=== PATIENT | male | born 1945 | race Caucasian/White ===

== ENCOUNTER 2019-11-01 10:23 | Outpatient (CLI) | payer MEDICARE, SELFPAY ==
[2019-11-01 10:38] LABS: Basophils Percent Auto 0.7 % (0.2-1.2); Eosinophils Absolute Auto 0.1 K/mm3 (0-0.3); Eosinophils Percent Auto 2.1 % (0-4.4); Hematocrit 41.5 % (42.0-52.0); Hemoglobin 13.8 g/dL (14.0-18.0); Immature Granulocyte Absolute 0.02 K/mm3 (0.00-0.031); Immature Granulocyte Percent A 0.5 % (0-0.5); Lymphocytes Absolute Auto 0.62 K/mm3 (0.9-3.2); Lymphocytes Percent Auto 14.8 % (18.3-44.2); Mean Corpuscular HGB Conc 33.3 g/dl (32-36); Mean Corpuscular Hemoglobin 33.6 pg (26-34); Mean Platelet Volume 10.3 fl (7.4-10.4); Monocytes Absolute Auto 0.6 K/mm3 (0.1-0.6); Monocytes Percent Auto 13.1 % (2.6-8.5); Neutrophils Absolute Auto 2.9 K/mm3 (1.3-6.7); Neutrophils Percent Auto 68.8 % (45.5-73.1); Platelet Count Result 192 k/mm3 (150-375); Red Blood Count 4.11 M/mm3 (4.6-6.20); Red Cell Distribution Width 13.2 % (11.5-14.5); White Blood Count 4.2 K/mm3 (4.5-10.0)
[2019-11-01 10:49] LABS: Blood Urea Nitrogen 17 mg/dL (8-26); Carbon Dioxide 24 mmol/L (22-30); Chloride 102 mmol/L (98-109); Estimated Glomerular Filt Rate > 60; Glucose 84 mg/dL (70-105); Sodium 139 mmol/L (138-146)
[2019-11-01 12:18] LABS: Alanine Aminotransferase 28 U/L (4-50); Alkaline Phosphatase 91 U/L (38-126); Aspartate Amino Transferase 43 U/L (17-59); Bilirubin,Total 0.4 mg/dL (0.2-1.3); Blood Urea Nitrogen 18 mg/dL (9-20); Carbon Dioxide 23 mmol/L (22-30); Chloride 104 mmol/L (98-107); Estimated Glomerular Filt Rate > 60; Glucose 87 mg/dL (75-110); Potassium 4.3 mmol/L (3.4-5.0); Sodium 136 mmol/L (137-145)
== END 2019-11-01 10:24 | disposition home or self-care (01) ==
PROVIDERS: PCP Family Medicine; Visit Provider Internal Medicine Hematology & Oncology
DX: D75.89 Other specified diseases of blood and blood-forming organs (principal)
CPT/HCPCS: 36415; 80048; 80053; 85025

== ENCOUNTER 2020-01-19 08:04 | Outpatient (CLI) | payer MEDICARE, SELFPAY ==
[2020-01-19 08:42] LABS: Basophils Percent Auto 0.6 % (0.2-1.2); Eosinophils Absolute Auto 0.1 K/mm3 (0-0.3); Eosinophils Percent Auto 2.8 % (0-4.4); Hemoglobin 14.2 g/dL (14.0-18.0); Immature Granulocyte Absolute 0.01 K/mm3 (0.00-0.031); Immature Granulocyte Percent A 0.2 % (0-0.5); Lymphocytes Absolute Auto 0.94 K/mm3 (0.9-3.2); Lymphocytes Percent Auto 18.7 % (18.3-44.2); Mean Corpuscular HGB Conc 33.8 g/dl (32-36); Mean Corpuscular Hemoglobin 33.6 pg (26-34); Mean Corpuscular Volume 99.5 fl (80-100); Mean Platelet Volume 10.4 fl (7.4-10.4); Monocytes Absolute Auto 0.4 K/mm3 (0.1-0.6); Monocytes Percent Auto 8.8 % (2.6-8.5); Neutrophils Absolute Auto 3.5 K/mm3 (1.3-6.7); Neutrophils Percent Auto 68.9 % (45.5-73.1); Platelet Count Result 193 k/mm3 (150-375); Red Blood Count 4.22 M/mm3 (4.6-6.20)
[2020-01-19 13:12] LABS: Anion Gap 8 mmol/L (8-16); Blood Urea Nitrogen 18 mg/dL (9-20); Calcium 9.4 mg/dL (8.4-10.2); Carbon Dioxide 25 mmol/L (22-30); Chloride 105 mmol/L (98-107); Estimated Glomerular Filt Rate > 60; Glucose 98 mg/dL (75-110); Potassium 4.7 mmol/L (3.4-5.0); Sodium 138 mmol/L (137-145); Uric Acid 5.3 mg/dL (3.5-8.5)
[2020-01-19 13:39] LABS: Prostate Specific Antigen 0.2 ng/mL (< OR = 4.0)
== END 2020-01-19 08:05 | disposition home or self-care (01) ==
PROVIDERS: PCP Family Medicine; Visit Provider Nurse Practitioner Family
DX: Z13.1 Encounter for screening for diabetes mellitus (principal); M10.9 Gout, unspecified; D64.9 Anemia, unspecified; Z13.29 Encounter for screening for other suspected endocrine disorder; Z12.5 Encounter for screening for malignant neoplasm of prostate
CPT/HCPCS: 36415; 80048; 84153; 84443; 84550; 85025; G0103

== ENCOUNTER 2020-01-30 09:00 | Outpatient (CLI) | payer MEDICARE, SELFPAY ==
[2020-01-30 10:44] LABS: Cholesterol 153 mg/dL (0-200); HDL Direct 33 mg/dL; Triglycerides 129 mg/dL (<150)
[2020-01-30 10:55] LABS: LDL Cholesterol Direct 95 mg/dL
== END 2020-01-30 09:01 | disposition home or self-care (01) ==
LOC: ANHLAB 09:02
PROVIDERS: Nurse Practitioner Family; PCP Family Medicine; Visit Provider Internal Medicine Hematology & Oncology
DX: Z13.6 Encounter for screening for cardiovascular disorders (principal)
CPT/HCPCS: 36415; 80061

== ENCOUNTER 2020-03-07 11:21 | Outpatient (CLI) | payer MEDICARE, SELFPAY ==
[2020-03-07 16:47] LABS: Anion Gap 12 mmol/L (8-16); Blood Urea Nitrogen 22 mg/dL (9-20); Calcium 9.7 mg/dL (8.4-10.2); Carbon Dioxide 24 mmol/L (22-30); Chloride 104 mmol/L (98-107); Estimated Glomerular Filt Rate > 60; Glucose 98 mg/dL (75-110); Sodium 140 mmol/L (137-145)
== END 2020-03-07 11:22 | disposition home or self-care (01) ==
PROVIDERS: PCP Family Medicine; Referring Provider Internal Medicine Cardiovascular Disease; Visit Provider Internal Medicine Hematology & Oncology
DX: I42.8 Other cardiomyopathies (principal); E87.5 Hyperkalemia
CPT/HCPCS: 36415; 80048

== ENCOUNTER 2020-04-12 01:27 | Outpatient (CLI) | payer MEDICARE, SELFPAY ==
[2020-04-12 21:24] LABS: SARS-CoV-2 RNA PCR Negative
== END 2020-04-12 01:28 | disposition home or self-care (01) ==
LOC: ANHCOVIDDT 01:27
PROVIDERS: PCP Family Medicine; Visit Provider Internal Medicine Gastroenterology
DX: Z01.812 Encounter for preprocedural laboratory examination (principal); Z20.828 Contact with and (suspected) exposure to other viral communicable diseases
CPT/HCPCS: 87635; C9803; U0003

== ENCOUNTER 2020-04-15 00:41 | Day surgery (SDC) | payer MEDICARE, SELFPAY ==
[2020-04-04 11:03] VITALS: BMI 27.1
[2020-04-15 06:49] VITALS: BP 161/91; PULSE 60; RESP 16; TEMP 36.4; O2SAT 99
[2020-04-15] MEDS: LACTATED RINGERS 1,000 ML 150 ML IV CONT (06:57)
--- NOTE | 2020-04-15 07:49 | WPDANESEPPF ---
Anes - Initial Pre Proc Eval Procedure: Operation Date: 04/15/20 08:00 Proposed Procedures p Screening Colonoscopy - Joce Puga MD Date/Time: 04/15/20 07:49 Surgeon: Joce Puga MD Pre Op Diagnosis: Neoplasm Screening Patient Data Age: 74 Gender: M Height: 6 ft Weight: 89.9 kg Last Vital Signs Temp 97.6 F 04/15/20 06:49 Pulse 60 04/15/20 06:49 Resp 16 04/15/20 06:49 BP 161/91 H 04/15/20 06:49 Pulse Ox 99 04/15/20 06:49 Allergies Allergy/AdvReac Type Severity Reaction Status Date / Time No Known Allergies Allergy Verified 04/15/20 06:47 Home Medications Medication Instructions Recorded Confirmed Type metoprolol tartrate 25 mg tablet 25 mg PO BID tablet 06/23/19 04/04/20 History sotalol 120 mg tablet 120 mg PO Q12H 06/23/19 04/04/20 History allopurinol 300 mg PO DAILY 04/04/20 04/04/20 History meloxicam 15 mg PO DAILY 04/04/20 04/04/20 History rosuvastatin 20 mg PO DAILY 04/04/20 04/04/20 History Patient hx anesthesia problems: none Family hx anesthesia problems: none PMFSH Past Medical History Medical History (Updated 03/07/20 @ 10:54 by Hermilo Jacobsen MD) Anemia, unspecified BMI 27.0-27.9,adult Cardiomyopathy Dyspnea on exertion Need for pneumococcal vaccination Tinea cruris Family History Family History Sibling Family history of elevated blood lipids Father Hypertension Family history of heart disease in male family member before age 55 Mother Hypertension Family history of heart disease in male family member before age 55 Social History Social History Smoking status: Never smoker Alcohol intake: never Substance use: never Substance use type: does not use Spiritual care concerns: No Anes - Eval Final PreProcedure Day of Procedure 04/15/20 07:49 Patient weight: normal Heart: irregular rhythm Lungs: clear to auscultation Airway: Mallampati scale class II Neurological: alert and oriented Last oral intake: >/= 8 hours ASA classification: III Anesthetic plan: proceed Anesthesia type and monitoring: general GIVS and standard monitoring Informed Consent: The patient's anesthetic plan and its attendant risks and benefits were discussed with the patient/family/POA. Questions were solicited and answers provided to the satisfaction of the patient/family/POA.
--- NOTE | 2020-04-15 08:00 | PM.HPGS ---
History of Present Illness History of Present Illness Consent: Risks, benefits, and alternatives have been discussed and questions answered. Patient agrees to proceed with procedure. Chief complaint: Neoplasm Screening Narrative: Yehuda Palm is a 74 year old male here for screening colonoscopy, last one about 10 years ago. Also h/o celiac disease. Review of Systems Constitutional: Constitutional: Denies headache(s) and Denies weakness Eyes: Eyes: Denies blurry vision ENT: Reports Normal hearing present, Denies headache(s) and Denies neck pain Cardiovascular: Cardiovascular: Denies chest pain and Denies dyspnea Respiratory: Respiratory: Denies dyspnea Gastrointestinal: Gastrointestinal: Reports no additional gastrointestinal complaints Genitourinary: Genitourinary: Denies dysuria Musculoskeletal: Musculoskeletal: Denies neck pain Integumentary/Breasts: Skin/Breast: Denies dry skin Neurologic: Reports Normal hearing present, Denies headache(s) and Denies weakness Psychiatric: Psychiatric: Denies anxiety Endocrine: Endocrine: Denies change in body appearance Hematologic/Lymphatic: Hematologic/Lymphatic: Denies easy bleeding Allergic/Immunologic: Allergic/Immunologic: Denies urticaria PMF Past Medical History Medical History (Updated 04/15/20 @ 08:01 by Joce Puga MD) Anemia, unspecified BMI 27.0-27.9,adult Cardiomyopathy Celiac disease Colon cancer screening Dyspnea on exertion Need for pneumococcal vaccination Tinea cruris Family History Family History Sibling Family history of elevated blood lipids Father Hypertension Family history of heart disease in male family member before age 55 Mother Hypertension Family history of heart disease in male family member before age 55 Social History Social History Smoking status: Never smoker Alcohol intake: never Substance use: never Substance use type: does not use Spiritual care concerns: No Meds Home Medications and Allergies Home Medications Medication Instructions Recorded Confirmed Type metoprolol tartrate 25 mg tablet 25 mg PO BID tablet 06/23/19 04/04/20 History sotalol 120 mg tablet 120 mg PO Q12H 06/23/19 04/04/20 History allopurinol 300 mg PO DAILY 04/04/20 04/04/20 History meloxicam 15 mg PO DAILY 04/04/20 04/04/20 History rosuvastatin 20 mg PO DAILY 04/04/20 04/04/20 History Allergies Allergy/AdvReac Type Severity Reaction Status Date / Time No Known Allergies Allergy Verified 04/15/20 06:47 Vital Signs Vital Signs - 24 hr 04/15/20 06:49 Temperature 97.6 F Pulse Rate 60 Respiratory Rate 16 Blood Pressure 161/91 H Pulse Oximetry 99 Exam Const: General: comfortable and no acute distress HENMT: General nose exam: Normal nares present Eyes: General: appearance normal, both eyes and all related structures Neck: Neck: no JVD Resp: Auscultation: clear to auscultation bilaterally Cardio: Rate: regular rate Rhythm: regular rhythm GI: Inspection: non-distended GI Palp: Yes Soft to palpation Skin: General skin exam: normal color Neuro: General: gait normal Speech: normal speech Extrem: General: normal to inspection Psych: Mental Status: mental status grossly normal Assessment and Plan Assessment and plan (1) Colon cancer screening: Code(s): Z12.11 - Encounter for screening for malignant neoplasm of colon Status: Acute Assessment and Plan: will proceed with colonoscopy (2) Celiac disease: Code(s): K90.0 - Celiac disease Status: Acute Assessment and Plan: controlled with gluten free diet (3) Cardiomyopathy: Qualifiers: Cardiomyopathy type: other Qualified Code(s): I42.8 - Other cardiomyopathies Code(s): I42.9 - Cardiomyopathy, unspecified Status: Acute
[2020-04-15 08:17] VITALS: BP 88/56; PULSE 58; RESP 15; O2SAT 95
[2020-04-15 08:27] VITALS: BP 101/64; PULSE 54; RESP 15; O2SAT 96
[2020-04-15 08:37] VITALS: BP 120/75; PULSE 57; RESP 19; O2SAT 98
[2020-04-15 08:47] VITALS: BP 130/79; PULSE 53; RESP 17; O2SAT 96
== END 2020-04-15 09:03 | disposition home or self-care (01) ==
PROVIDERS: PCP Family Medicine; Visit Provider Internal Medicine Gastroenterology
PROC: 0DJD8ZZ Inspection of Lower Intestinal Tract, Via Natural or Artificial Opening Endoscopic (ICD-10-PCS; CPT 45378; principal; 2020-04-15 08:00)
DX: Z12.11 Encounter for screening for malignant neoplasm of colon (principal); K64.8 Other hemorrhoids; D12.2 Benign neoplasm of ascending colon; D12.4 Benign neoplasm of descending colon; K90.0 Celiac disease; D64.9 Anemia, unspecified; I42.9 Cardiomyopathy, unspecified
CPT/HCPCS: 45380; 88305; J2704; J7120

== ENCOUNTER 2020-04-22 10:55 | Outpatient (CLI) | payer MEDICARE, SELFPAY ==
[2020-04-22 11:11] LABS: Basophils Percent Auto 0.3 % (0.2-1.2); Eosinophils Absolute Auto 0.2 K/mm3 (0-0.3); Eosinophils Percent Auto 2.9 % (0-4.4); Hematocrit 41.1 % (42.0-52.0); Hemoglobin 13.4 g/dL (14.0-18.0); Immature Granulocyte Absolute 0.01 K/mm3 (0.00-0.031); Immature Granulocyte Percent A 0.2 % (0-0.5); Lymphocytes Absolute Auto 1.33 K/mm3 (0.9-3.2); Lymphocytes Percent Auto 22.8 % (18.3-44.2); Mean Corpuscular HGB Conc 32.6 g/dl (32-36); Mean Corpuscular Hemoglobin 32.8 pg (26-34); Mean Corpuscular Volume 100.5 fl (80-100); Mean Platelet Volume 10.6 fl (7.4-10.4); Monocytes Absolute Auto 0.6 K/mm3 (0.1-0.6); Monocytes Percent Auto 9.4 % (2.6-8.5); Neutrophils Absolute Auto 3.8 K/mm3 (1.3-6.7); Neutrophils Percent Auto 64.4 % (45.5-73.1); Platelet Count Result 171 k/mm3 (150-375); Red Blood Count 4.09 M/mm3 (4.6-6.20); White Blood Count 5.8 K/mm3 (4.5-10.0)
[2020-04-22 14:02] LABS: Alanine Aminotransferase 48 U/L (4-50); Albumin Level 3.8 g/dL (3.5-5.1); Alkaline Phosphatase 79 U/L (38-126); Anion Gap 5 mmol/L (8-16); Aspartate Amino Transferase 50 U/L (17-59); Bilirubin,Total 0.7 mg/dL (0.2-1.3); Blood Urea Nitrogen 19 mg/dL (9-20); Calcium 9.3 mg/dL (8.4-10.2); Carbon Dioxide 28 mmol/L (22-30); Chloride 104 mmol/L (98-107); Estimated Glomerular Filt Rate > 60; Glucose 98 mg/dL (75-110); Lactate Dehydrogenase 358 U/L (313-618); Potassium 4.4 mmol/L (3.4-5.0); Sodium 137 mmol/L (137-145)
[2020-04-22 16:21] LABS: Folic Acid 13.7 ng/mL (2.76->20)
== END 2020-04-22 10:56 | disposition home or self-care (01) ==
LOC: ANHLAB 10:57
PROVIDERS: PCP Family Medicine; Visit Provider Internal Medicine Hematology & Oncology
DX: D75.89 Other specified diseases of blood and blood-forming organs (principal)
CPT/HCPCS: 36415; 80053; 82607; 82746; 83615; 85025

== ENCOUNTER 2021-01-23 10:00 | Outpatient (CLI) | payer MEDICARE, SELFPAY ==
[2021-01-23 10:26] LABS: Basophils Percent Auto 0.4 % (0.2-1.2); Eosinophils Absolute Auto 0.1 K/mm3 (0-0.3); Eosinophils Percent Auto 2.3 % (0-4.4); Hematocrit 42.4 % (42.0-52.0); Hemoglobin 14.2 g/dL (14.0-18.0); Immature Granulocyte Absolute 0.01 K/mm3 (0.00-0.031); Immature Granulocyte Percent A 0.2 % (0-0.5); Lymphocytes Absolute Auto 1.11 K/mm3 (0.9-3.2); Lymphocytes Percent Auto 21.3 % (18.3-44.2); Mean Corpuscular HGB Conc 33.5 g/dl (32-36); Mean Corpuscular Hemoglobin 33.5 pg (26-34); Mean Platelet Volume 10.3 fl (7.4-10.4); Monocytes Absolute Auto 0.5 K/mm3 (0.1-0.6); Neutrophils Absolute Auto 3.4 K/mm3 (1.3-6.7); Neutrophils Percent Auto 65.8 % (45.5-73.1); Platelet Count Result 171 k/mm3 (150-375); Red Blood Count 4.24 M/mm3 (4.6-6.20); Red Cell Distribution Width 13.2 % (11.5-14.5); White Blood Count 5.2 K/mm3 (4.5-10.0)
[2021-01-23 11:38] LABS: Alanine Aminotransferase 62 U/L (4-50); Albumin Level 4.2 g/dL (3.5-5.1); Alkaline Phosphatase 88 U/L (38-126); Anion Gap 5 mmol/L (8-16); Aspartate Amino Transferase 66 U/L (17-59); Blood Urea Nitrogen 24 mg/dL (9-20); Calcium 9.6 mg/dL (8.4-10.2); Carbon Dioxide 28 mmol/L (22-30); Chloride 103 mmol/L (98-107); Estimated Glomerular Filt Rate > 60; Glucose 93 mg/dL (65-110); Potassium 4.9 mmol/L (3.4-5.0); Sodium 136 mmol/L (137-145)
[2021-01-23 12:51] LABS: Folic Acid > 20.0 ng/mL (2.76->20)
== END 2021-01-23 10:01 | disposition home or self-care (01) ==
LOC: ANHLAB 10:06
PROVIDERS: PCP Family Medicine; Visit Provider Internal Medicine Hematology & Oncology
DX: D53.9 Nutritional anemia, unspecified (principal)
CPT/HCPCS: 36415; 80053; 82607; 82746; 85025

== ENCOUNTER 2021-03-04 09:04 | Outpatient (CLI) | payer MEDICARE, SELFPAY ==
[2021-03-04 14:20] LABS: Alanine Aminotransferase 65 U/L (4-50); Albumin Level 4.3 g/dL (3.5-5.1); Alkaline Phosphatase 81 U/L (38-126); Aspartate Amino Transferase 62 U/L (17-59); Bilirubin,Total 0.8 mg/dL (0.2-1.3); Cholesterol 87 mg/dL (0-200); Creatine Kinase 93 U/L (55-170); HDL Direct 27 mg/dL; Triglycerides 113 mg/dL (<150)
[2021-03-04 14:37] LABS: LDL Cholesterol Direct 37 mg/dL
[2021-03-04 14:51] LABS: Prostate Specific Antigen 0.3 ng/mL (< OR = 4.0)
== END 2021-03-04 09:05 | disposition home or self-care (01) ==
LOC: ANHLAB 09:07
PROVIDERS: Physician Assistant Medical; PCP Family Medicine; Visit Provider Internal Medicine Hematology & Oncology
DX: E78.5 Hyperlipidemia, unspecified (principal); Z12.5 Encounter for screening for malignant neoplasm of prostate
CPT/HCPCS: 36415; 80061; 80076; 82550; 84153; G0103

== ENCOUNTER 2021-03-24 09:26 | Outpatient (CLI) | payer MEDICARE, SELFPAY ==
[2021-03-24 19:25] LABS: Hepatitis B Surface Antigen Negative (Negative)
[2021-03-24 19:33] LABS: HAV RESULT Negative (Negative); Hepatitis B Core IgM Result Negative (Negative)
[2021-03-24 19:42] LABS: Hepatitis C Virus Antibody Negative (Negative)
== END 2021-03-24 09:27 | disposition home or self-care (01) ==
LOC: ANHLAB 09:28
PROVIDERS: Visit Provider Physician Assistant Medical
DX: R79.89 Other specified abnormal findings of blood chemistry (principal); R94.5 Abnormal results of liver function studies
CPT/HCPCS: 36415; 80074

== ENCOUNTER → 2021-03-24 10:11 | Outpatient (CLI) | payer MEDICARE, SELFPAY ==
--- NOTE | ~2021-03-24 | US_ITS ---
US abdomen complete EXAMINATION: US Abdomen Complete INDICATION: Elevated liver enzymes PROCEDURE: Realtime High Resolution abdomen ultrasound. COMPARISON: No prior studies for comparison FINDINGS: Gallbladder within normal limits. No gallstones, pericholecystic fluid, gallbladder wall t hickening or biliary dilatation. Common bile duct measures 3 mm. Liver echotexture within normal limits without focal mass. Pancreas within normal limits. Pancreati c tail is obscured by bowel gas. Spleen is unremarkeable. Renal echotexture is within normal limits bilaterally without hydronephrosis, contour deforming mass or renal stone. Right kidney measures 10.5 cm. Left kidney measures 10.2 cm. Visualized aspects of the aorta and IVC are within normal limits. Portal vein is patent. No sonograph ic Cristina's sign indicated by the technologist. IMPRESSION: 1: Normal abdominal ultrasound. Reviewed, dictated and finalized at location A. ANICAL INSULATOR
== END ==
PROVIDERS: PCP Physician Assistant Medical; Visit Provider Physician Assistant Medical
DX: R79.89 Other specified abnormal findings of blood chemistry (principal)
CPT/HCPCS: 76700

== ENCOUNTER 2021-04-29 10:13 | Outpatient (CLI) | payer MEDICARE, SELFPAY ==
[2021-04-29 12:22] LABS: Alanine Aminotransferase 36 U/L (4-50); Albumin Level 4.2 g/dL (3.5-5.1); Alkaline Phosphatase 86 U/L (38-126); Aspartate Amino Transferase 68 U/L (17-59); Bilirubin,Total 0.9 mg/dL (0.2-1.3)
[2021-05-02 05:28] LABS: GGT 24 U/L (3-70)
== END 2021-04-29 10:14 | disposition home or self-care (01) ==
LOC: ANHLAB 10:16
PROVIDERS: PCP Physician Assistant Medical; Visit Provider Internal Medicine Hematology & Oncology
DX: R79.89 Other specified abnormal findings of blood chemistry (principal)
CPT/HCPCS: 36415; 80076; 82977

== ENCOUNTER 2021-06-04 13:02 | Outpatient (CLI) | payer MEDICARE, SELFPAY ==
[2021-06-04 13:44] LABS: Hematocrit 42.6 % (42.0-52.0); Hemoglobin 14.3 g/dL (14.0-18.0); Mean Corpuscular HGB Conc 33.6 g/dl (32-36); Mean Corpuscular Hemoglobin 34.4 pg (26-34); Mean Corpuscular Volume 102.4 fl (80-100); Mean Platelet Volume 10.5 fl (7.4-10.4); Platelet Count Result 170 k/mm3 (150-375); Red Blood Count 4.16 M/mm3 (4.6-6.20); Red Cell Distribution Width 13.1 % (11.5-14.5)
[2021-06-04 15:13] LABS: Alanine Aminotransferase 43 U/L (4-50); Albumin Level 4.2 g/dL (3.5-5.1); Alkaline Phosphatase 84 U/L (38-126); Anion Gap 12 mmol/L (8-16); Aspartate Amino Transferase 54 U/L (17-59); Bilirubin,Total 0.9 mg/dL (0.2-1.3); Blood Urea Nitrogen 28 mg/dL (9-20); Calcium 9.3 mg/dL (8.4-10.2); Carbon Dioxide 22 mmol/L (22-30); Chloride 103 mmol/L (98-107); Estimated Glomerular Filt Rate 59; Glucose 101 mg/dL (65-110); Potassium 4.5 mmol/L (3.4-5.0); Sodium 137 mmol/L (137-145)
[2021-06-04 17:35] LABS: Hepatitis B Surface Antigen Negative (Negative)
[2021-06-04 17:53] LABS: Hepatitis B Surface Anti Res Negative; Hepatitis C Virus Antibody Negative (Negative)
[2021-06-07 21:48] LABS: Actin Antibody (IgG) 69 U (<20)
[2021-06-08 10:01] LABS: Mitochondrial (M2) Ab (IgG) <=20.0 U (<=20.0)
[2021-06-09 20:06] LABS: Alpha Fetoprotein Tumor Marker 7.8 ng/mL (<6.1)
== END 2021-06-04 13:03 | disposition home or self-care (01) ==
LOC: ANHLAB 13:04
PROVIDERS: PCP Physician Assistant Medical; Visit Provider Internal Medicine Gastroenterology
DX: R74.8 Abnormal levels of other serum enzymes (principal)
CPT/HCPCS: 36415; 80053; 82105; 82728; 83516; 83520; 84443; 85027; 86038; 86706; 86803; 87340

== ENCOUNTER → 2021-07-16 08:56 | Outpatient (CLI) | payer MEDICARE, SELFPAY ==
--- NOTE | ~2021-07-16 | CT_ITS ---
EXAMINATION: CT abdomen pelvis w con DATE: 07/16/2021 09:39 INDICATION: Elevated liver enzymes TECHNIQUE: Computed tomography (CT) of the abdomen and pelvis was performed with 100 cc Omnipaque 350 intravenous contrast. The dose-length product was 924.20 mGy-cm. Automated exposure control and iter ative reconstruction technique were employed. COMPARISON: None. FINDINGS: Lung bases are unremarkable. No significant pleural or pericardial effusions. Fatty infiltr ation of the liver. The spleen, pancreas, adrenal glands and kidneys are unremarkable. Gallbladder is present. Colonic diverticulosis without evidence for diverticulitis. Nonobstructive bowel pattern. G allbladder is present. No significant vascular abnormality. No lymphadenopathy. No free air or free f luid. Moderate lumbar spondylosis. No acute osseous abnormality. IMPRESSION: 1. No acute abdominal abnormality. Reviewed, dictated and finalized at location A. [employer] [facility] DIRECTOR
[2021-07-16 09:31] LABS: Estimated Glomerular Filt Rate 59
== END ==
PROVIDERS: Visit Provider Internal Medicine Gastroenterology
DX: R74.8 Abnormal levels of other serum enzymes (principal)
CPT/HCPCS: 74177; Q9967

== ENCOUNTER 2021-08-11 09:35 | Outpatient (CLI) | payer MEDICARE, SELFPAY ==
[2021-08-11 10:57] LABS: Alanine Aminotransferase 59 U/L (4-50); Albumin Level 4.3 g/dL (3.5-5.1); Alkaline Phosphatase 83 U/L (38-126); Anion Gap 8 mmol/L (8-16); Aspartate Amino Transferase 59 U/L (17-59); Bilirubin,Total 0.7 mg/dL (0.2-1.3); Blood Urea Nitrogen 27 mg/dL (9-20); Calcium 8.9 mg/dL (8.4-10.2); Carbon Dioxide 22 mmol/L (22-30); Chloride 105 mmol/L (98-107); Estimated Glomerular Filt Rate > 60; Glucose 96 mg/dL (65-110); Potassium 4.9 mmol/L (3.4-5.0); Sodium 135 mmol/L (137-145)
[2021-08-11 12:08] LABS: Iron 88 ug/dL (49-181)
[2021-08-11 12:23] LABS: Percent Iron Saturation 27 % (20-50)
[2021-08-13 13:42] LABS: Actin Antibody (IgG) 68 U (<20)
== END 2021-08-11 09:36 | disposition home or self-care (01) ==
LOC: ANHLAB 09:36
PROVIDERS: Internal Medicine Gastroenterology; Visit Provider Internal Medicine Hematology & Oncology
DX: R74.8 Abnormal levels of other serum enzymes (principal); R77.8 Other specified abnormalities of plasma proteins; R89.4 Abnormal immunological findings in specimens from other organs, systems and tissues
CPT/HCPCS: 36415; 80053; 82728; 83516; 83540; 83550

== ENCOUNTER 2021-11-18 01:56 | Day surgery (SDC) | payer MEDICARE, SELFPAY ==
[2021-11-03 13:59] VITALS: BMI 27.8
[2021-11-18 08:36] VITALS: BP 133/76; PULSE 52; RESP 16; TEMP 36.4; O2SAT 100
[2021-11-18] MEDS: LACTATED RINGERS 1,000 ML 150 ML IV CONT (08:44)
--- NOTE | 2021-11-18 09:11 | WPDANESEPPF ---
Anes - Initial Pre Proc Eval Procedure: Operation Date: 11/18/21 10:00 Proposed Procedures p Esophagogastroduodenoscopy - Joce Puga MD Date/Time: 11/18/21 09:11 Surgeon: Joce Puga MD Pre Op Diagnosis: Celiac Disease Patient Data Age: 76 Gender: M Height: 1.83 m Weight: 92.8 kg Last Vital Signs Temp 97.5 F L 11/18/21 08:36 Pulse 52 L 11/18/21 08:36 Resp 16 11/18/21 08:36 BP 133/76 11/18/21 08:36 Pulse Ox 100 11/18/21 08:36 O2 Del Method Room Air 11/18/21 08:36 Allergies Allergy/AdvReac Type Severity Reaction Status Date / Time No Known Allergies Allergy Verified 11/18/21 08:35 Home Medications Medication Instructions Recorded Confirmed Type metoprolol tartrate 25 mg tablet 25 mg PO BID 06/23/19 11/18/21 History sotalol 120 mg tablet 120 mg PO Q12H 06/23/19 11/18/21 History meloxicam 15 mg tablet See Rx Instructions .Route 08/07/21 11/18/21 Rx .COMPLEX #30 tabs allopurinol 300 mg tablet See Rx Instructions .Route 11/03/21 11/18/21 Rx .COMPLEX #90 tabs rosuvastatin 20 mg tablet See Rx Instructions .Route 11/03/21 11/18/21 Rx .COMPLEX #90 tabs Patient hx anesthesia problems: none Family hx anesthesia problems: none Results Review: All pre-operative results and documents have been reviewed as part of the pre-operative evaluation. [facility] Past Medical History Medical History (Updated 09/16/21 @ 16:49 by JENNIFER Castillo) Abnormal results of liver function studies Anemia, unspecified BMI 27.0-27.9,adult BMI 28.0-28.9,adult Cardiomyopathy Celiac disease Colon cancer screening Dyspnea on exertion Fatty liver History of adenomatous polyp of colon Need for pneumococcal vaccination Overweight (BMI 25.0-29.9) Tinea cruris Surgical History Surgical History Hx of cataract surgery Family History Family History Sibling Family history of elevated blood lipids Father Hypertension Family history of heart disease in male family member before age 55 Mother Hypertension Family history of heart disease in male family member before age 55 Social History Social History Smoking status: Former smoker Tobacco type: cigarettes Alcohol intake: never Substance use: never Substance use type: does not use Living arrangements: with family Additional living arrangements comments: Gender identity (if verbalized by the patient): Male Sexual Orientation (if Verbalized by the Patient): Straight or Heterosexual Spiritual care concerns: No Agree to blood products: Yes Anes - Eval Final PreProcedure Day of Procedure 11/18/21 09:11 Patient weight: overweight Heart: regular rate and rhythm Lungs: clear to auscultation Neurological: alert and oriented Last oral intake: >/= 8 hours ASA classification: III Emergent: no Anesthetic plan: proceed Anesthesia type and monitoring: general GIVS and standard monitoring Results Review: All pre-operative results and documents have been reviewed as part of the pre-operative evaluation. Informed Consent: The patient's anesthetic plan and its attendant risks and benefits were discussed with the patient/family/POA. Questions were solicited and answers provided to the satisfaction of the patient/family/POA.
--- NOTE | 2021-11-18 09:25 | PM.HPGS ---
History of Present Illness History of Present Illness Consent: Risks, benefits, and alternatives have been discussed and questions answered. Patient agrees to proceed with procedure. Chief complaint: Celiac Disease Narrative: Yehuda Palm is a 76 year old male with known history of celiac disease diagnosed in 2017, now he is on gluten free diet and doing quite well, here to reassess duodenum again. Review of Systems Constitutional: Constitutional: Denies headache(s) and Denies weakness Eyes: Eyes: Denies blurry vision ENT: Reports Normal hearing present, Denies headache(s) and Denies neck pain Cardiovascular: Cardiovascular: Denies chest pain and Denies dyspnea Respiratory: Respiratory: Denies dyspnea Gastrointestinal: Gastrointestinal: Reports no additional gastrointestinal complaints Genitourinary: Genitourinary: Denies dysuria Musculoskeletal: Musculoskeletal: Denies neck pain Integumentary/Breasts: Skin/Breast: Denies dry skin Neurologic: Reports Normal hearing present, Denies headache(s) and Denies weakness Psychiatric: Psychiatric: Denies anxiety Endocrine: Endocrine: Denies change in body appearance Hematologic/Lymphatic: Hematologic/Lymphatic: Denies easy bleeding Allergic/Immunologic: Allergic/Immunologic: Denies urticaria [facility] Past Medical History Medical History (Updated 09/16/21 @ 16:49 by JENNIFER Castillo) Abnormal results of liver function studies Anemia, unspecified BMI 27.0-27.9,adult BMI 28.0-28.9,adult Cardiomyopathy Celiac disease Colon cancer screening Dyspnea on exertion Fatty liver History of adenomatous polyp of colon Need for pneumococcal vaccination Overweight (BMI 25.0-29.9) Tinea cruris Surgical History Surgical History Hx of cataract surgery Family History Family History Sibling Family history of elevated blood lipids Father Hypertension Family history of heart disease in male family member before age 55 Mother Hypertension Family history of heart disease in male family member before age 55 Social History Social History Smoking status: Former smoker Tobacco type: cigarettes Alcohol intake: never Substance use: never Substance use type: does not use Living arrangements: with family Additional living arrangements comments: Gender identity (if verbalized by the patient): Male Sexual Orientation (if Verbalized by the Patient): Straight or Heterosexual Spiritual care concerns: No Agree to blood products: Yes Meds Home Medications and Allergies Home Medications Medication Instructions Recorded Confirmed Type metoprolol tartrate 25 mg tablet 25 mg PO BID 06/23/19 11/18/21 History sotalol 120 mg tablet 120 mg PO Q12H 06/23/19 11/18/21 History meloxicam 15 mg tablet See Rx Instructions .Route 08/07/21 11/18/21 Rx .COMPLEX #30 tabs allopurinol 300 mg tablet See Rx Instructions .Route 11/03/21 11/18/21 Rx .COMPLEX #90 tabs rosuvastatin 20 mg tablet See Rx Instructions .Route 11/03/21 11/18/21 Rx .COMPLEX #90 tabs Allergies Allergy/AdvReac Type Severity Reaction Status Date / Time No Known Allergies Allergy Verified 11/18/21 08:35 Vital Signs Vital Signs - 24 hr 11/18/21 08:36 Temperature 97.5 F L Pulse Rate 52 L Respiratory Rate 16 Blood Pressure 133/76 Pulse Oximetry 100 Oxygen Delivery Room Air Exam Const: General: comfortable and no acute distress HENMT: General nose exam: Normal nares present Eyes: General: appearance normal, both eyes and all related structures Neck: Neck: no JVD Resp: Auscultation: clear to auscultation bilaterally Cardio: Rate: regular rate Rhythm: regular rhythm GI: Inspection: non-distended GI Palp: Yes Soft to palpation Skin: General skin exam: normal color Neuro: General
[2021-11-18 09:45] VITALS: BP 111/66; PULSE 55; RESP 12; O2SAT 100
[2021-11-18 09:55] VITALS: BP 121/64; PULSE 52; RESP 12; O2SAT 100
[2021-11-18 10:05] VITALS: BP 124/68; PULSE 53; RESP 13; O2SAT 100
== END 2021-11-18 10:13 | disposition home or self-care (01) ==
PROVIDERS: PCP Family Medicine; Visit Provider Internal Medicine Gastroenterology
PROC: 0DJ08ZZ Inspection of Upper Intestinal Tract, Via Natural or Artificial Opening Endoscopic (ICD-10-PCS; CPT 43235; principal; 2021-11-18 10:00)
DX: K90.0 Celiac disease (principal); K29.50 Unspecified chronic gastritis without bleeding; D64.9 Anemia, unspecified; I42.9 Cardiomyopathy, unspecified; K76.0 Fatty (change of) liver, not elsewhere classified; Z86.010 Personal history of colon polyps; Z87.891 Personal history of nicotine dependence
CPT/HCPCS: 43239; 88305; J2704; J7120

== ENCOUNTER 2022-01-20 11:57 | Outpatient (CLI) | payer MEDICARE, SELFPAY ==
[2022-01-20 12:13] LABS: Basophils Percent Auto 0.3 % (0.2-1.2); Eosinophils Absolute Auto 0.1 K/mm3 (0-0.3); Eosinophils Percent Auto 2.1 % (0-4.4); Hemoglobin 13.8 g/dL (14.0-18.0); Immature Granulocyte Absolute 0.02 K/mm3 (0.00-0.031); Immature Granulocyte Percent A 0.3 % (0-0.5); Lymphocytes Absolute Auto 1.26 K/mm3 (0.9-3.2); Lymphocytes Percent Auto 20.4 % (18.3-44.2); Mean Corpuscular HGB Conc 33.7 g/dl (32-36); Mean Corpuscular Hemoglobin 34.4 pg (26-34); Mean Corpuscular Volume 102.2 fl (80-100); Mean Platelet Volume 10.2 fl (7.4-10.4); Monocytes Absolute Auto 0.5 K/mm3 (0.1-0.6); Monocytes Percent Auto 8.4 % (2.6-8.5); Neutrophils Absolute Auto 4.2 K/mm3 (1.3-6.7); Neutrophils Percent Auto 68.5 % (45.5-73.1); Platelet Count Result 156 k/mm3 (150-375); Red Blood Count 4.01 M/mm3 (4.6-6.20); Red Cell Distribution Width 13.2 % (11.5-14.5); White Blood Count 6.2 K/mm3 (4.5-10.0)
[2022-01-20 13:46] LABS: Alanine Aminotransferase 45 U/L (6-50); Albumin Level 4.3 g/dL (3.5-5.1); Alkaline Phosphatase 86 U/L (38-126); Anion Gap 9 mmol/L (8-16); Aspartate Amino Transferase 47 U/L (17-59); Bilirubin,Total 0.7 mg/dL (0.2-1.3); Blood Urea Nitrogen 19 mg/dL (9-20); Calcium 9.5 mg/dL (8.4-10.2); Carbon Dioxide 22 mmol/L (22-30); Chloride 106 mmol/L (98-107); Estimated Glomerular Filt Rate > 60; Glucose 109 mg/dL (65-110); Potassium 4.3 mmol/L (3.4-5.0); Sodium 137 mmol/L (137-145)
[2022-01-20 14:47] LABS: Folic Acid 18.6 ng/mL (2.76->20)
== END 2022-01-20 11:58 | disposition home or self-care (01) ==
LOC: ANHLAB 11:59
PROVIDERS: PCP Family Medicine; Visit Provider Internal Medicine Hematology & Oncology
DX: D53.9 Nutritional anemia, unspecified (principal)
CPT/HCPCS: 36415; 80053; 82607; 82746; 85025

== ENCOUNTER 2022-04-06 10:50 | Outpatient (CLI) | payer MEDICARE, SELFPAY ==
[2022-04-06 11:12] LABS: Hematocrit 41.2 % (42.0-52.0); Mean Corpuscular Hemoglobin 34.4 pg (26-34); Mean Corpuscular Volume 101.2 fl (80-100); Mean Platelet Volume 10.3 fl (7.4-10.4); Platelet Count Result 180 k/mm3 (150-375); Red Blood Count 4.07 M/mm3 (4.6-6.20); Red Cell Distribution Width 13.6 % (11.5-14.5); White Blood Count 5.8 K/mm3 (4.5-10.0)
[2022-04-06 16:13] LABS: Iron 125 ug/dL (49-181)
[2022-04-06 16:14] LABS: Alanine Aminotransferase 40 U/L (6-50); Albumin Level 4.4 g/dL (3.5-5.1); Alkaline Phosphatase 70 U/L (38-126); Anion Gap 11 mmol/L (8-16); Aspartate Amino Transferase 48 U/L (17-59); Blood Urea Nitrogen 19 mg/dL (9-20); Calcium 9.4 mg/dL (8.4-10.2); Carbon Dioxide 24 mmol/L (22-30); Chloride 103 mmol/L (98-107); Estimated Glomerular Filt Rate > 60; Glucose 99 mg/dL (65-110); Potassium 4.1 mmol/L (3.4-5.0); Sodium 138 mmol/L (137-145)
[2022-04-06 16:18] LABS: INR 1.1; Prothrombin Time 13.5 Seconds (11.1-14.7)
[2022-04-06 16:23] LABS: Percent Iron Saturation 37 % (20-50)
[2022-04-09 14:00] LABS: GGT 25 U/L (3-70)
[2022-04-09 22:50] LABS: Actin Antibody (IgG) 59 U (<20)
[2022-04-11 22:33] LABS: Ceruloplasmin 25 mg/dL (18-36)
[2022-04-12 09:57] LABS: LKM 1 Antibody <=20.0 U (<=20.0)
[2022-04-12 16:22] LABS: Alpha Fetoprotein Tumor Marker 6.8 ng/mL (<6.1)
[2022-04-13 23:32] LABS: ALT 30 U/L (9-46); Alpha-2-Macroglobulin 196 mg/dL (106-279); Apolipoprotein A1 126 mg/dL (94-176); Fibrosis Score 0.45; Fibrosis Stage F1-F2; GGT 25 U/L (3-70); Haptoglobin 157 mg/dL (43-212); Necroinflammat Act Grade A0-A1; Total Bilirubin 0.8 mg/dL (0.2-1.2)
== END 2022-04-06 10:51 | disposition home or self-care (01) ==
PROVIDERS: PCP Family Medicine; Visit Provider Nurse Practitioner Family
DX: K76.0 Fatty (change of) liver, not elsewhere classified (principal); R94.5 Abnormal results of liver function studies; K90.0 Celiac disease
CPT/HCPCS: 36415; 80053; 81596; 82104; 82105; 82390; 82728; 82977; 83516; 83540; 83550; 85027; 85610; 86038; 86376

== ENCOUNTER 2022-05-04 03:19 | Outpatient (CLI) | payer MEDICARE, SELFPAY ==
[2022-04-22 13:05] VITALS: BMI 28.5
--- NOTE | 2022-04-22 13:05 | PC.NURSE ---
Pre Radiology instructions Report to the RADIOLOGY DEPT at time _0900_ on date _05/04/22_. Procedure Time: _929_. YOU MAY BE MONITORED AT HOSPITAL FOR UP TO 4 HOURS AFTER YOUR PROCEDURE. One visitor will be allowed to accompany the patient into the hospital. The visitor will be instructed to remain with patient at all times or leave the building due to restrictions. We will allow the visitor to come back to the postoperative area when patient is ready. NO children visitors allowed at this time. You and your visitor will be asked to self-screen and do not enter if you have any COVID symptoms. A mask is required within the hospital. Patients are to have no food or drink 6 hours prior to procedure time (0330 AM) Driving will be restricted after the procedure, you must have a person to drive you home. Labs will NOT be drawn. When the procedure is completed, you will be taken to outpatient where you will be monitored for several hours. You may have one visitor in this area. Other than holding anti-coagulants, patient may take other medication(s) as scheduled. Prior to your appointment date patients are instructed to hold anti-coagulants after discussing with ordering provider to stop. If unable to discontinue anti-coagulants please notify radiologist. No aspirin or warfarin (Coumadin) for 7 days prior to the procedure. No clopidogrel (Plavix), ticagrelor (Brilinta), prasugrel (Effient) or dabigatran (Pradaxa) for 5 days prior to the procedure. No rivaroxaban (Xarelto), apixaban (Eliquis), dipyridamole (Aggrenox or Persantine) or cilostazol (Pletal) for 2 days prior to the procedure. Medications to discontinue per physician: N/A Date to take last dose: Please leave all valuables, including medications, at home the day of procedure. The hospital will not accept responsibility for valuables. Wear comfortable, loose fitting clothing. Follow any additional instructions given to you from ordering provider. Telephone instructions given to _PATIENT_and asked if any additional questions and then verbalized understanding. Patient advised to call scheduling provider office or registration scheduling [phone] if any additional questions.
[2022-05-04] VITALS (10 sets, daily range): BP systolic 122–147; BP diastolic 65–92; PULSE 53–66; RESP 16–17; O2SAT 97–100
--- NOTE | ~2022-05-04 | US_ITS ---
EXAMINATION: US biopsy liver DATE: 05/04/2022 10:40 INDICATION: Abnormal liver function tests. TECHNIQUE: The procedure including the risks, benefits, and alternatives was discussed with the patie nt. Risks discussed included bleeding and infection. The patient understood the risks and agreed to p roceed. The skin overlying the liver was prepped and draped in usual sterile fashion. Anesthetic was administered with 1% lidocaine subcutaneously. An 18 gauge core biopsy needle was then used to obta in 3 core biopsy specimens under continuous sonographic guidance. The entry site was cleaned and dres sed. There were no immediate complications. FINDINGS: Ultrasound images demonstrate the needle in right hepatic lobe. IMPRESSION: 1. Ultrasound-guided random core needle biopsy of the liver. Reviewed, dictated and finalized at location A. 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
--- NOTE | 2022-05-04 12:34 | SUR.PHASEII ---
PATIENT DRINKING CLEAR LIQUIDS PER RADIOLOGIST.
== END 2022-05-04 14:19 | disposition home or self-care (01) ==
PROVIDERS: PCP Family Medicine; Referring Provider Radiology Diagnostic Radiology; Visit Provider Nurse Practitioner Family
PROC: BF45ZZZ Ultrasonography of Liver (ICD-10-PCS; CPT 47000; principal; 2022-05-04 09:30)
DX: R89.9 Unspecified abnormal finding in specimens from other organs, systems and tissues (principal)
CPT/HCPCS: 47000; 76942; 88307; 88312; 88313; 88342

== ENCOUNTER 2022-05-15 09:47 | Outpatient (CLI) | payer MEDICARE, SELFPAY | END 2022-05-15 09:48 | disposition home or self-care (01) | LOC: ANHLAB 09:49 | PROVIDERS: PCP Family Medicine; Visit Provider Nurse Practitioner | DX: E83.119 Hemochromatosis, unspecified (principal); R79.89 Other specified abnormal findings of blood chemistry | CPT/HCPCS: 36415; 81256 ==

== ENCOUNTER 2022-08-17 11:02 | Outpatient (CLI) | payer MEDICARE, SELFPAY ==
[2022-08-17 11:16] LABS: Basophils Percent Auto 0.6 % (0.2-1.2); Eosinophils Absolute Auto 0.1 K/mm3 (0-0.3); Eosinophils Percent Auto 2.1 % (0-4.4); Hematocrit 40.7 % (42.0-52.0); Hemoglobin 13.7 g/dL (14.0-18.0); Immature Granulocyte Absolute 0.01 K/mm3 (0.00-0.031); Immature Granulocyte Percent A 0.2 % (0-0.5); Lymphocytes Absolute Auto 1.11 K/mm3 (0.9-3.2); Lymphocytes Percent Auto 21.3 % (18.3-44.2); Mean Corpuscular HGB Conc 33.7 g/dl (32-36); Mean Corpuscular Hemoglobin 34.3 pg (26-34); Mean Corpuscular Volume 101.8 fl (80-100); Monocytes Absolute Auto 0.5 K/mm3 (0.1-0.6); Neutrophils Absolute Auto 3.4 K/mm3 (1.3-6.7); Neutrophils Percent Auto 65.8 % (45.5-73.1); Platelet Count Result 157 k/mm3 (150-375); Red Cell Distribution Width 12.9 % (11.5-14.5); White Blood Count 5.2 K/mm3 (4.5-10.0)
[2022-08-17 11:20] LABS: Blood Urea Nitrogen 21 mg/dL (8-26); Carbon Dioxide 27 mmol/L (22-30); Chloride 106 mmol/L (98-109); Estimated Glomerular Filt Rate > 60; Glucose 88 mg/dL (70-105); Potassium 4.9 mmol/L (3.5-4.9); Sodium 139 mmol/L (138-146)
[2022-08-17 12:30] LABS: Alanine Aminotransferase 46 U/L (6-50); Albumin Level 4.2 g/dL (3.5-5.1); Alkaline Phosphatase 80 U/L (38-126); Anion Gap 7 mmol/L (8-16); Aspartate Amino Transferase 47 U/L (17-59); Bilirubin,Total 0.9 mg/dL (0.2-1.3); Blood Urea Nitrogen 21 mg/dL (9-20); Calcium 8.9 mg/dL (8.4-10.2); Carbon Dioxide 25 mmol/L (22-30); Chloride 104 mmol/L (98-107); Estimated Glomerular Filt Rate > 60; Glucose 90 mg/dL (65-110); Potassium 4.9 mmol/L (3.4-5.0); Sodium 136 mmol/L (137-145)
[2022-08-17 13:42] LABS: Iron 100 ug/dL (49-181)
[2022-08-17 13:51] LABS: Percent Iron Saturation 30 % (20-50)
== END 2022-08-17 11:03 | disposition home or self-care (01) ==
LOC: ANHLAB 11:05
PROVIDERS: PCP Family Medicine; Visit Provider Internal Medicine Hematology & Oncology
DX: D53.9 Nutritional anemia, unspecified (principal)
CPT/HCPCS: 36415; 80047; 80053; 82607; 82728; 83540; 83550; 85025

== ENCOUNTER → 2022-10-22 08:59 | Outpatient (CLI) | payer MEDICARE, SELFPAY | PROVIDERS: PCP Family Medicine; Visit Provider Nurse Practitioner Family | DX: M25.562 Pain in left knee (principal) | CPT/HCPCS: 73562 ==

== ENCOUNTER 2023-01-08 08:50 | Outpatient (CLI) | payer MEDICARE, SELFPAY ==
--- NOTE | ~2023-01-08 | CT_ITS ---
EXAMINATION: CT knee LT wo con DATE: 01/08/2023 09:41 INDICATION: Left knee pain. TECHNIQUE: Computed tomography (CT) of the left knee was performed without intravenous contrast. Auto mated exposure control and iterative reconstruction technique were employed. The dose-length product was 528.69 mGy-cm. COMPARISON: Left knee radiograph 10/22/2022 FINDINGS: There is varus attenuation at the knee. No fracture. There are benign bone islands in later al femoral condyle. There is moderate osteoarthritis of medial compartment and mild osteoarthritis of lateral and patellofemoral compartments. No knee joint effusion. There is mild prepatellar and super ficial infrapatellar bursitis. IMPRESSION: 1. Moderate left knee osteoarthritis. Reviewed, dictated and finalized at location A.
== END 2023-01-08 08:51 | disposition home or self-care (01) ==
PROVIDERS: PCP Family Medicine; Visit Provider Nurse Practitioner Family
DX: M25.562 Pain in left knee (principal); Z87.828 Personal history of other (healed) physical injury and trauma; M17.12 Unilateral primary osteoarthritis, left knee
CPT/HCPCS: 73700

== ENCOUNTER 2023-01-22 10:38 | Outpatient (CLI) | payer MEDICARE, SELFPAY ==
[2023-01-22 11:27] LABS: Basophils Percent Auto 0.4 % (0.2-1.2); Eosinophils Absolute Auto 0.1 K/mm3 (0-0.3); Eosinophils Percent Auto 2.9 % (0-4.4); Hematocrit 38.6 % (42.0-52.0); Immature Granulocyte Absolute 0.01 K/mm3 (0.00-0.031); Immature Granulocyte Percent A 0.2 % (0-0.5); Lymphocytes Percent Auto 14.6 % (18.3-44.2); Mean Corpuscular HGB Conc 33.7 g/dl (32-36); Mean Corpuscular Hemoglobin 35.5 pg (26-34); Mean Corpuscular Volume 105.5 fl (80-100); Mean Platelet Volume 10.2 fl (7.4-10.4); Monocytes Absolute Auto 0.5 K/mm3 (0.1-0.6); Neutrophils Absolute Auto 3.4 K/mm3 (1.3-6.7); Neutrophils Percent Auto 70.9 % (45.5-73.1); Platelet Count Result 155 k/mm3 (150-375); Red Blood Count 3.66 M/mm3 (4.6-6.20); Red Cell Distribution Width 13.5 % (11.5-14.5); White Blood Count 4.8 K/mm3 (4.5-10.0)
[2023-01-22 11:36] LABS: Iron 85 ug/dL (49-181)
[2023-01-22 11:41] LABS: Alanine Aminotransferase 37 U/L (6-50); Albumin Level 4.2 g/dL (3.5-5.1); Alkaline Phosphatase 73 U/L (38-126); Anion Gap 7 mmol/L (8-16); Aspartate Amino Transferase 43 U/L (17-59); Bilirubin,Total 1.2 mg/dL (0.2-1.3); Blood Urea Nitrogen 21 mg/dL (9-20); Calcium 9.2 mg/dL (8.4-10.2); Carbon Dioxide 26 mmol/L (22-30); Chloride 106 mmol/L (98-107); Estimated Glomerular Filt Rate > 60; Glucose 99 mg/dL (65-110); Potassium 4.3 mmol/L (3.4-5.0); Sodium 139 mmol/L (137-145)
[2023-01-22 11:47] LABS: Percent Iron Saturation 25 % (20-50)
[2023-01-22 11:53] LABS: Anisocytosis 1+ (NORMAL); Platelet Estimate Adequate (Adequate); Schistocytes None Seen (NORMAL)
[2023-01-22 12:47] LABS: Folic Acid > 20.0 ng/mL (2.76->20)
== END 2023-01-22 10:39 | disposition home or self-care (01) ==
LOC: ANHLAB 10:41
PROVIDERS: PCP Family Medicine; Visit Provider Internal Medicine Hematology & Oncology
DX: E83.110 Hereditary hemochromatosis (principal)
CPT/HCPCS: 36415; 80053; 82607; 82728; 82746; 83540; 83550; 85025

== ENCOUNTER 2023-01-28 10:27 | Outpatient (CLI) | payer MEDICARE, SELFPAY ==
[2023-01-28 11:43] LABS: Cholesterol 82 mg/dL (0-200); HDL Direct 23 mg/dL; Triglycerides 93 mg/dL (<150)
[2023-01-28 11:53] LABS: LDL Cholesterol Direct 41 mg/dL
[2023-01-28 16:37] LABS: Prostate Specific Antigen 0.4 ng/mL (< OR = 4.0)
== END 2023-01-28 10:28 | disposition home or self-care (01) ==
PROVIDERS: Nurse Practitioner Family; PCP Family Medicine; Visit Provider Internal Medicine Hematology & Oncology
DX: E66.3 Overweight (principal); E78.5 Hyperlipidemia, unspecified; G47.33 Obstructive sleep apnea (adult) (pediatric); Z12.5 Encounter for screening for malignant neoplasm of prostate
CPT/HCPCS: 36415; 80061; 84153; G0103

== ENCOUNTER 2023-11-04 06:42 | Outpatient (CLI) | payer MEDICARE, SELFPAY ==
--- NOTE | ~2023-11-04 | CT_ITS ---
EXAMINATION: CT brain wo/w con DATE: 11/04/2023 07:15 INDICATION: Amnesia. TECHNIQUE: Computed tomography (CT) of the abdomen and pelvis was performed without and with 100 cc O mnipaque 350 intravenous contrast. The dose-length product was 1210.67 mGy-cm. Automated exposure con trol and iterative reconstruction technique were employed. COMPARISON: None. FINDINGS: Generalized atrophy, within normal limits for age. Chronic right lacunar infarction. There are scattered mild periventricular and subcortical white matter changes, most likely related to small vessel ischemic disease (microangiopathy). No ventriculomegaly or midline shift. There is intracrani al atherosclerosis. Basilar cisterns are patent. No acute infarction, hemorrhage, mass or mass effect . Paranasal sinuses and mastoids are pneumatized. No abnormal contrast enhancement. IMPRESSION: 1. No acute intracranial abnormality. 2: Chronic right lacunar infarction. Reviewed, dictated and finalized at location B.
[2023-11-04 07:09] LABS: Estimated Glomerular Filt Rate 54
== END 2023-11-04 06:43 | disposition home or self-care (01) ==
PROVIDERS: PCP Family Medicine; Visit Provider Nurse Practitioner Family
DX: R41.3 Other amnesia (principal); R68.89 Other general symptoms and signs
CPT/HCPCS: 70470; Q9967

== ENCOUNTER 2023-12-13 09:40 | Outpatient (CLI) | payer MEDICARE, SELFPAY ==
[2023-12-13 11:19] LABS: Hemoglobin A1C 6.1 % (<5.7)
[2023-12-13 12:38] LABS: LDL Cholesterol Direct 34 mg/dL
== END 2023-12-13 09:41 | disposition home or self-care (01) ==
LOC: ANHLAB 09:43
PROVIDERS: PCP Family Medicine; Visit Provider Student in an Organized Health Care Education/Training Program
DX: I63.9 Cerebral infarction, unspecified (principal); Z86.73 Personal history of transient ischemic attack (TIA), and cerebral infarction without residual deficits; R79.89 Other specified abnormal findings of blood chemistry; E78.5 Hyperlipidemia, unspecified
CPT/HCPCS: 36415; 83036; 83721; 84443

== ENCOUNTER 2023-12-24 08:26 | Outpatient (CLI) | payer MEDICARE, SELFPAY ==
--- NOTE | ~2023-12-24 | CT_ITS ---
CT ANGIOGRAM NECK AND HEAD History: Cerebral infarction. Technique: Axial noncontrast imaging of brain was performed. Serial spiral axial images through the h ead and neck were then obtained during arterial phase IV injection of 100 cc of Omnipaque 350. 3-D po stprocessing and MIP images were then reconstructed on the remote workstation. Dose reduction techniq ue was used on this scan by utilizing automated exposure control and iterative reconstruction techniq ue. The dose-length product (DLP) was 1855.37 mGy-cm. CTA neck findings: Bilateral vertebral arteries are patent, though the left vertebral artery is diff usely hypoplastic. Bilateral common carotid, internal carotid, and external carotid arteries are pool nt. No large vessel occlusion. There is calcified plaque at the proximal left internal carotid artery with 60% stenosis. No right internal carotid artery stenosis. No aneurysm seen. The proximal right i nternal carotid artery demonstrates 0% stenosis relative to the normal distal artery lumen diameter. The proximal left internal carotid artery demonstrates 60% stenosis relative to the normal distal art sarah lumen diameter. CTA head findings: Distal vertebral arteries, basilar artery, and posterior cerebral arteries are pat ent. Distal internal carotid arteries, middle cerebral arteries, and anterior cerebral arteries are p atent. No large vessel occlusion or stenosis. No aneurysm. Axial noncontrast imaging of the brain demonstrates no acute infarct, intracranial hemorrhage, or mas s lesion. Stable chronic lacunar infarct noted in the right basal ganglia region. There are mild asphalt tar and gravel roofer jenny hyperdensities in the periventricular white matter, suggestive of chronic microischemia change. N o mass effect or midline shift. Ventricles and subarachnoid spaces are minimally prominent. Paranasal sinuses and mastoid air cells are clear. Calvarium intact. Impression: 60% stenosis at the proximal left internal carotid artery. Reviewed, dictated and finalized at location M. Impression: 60% stenosis at the proximal left internal carotid artery.
[2023-12-24 08:42] LABS: Estimated Glomerular Filt Rate 49
== END 2023-12-24 08:27 | disposition home or self-care (01) ==
PROVIDERS: PCP Family Medicine; Visit Provider Student in an Organized Health Care Education/Training Program
DX: I65.22 Occlusion and stenosis of left carotid artery (principal); I63.9 Cerebral infarction, unspecified; Z86.73 Personal history of transient ischemic attack (TIA), and cerebral infarction without residual deficits
CPT/HCPCS: 70496; 70498; Q9967

== ENCOUNTER 2024-01-04 08:35 | Outpatient (CLI) | payer MEDICARE, SELFPAY ==
--- NOTE | 2024-01-04 08:40 | ECHO_ITS ---
Patient Info Name: Yehuda Palm Age: 78 years : 1945 Gender: Male Ht: 72 in Wt: 206 lbs BSA: 2.20 m2 HR: 59 bpm BP: 142 / 81 mmHg Heart Rhythm: Sinus Rhythm Technical Quality: Good Exam Date: 01/04/2024 9:17 AM Exam Location: Echo Lab Patient Status: Outpatient Admit Date: 01/04/2024 Staff Ordering Physician: Alisson Wooten MD Cremator: Areli Vasquez RDCS Attending Provider: Alisson Wooten MD Exam Type: CA echo doppler w bubble study Study Info Indications - TIA Complete two-dimensional, color flow and Doppler transthoracic echocardiogram is performed with agitated saline. Contrast/Agitated Saline Contrast/Ag. Saline: Agitated Saline Amount: 20.00 ml New IV Access: Left Site Condition: IV removed Summary 1. Left ventricular chamber dimension is normal. 2. Left ventricular systolic function is normal, estimated at 55-60%. 3. The left ventricular diastolic function is grade I diastolic dysfunction. 4. Right ventricular systolic function is normal. 5. Left atrial chamber dimension is mildly enlarged. 6. Intact interatrial septum visualized by color flow imaging. Negative bubble study. 7. There is moderate aortic valve calcification. 8. There is mild aortic valve stenosis. 9. There is mild mitral valve regurgitation. 10. There is mild tricuspid valve regurgitation. Left Ventricle Left ventricular chamber dimension is normal. Left ventricular systolic function is normal, estimated at 55-60%. There is no increased left ventricular wall thickness. The left ventricular diastolic function is grade I diastolic dysfunction. Right Ventricle Linear artifact in right ventricle suggestive of catheter(s), pacemaker lead(s), or ICD lead(s). Right ventricular chamber dimension is normal. Right ventricular systolic function is normal. Left Atria Left atrial chamber dimension is mildly enlarged. Right Atria Linear artifact in the right atrium suggestive of catheter(s), pacemaker lead(s), or ICD lead(s). Right atrial chamber dimension is normal. Atrial Septum Intact interatrial septum visualized by color flow imaging. Negative bubble study. Aortic Valve The aortic valve is not well visualized. There is mild aortic valve stenosis. There is no aortic valve regurgitation. There is moderate aortic valve calcification. Pulmonic Valve The pulmonic valve is not well visualized. Mitral Valve There is mild mitral valve regurgitation. The mitral valve annulus is mildly calcified. Tricuspid Valve There is mild tricuspid valve regurgitation. Pericardium/Pleural The pericardium appears epicardial fat pad. There is no pericardial effusion. Inferior Vena Cava Normal inferior vena cava with <50% collapse upon inspiration consistent with elevated right atrial pressure, 8 mmHg. Aorta The aortic root size at the sinus of Valsalva is normal. Left Ventricular Outflow Tract Name Value Normal LVOT 2D LVOT Diameter 2.2 cm LVOT Doppler LVOT Peak Gradient 2 mmHg LVOT Mean Gradient 1 mmHg LVOT VTI 18 cm LVOT VTI/AV VTI Ratio
== END 2024-01-04 08:36 | disposition home or self-care (01) ==
LOC: ANHCARD 08:35
PROVIDERS: PCP Family Medicine; Visit Provider Student in an Organized Health Care Education/Training Program
DX: Z86.73 Personal history of transient ischemic attack (TIA), and cerebral infarction without residual deficits (principal); I34.0 Nonrheumatic mitral (valve) insufficiency; I35.1 Nonrheumatic aortic (valve) insufficiency; I36.1 Nonrheumatic tricuspid (valve) insufficiency
CPT/HCPCS: 93306; 96375

== ENCOUNTER 2024-01-31 14:35 | Outpatient (CLI) | payer MEDICARE, SELFPAY ==
[2024-01-31 14:56] LABS: Basophils Percent Auto 0.6 % (0.2-1.2); Eosinophils Absolute Auto 0.1 K/mm3 (0-0.3); Eosinophils Percent Auto 2.6 % (0-4.4); Hematocrit 40.5 % (42.0-52.0); Hemoglobin 13.4 g/dL (14.0-18.0); Immature Granulocyte Absolute 0.01 K/mm3 (0.00-0.031); Immature Granulocyte Percent A 0.2 % (0-0.5); Lymphocytes Absolute Auto 0.86 K/mm3 (0.9-3.2); Lymphocytes Percent Auto 16.1 % (18.3-44.2); Mean Corpuscular HGB Conc 33.1 g/dl (32-36); Mean Corpuscular Hemoglobin 34.2 pg (26-34); Mean Corpuscular Volume 103.3 fl (80-100); Mean Platelet Volume 10.7 fl (7.4-10.4); Monocytes Absolute Auto 0.4 K/mm3 (0.1-0.6); Monocytes Percent Auto 8.3 % (2.6-8.5); Neutrophils Absolute Auto 3.9 K/mm3 (1.3-6.7); Neutrophils Percent Auto 72.2 % (45.5-73.1); Platelet Count Result 153 k/mm3 (150-375); Red Blood Count 3.92 M/mm3 (4.6-6.20); Red Cell Distribution Width 13.5 % (11.5-14.5); White Blood Count 5.3 K/mm3 (4.5-10.0)
[2024-01-31 16:33] LABS: Iron 92 ug/dL (49-181)
[2024-01-31 16:45] LABS: Percent Iron Saturation 28 % (20-50)
[2024-01-31 17:29] LABS: Alanine Aminotransferase 64 U/L (6-50); Albumin Level 4.2 g/dL (3.5-5.1); Alkaline Phosphatase 82 U/L (38-126); Anion Gap 12 mmol/L (4-12); Aspartate Amino Transferase 57 U/L (17-59); Bilirubin,Total 0.9 mg/dL (0.2-1.3); Blood Urea Nitrogen 25 mg/dL (9-20); Calcium 9.1 mg/dL (8.4-10.2); Carbon Dioxide 22 mmol/L (22-30); Chloride 103 mmol/L (98-107); Estimated Glomerular Filt Rate > 60; Glucose 112 mg/dL (65-110); Potassium 4.2 mmol/L (3.4-5.0); Sodium 137 mmol/L (137-145)
[2024-01-31 18:36] LABS: Folic Acid 15.1 ng/mL (2.76->20); Vitamin B12 > 1000.0 pg/mL (239-931)
== END 2024-01-31 14:36 | disposition home or self-care (01) ==
PROVIDERS: PCP Family Medicine; Visit Provider Internal Medicine Hematology & Oncology
DX: D53.9 Nutritional anemia, unspecified (principal)
CPT/HCPCS: 36415; 80053; 82607; 82728; 82746; 83540; 83550; 85025

== ENCOUNTER 2024-07-10 08:51 | Outpatient (CLI) | payer MEDICARE, SELFPAY ==
--- OUTSIDE RECORDS SUMMARY | 2024-07-10 09:26 | XMS_ITS | Clinical Summary ---
Author Organization [facility] C Address [address] [facility] [place] [address] Care Team Providers Care Tile Molder Name Role Phone Hermilo Jacobsen MD Primary Care Provider Allergies Active Allergy Reactions Criticality Noted Date Comments Nitroglycerin Headache Low 05/30/2023 Rec'd TNG LS for CTA coronary arteries 04/2023. Developed MAIN, lightheadedness, pain up and down his back, some shortness of breath and possible some hypoxemia. Seen in the ER, Improved rapidly, discharged. Medications multivitamin-mi nerals-lutein (CENTRUM SILVER) tablet take 1 tablet by oral route every day 0 12/30/2010 Active allopurinol (ZYLOPRIM) 300 mg tablet take 1 tablet by oral route every day 0 0 10/31/2014 Active meloxicam (MOBIC) 15 mg tablet take 1 tablet by oral route every day 0 0 02/05/2015 Active Lactobac no.41-Bifidobac t no.7 70 mg (3 billion cell) capsule Take 1 capsule by mouth daily. Active aspirin 81 mg enteric coated tablet Take 1 tablet (81 mg total) by mouth daily 05/19/2023 Active metoprolol tartrate (LOPRESSOR) 25 mg immediate release tablet TAKE 1 TABLET BY MOUTH TWICE A DAY 180 tablet 2 08/09/2023 Active sotaloL (BETAPACE) 120 mg tablet TAKE 1 TABLET BY MOUTH TWICE A DAY 180 tablet 3 11/15/2023 Active escitalopram (LEXAPRO) 10 mg tablet Take 1 tablet (10 mg total) by mouth daily 04/11/2024 Active rosuvastatin (CRESTOR) 40 mg tablet TAKE 1 TABLET BY MOUTH EVERY DAY 90 tablet 3 05/11/2024 Active losartan (COZAAR) 50 mg tablet TAKE 1 TABLET BY MOUTH EVERY DAY 90 tablet 3 05/11/2024 Active Active Problems Problem Noted Date Diagnosed Date Nonobstructive atherosclerosis of coronary arter y 10/15/2023 HANDY (dyspnea on exertion) 04/13/2023 Pacemaker lead failure, subsequent encounter Hypercholesteremia 09/10/2020 Hyperkalemia 03/05/2020 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 LV lead non-functional and programmed off. Pt has uncorrected LBBB, however LVEF has remained stable and no HF symptoms. Recommend observation for now with serial echocardiography. If LVEF declines or pt develops HF symptoms, LV lead revision recommended. Otherwise would perform at time of next generator replacement. --Continue remote device f/u --Repeat TTE in 1 year Assessment & Plan (06/23/2023 11:42 AM STRAIN TECHNICIAN): S/p BATTERY CHECKER-D system with LV lead fracture. LV function remains generally preserved. He has mild HF symptoms but is quite functional, with no significant recent decline. We discussed indications for device revision with new LV lead. Given clinical stability, favor waiting and reassessing LV function. If there is decline, we would plan to revise his device. --Continue remote device f/u via Stupil --TTE as scheduled in September --F/u with me in October as scheduled Assessment & Plan (11/04/2022 11:23 AM CDT): S/p BATTERY CHECKER-D system implantation. LV lead fracture, now programmed off. Otherwise good device function. LVEF 60% by recent echo. NYHA class 2 HF. Given clinical stability and normal LV function, will avoid lead revision for now. Would consider if pt deteriorates or LV function declines. Would also consider at time of next generator replacement. --Continue remote device f/u quarterly --Call if worsening symptoms Macrocytosis without anemia 09/15/2017 Obstructive sleep apnea syndrome 03/09/2017 Presence of biventricular au tomatic cardioverter/defibrillator (AICD) 11/25/2016 Overview (06/26/2019): [employer] Unify Assura BI-V ICD implanted on 02/14/19 for NICM/CHF/LBBB. [facility]. Chronic RA/RV/LV leads are from 02/12/11. VT (ventricular tachycardia) 11/25/2016 Assessment & Plan (10/20/2023 12:51 PM CDT): Stable, no recurrence. Tolerating sotalol. --Continue sotalol 120 mg BID Assessment & Plan (06/23/2023 11:42 AM STRAIN TECHNICIAN): Stable/no events. --Continue sotalol 120 mg BID Assessment & Plan (11/04/2022 11:21 AM CDT): Stable. Well controlled on sotalol. Qtc acceptable on ECG today. --Continue sotalol 120 mg BID Medication monitoring encounter 11/25/2016 Assessment & Plan (11/25/2016 11:53 AM CDT): Satisfactory EKG intervals on sotalol Left bundle branch block (LBBB) 07/17/2014 Overview (08/21/2016): Left bundle branch block Assessment & Plan (11/25/2016 11:49 AM CDT): Status post BATTERY CHECKER. Resolved Problems Problem Noted Date Diagnosed Date Resolved Date Aortic valve disorder 09/25/20212022 Pacemaker 09/15/2017 07/05/2018 Drug therapy finding 06/09/2016 017 Overview (08/21/2016): Encounter for therapeutic drug monitoring Congestive cardiomyopathy 08/19/2015 Overview (08/21/2016): Dilated cardiomyopathy Assessment & Plan (11/25/2016 11:48 AM CDT): Resolved. Normal LV function Presence of implantable cardioverter-defibrillator (ICD) 02/05/2015 017 Overview (08/21/2016): Biventricular ICD (implantable cardioverter-defibrillator) in place Assessment & Plan (11/25/2016 11:52 AM CDT): Satisfactory function. The device is subject to advisory, and the patient was educated on vibratory alerts which had been programmed on. An atrial lead abnormality, previously suspected to be a conductor coil fracture had been observed in the past. Abnormality is longer seen and lead status is stable. There is no need to revise. The patient has noted some mild movement of the device but on exam today it is not migrated excessively. At the time of elective generator replacement revision of the pocket can be performed. I do not recommend revision at this time Primary cardiomyopathy 07/17/201403/05 Overview (08/21/2016): Primary cardiomyopathy Ventricular tachycardia 05/24/201202/15 Overview (08/20/2016): VT (ventricular tachycardia) Assessment & Plan (11/25/2016 12:01 PM CDT): Doing well on sotalol. No further shocks. ATP has been successful. 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 Encounters Date Type Department Care Team Description 07/07/2024 10:05 AM STRAIN TECHNICIAN - 07/07/2024 11:59 PM STRAIN TECHNICIAN Hospital Encounter [facility] [address] [place] [address] Encounter for screening for osteoporosis Discharge Disposition: Discharge to home or self care 05/08/2024 Orders Only [facility] [address] [place] [address] [place] [phone] Cyndi Dougherty MD Left bundle branch block (LBBB) (Primary Dx); NICM (nonischemic cardiomyopathy) (CMS/HCC) ([facility]); 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); Congestive heart failure, unspecified HF chronicity, unspecified heart failure type (HCC) 04/26/2024 Telephone [facility] [address] [place] [address] [place] [phone] Lidia Gonzales NP 04/25/2024 9:45 AM STRAIN TECHNICIAN Ancillary Procedure [facility] [address] [place] [address] [place] [phone] 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) (Primary Dx); NICM (nonischemic cardiomyopathy) (CMS/HCC) (HCC); Left bundle branch block (LBBB); VT (ventricular tachycardia) ([facility]) 04/17/2024 9:30 AM STRAIN TECHNICIAN Office Visit [facility] [address] [place] [address] [place] [phone] Lidia Gonzales NP NICM (nonischemic cardiomyopathy) (CMS/HCC) ([facility]); Left bundle branch block (LBBB); ICD (implantable cardioverter-defibrill ator) in place; Nonobstructive atherosclerosis of coronary artery; Lipid screening; Low blood pressure reading; Ventricular tachycardia ([facility]); Medication monitoring encounter from Last 3 Months Immunizations Immunization Administration Dates Next Due Influenza, Quadrivalent, Hig h Dose, Preservative Free, Intrr 02/05/2020 Influenza, Trivalent, High D ose, Split, Preservative Free, Intramuscular 03/30/2019,02/05/2018,02/04/2018 Influenza, Unspecified 02/23/2022 Pneumococcal Conjugate PCV 13 10/18/2018 Tdap 10/18/2018 ZOSTER Recombinant 02/21/2020,04/14/2019 Surgical History Surgery Date Site/Laterality Comments KNEE SURGERY 05/17/1996 - 05/16/1997 Left Knee Surgery KNEE SURGERY 05/17/2010 - 05/16/2011 Right Knee Surgery - torn meniscus TONSILLECTOMY 05/17/1949 - 05/16/1950 Tonsillectomy CARDIAC DEFIBRILLATOR PLACEMENT CATARACT EXTRACTION 09/09/2020 Left Medical History Medical History Date Comments Gout Gout Peptic ulcer Peptic Ulcer Dis ease Rheumatoid arthritis (HCC) 1977 Rheum atoid arthritis Ventricular tachycardia (HCC) Sleep apnea Sleep Apnea, CPA P Cardiomyopathy (HCC) 2010 Cardiomyopa thy Family History Medical History Relation Name Comments Arrhythmia Mother 2 Arrhythmias; Other Mother 2 Pacemaker; Caus e of : Pacemaker Relation Name Status Comments Mother 1 (Age 83) Mother 2 Social History Tobacco Use Types Packs/Day Years Used Date Smoking Tobacco: Former Smokeless Tobacco: Never Tobacco Cessation:Counseling Given: Not Answered Alcohol Use Standard Drinks/Week Comments Not Currently 0 (1 standard drink = 0.6 oz pur e alcohol) quit 2010 Personal Safety Answer Date Recorded Have you ever been in or are you currently in a harmful physical or emotional relationship or is someone making you feel afraid or unsafe? Denies 05/14/2023 Sex and Gender Information Value Date Recorded Sex Assigned at Not on file Legal Sex Male 2:25 PM STRAIN TECHNICIAN Gender Identity Not on file Sexual Orientation Not on file Obstetrics History Last Filed Vital Signs Vital Sign Reading Time Taken Comments Blood Pressure 90/54 04/17/2024 9:30 AM STRAIN TECHNICIAN Pulse 53 04/17/2024 9:30 AM STRAIN TECHNICIAN Temperature 37 C (98.6 F) 05/14/2023 1:48 PM STRAIN TECHNICIAN Respiratory Rate 18 05/14/2023 5:30 PM STRAIN TECHNICIAN Oxygen Saturation 96% 04/17/2024 9:30 AM STRAIN TECHNICIAN Inhaled Oxygen Concentration - - Weight 87.1 kg (192 lb) 04/17/2024 9:30 AM STRAIN TECHNICIAN Height 182.9 cm (6') 04/17/2024 9:30 AM STRAIN TECHNICIAN Body Mass Index 26.04 04/17/2024 9:30 AM STRAIN TECHNICIAN Plan of Treatment Health Maintenance Due Date Last Done Comments Depression Screening 1945 Fall Risk Assessment 1945 Hepatitis C Screening 1945 Hepatitis B Screening 08/30/1965 Abdominal Aortic Aneurysm (A AA) Screen 08/30/2012 Well Visit 65+ 08/30/2012 Pneumococcal vaccine 65+ (2 of 2 - PPSV23) 10/19/2019 10/18/2018 Covid-19 Vaccine (3 - 2023-2 5 season) 2024 07/26/2020, 06/28/2020 DTaP/Tdap/Td Vaccine (2 - Td or Tdap) 10/18/2028 10/18/2018 Zoster Vaccine Completed 02/21/2020, 04/14/2019 Influenza Vaccine Completed 02/09/2024, , 02/05/2020, Additional history exists Medical Devices Implanted Type Area Nurse Tech Device Identifier Shelf Expiration Date Model / Serial / Lot Icd ICD Chest [employer] [id number] Unify Assura Rf Telemetry Df4-[facility] Is-1 Connector [id number] - [id number] - [id number] Implanted:Qty: 1 on 02/14/2019 by Lexa Tapia MD at [facility] ICD [employer] [id number] 04/15/2020 [id number] / [id number] / Procedures Procedure Name Priority Date/Time Associated Diagnosis Comments DEXA AXIAL SKELETON BONE DENSITY 1 OR MORE SITES Schedule Routine, Read Routine (OP Routine) 07/07/2024 10:23 AM STRAIN TECHNICIAN Encounter for screening for osteoporosis DEVICE CHECK - REMOTE Routine 05/08/2024 4:22 PM STRAIN TECHNICIAN NICM (nonischemic cardiomyopathy) (CMS/HCC) (HCC) Left bundle branch block (LBBB) VT (ventricular tachycardia) (HCC) POCT LIPID PANEL Routine 04/17/2024 9:34 AM STRAIN TECHNICIAN Lipid screening ECG 12-LEAD Routine 04/17/2024 Medication monitoring encounter from Last 3 Months Results * Dexa Axial Skeleton Bone Density 1 or 2 Site (07/07/2024 10:23 AM STRAIN TECHNICIAN) Anatomical Region Laterality Modality Body N/A Mammography 07/08/2024 11:0 1 AM STRAIN TECHNICIAN Narrative 07/08/2024 11:02 AM STRAIN TECHNICIAN EXAM DESCRIPTION: DEXA AXIAL SKELETON BONE DENSITY 1 OR MORE SITES REASON FOR STUDY: 78 y/o year old M with given history of: History of rheumatoid arthritis. Nurse Tech/Model: Hologic [employer] A (S/N [id number]) Facility LSC value of 0.022 for the AP spine, 0.027 for the femur, and 0.023 for the forearm. CLINICAL INFORMATION: Current height: 70 inches Maximum height: 72 inches Weight: 192 pounds Risk factors: Rheumatoid arthritis COMPARISON: None available FINDINGS: AP LUMBAR SPINE L1-L4: Total BMD is 0.912 g/cm2 T-score is -1.6 LEFT HIP: Total BMD is 0.835 g/cm2 T-score is -1.3 Femoral neck BMD is 0.664 g/cm2 T-score is -2.0 FRAX: 10 year risk for a major osteoporotic fracture is 11 %, 10 year risk for a hip fracture is 4.3 % IMPRESSION: Low bone mass REFERENCE: Bone mineral density: T-Score: Normal (T-score above or = -1.0) Low bone mass (T-score between -1.0 and -2.5) replaces the previously used term osteopenia Osteoporosis (T-score = or below -2.5) Z-Score: Within the expected range for age (Z-score above -2.0) Below the expected range for age (Z-score is -2.0 or below) Please see below follow up recommendations. Medical evaluation for secondary causes of low bone mineral density may be appropriate. FRAX is a World Health Organization validated fracture risk assessment tool that calculates a person's 10 year probability of a major osteoporosis related fracture and hip fracture. According to the National Osteoporosis Foundation guidelines, postmenopausal women and men age 50 or older with low bone mass and a 10 year probability of a major osteoporosis related fracture = or greater than 20% or a 10 year probability of a hip fracture = or greater than 3% should be considered for pharmacological treatment for the prevention of osteoporosis. For further information, including treatment recommendations, please refer to the 2019 ISCD Official Positions (http://www.iscd.org) and the NOF's Clinician's Guide to Prevention and Treatment of Osteoporosis (http://www.nof.org/professionals/clinical-guidelines) THIS IS AN ELECTRONICALLY VERIFIED FINAL REPORT 07/08/2024 11:02 AM - Electronically signed by Natividad Samuel M.D. TW: TW Report ID: [id number] Reading Location: [id number] Procedure Note Natividad Samuel MD - 07/08/2024 EXAM DESCRIPTION: DEXA AXIAL SKELETON BONE DENSITY 1 OR MORE SITES REASON FOR STUDY: 78 y/o year old M with given history of: History of rheumatoid arthritis. Nurse Tech/Model: Pro[employer]imal Data A (S/N [id number]) Facility LSC value of 0.022 for the AP spine, 0.027 for the femur, and0.023 for the forearm. CLINICAL INFORMATION: Current height: 70 inches Maximum height: 72 inches Weight: 192 pounds Risk factors: Rheumatoid arthritis COMPARISON: None available FINDINGS: AP LUMBAR SPINE L1-L4: Total BMD is 0.912 g/cm2 T-score is -1.6 LEFT HIP: Total BMD is 0.835 g/cm2 T-score is -1.3 Femoral neck BMD is 0.664 g/cm2 T-score is -2.0 FRAX: 10 year risk for a major osteoporotic fracture is 11 %, 10 year risk for ahip fracture is 4.3 % IMPRESSION: Low bone mass REFERENCE: Bone mineral density: T-Score: Normal (T-score above or = -1.0) Low bone mass (T-score between -1.0 and -2.5) replaces thepreviously used term osteopenia Osteoporosis (T-score = or below -2.5) Z-Score: Within the expected range for age (Z-score above -2.0) Below the expected range for age (Z-score is -2.0 or below) Please see below follow up recommendations. Medical evaluation forsecondary causes of low bone mineral density may be appropriate. FRAX is a World Health Organization validated fracture risk assessmenttool that calculates a person's 10 year probability of a major osteoporosisrelated fracture and hip fracture. According to the National OsteoporosisFoundation guidelines, postmenopausal women and men age 50 or older with low bonemass and a 10 year probability of a major osteoporosis related fracture = or greater than 20% or a 10 year probability of a hip fracture = or greaterthan 3% should be considered for pharmacological treatment for the preventionof osteoporosis. For further information, including treatment recommendations, please referto the 2019 ISCD Official Positions (http://www.iscd.org) and the NOF's Clinician's Guide to Prevention and Treatment of Osteoporosis (http://www.nof.org/professionals/clinical-guidelines) THIS IS AN ELECTRONICALLY VERIFIED FINAL REPORT 07/08/2024 11:02 AM - Electronically signed by Natividad Samuel M.D. TW: TW Report ID: [id number] Reading Location: [place] [address] Tavo Del Angel NP IMG DXA PROCEDURES Final Re sult * DEVICE CHECK - REMOTE (05/08/2024 4:22 PM STRAIN TECHNICIAN) Anatomical Region Laterality Modality Other Narrative 06/08/2024 12:54 PM STRAIN TECHNICIAN [employer] Unify Assura BI-V ICD implanted on 02/14/19 for NICM/CHF/LBBB. [facility]. Chronic RA/RV/LV leads are from 02/12/11. Routine DDDR ICD Remote. Transmission attached. Battery status 37%, 2.7-3.5 years remaining battery life to LEROY. Stable Charge time and Shock impedance. Stable lead impedances, pacing, and sensing threshold. Presenting rhythm: -AP/V sensed AP-4.4 %, PACKING LINE WORKER-< 1 % (0) AT/AF episodes noted. (0) Ventricular tachy arrhythmias detected. Medication: ASA 81 mg, metoprolol 25 mg, sotalol 120 mg, losartan 50 mg Follow up: office device pacemaker/ICD 10/25/24 at [facility] remote 08/01/24 Olvin Smith RN Jennifer Engle MD [facility] PROCEDU RES Final Result * POCT lipid panel (04/17/2024 9:34 AM STRAIN TECHNICIAN) Cholesterol, POC 100 mg/dL HDL, POC 31 mg/dL Triglycerides, POC 48 mg/dL LDL Cholesterol POC 55 mg/dL Chol/HDL Ratio, POC - Non-HDL Cholesterol, POC - mg/dL Cholesterol Total, POC 100 mg/dL Capillary blood 04/17/2024 9 :34 AM STRAIN TECHNICIAN Lidia Gonzales NP POINT OF CARE TEST ORDERA BLES Final Result * ECG 12 lead (04/17/2024) 04/17/2024 Lidia Gonzales NP ECG ORDERABLES Edited Re sult - Final from Last 3 Months Insurance MEDICARE [facility] MEDICARE BLUE CROSS MEDICARE SUPPLEMENT MEDICARE [facility] Care Teams Tile Molder Relationship Specialty Start Date End Date Hermilo Jacobsen MD PCP - General 08/14/16
--- OUTSIDE RECORDS SUMMARY | 2024-07-10 09:26 | XMS_ITS | Clinical Summary ---
Author Organization [facility] Address [address] [place] [id number] Care Team Providers Care Slp Teacher Name Role Phone Unavailable Primary Care Provider Unavailabl e Immunizations Name Administration Dates Next Due MODERNA COVID-19 (12+) MRNA, LNP-S, PF, 100 MCG/ 0.5 ML DOSE 07/26/2020,06/28/2020 Social History Tobacco Use Types Packs/Day Years Used Date Smoking Tobacco: Never Assessed Sex and Gender Information Value Date Recorded Sex Assigned at Not on file Legal Sex Male 7:53 PM CDT Gender Identity Not on file Sexual Orientation Not on file Plan of Treatment Health Maintenance Due Date Last Done Comments Hepatitis C 08/30/1963 DTaP, Tdap and Td Vaccines ( 1 - Tdap) 08/30/1966 Pneumococcal Vaccine: 65+ Years (2 of 2 - PPSV23 or PCV20) 10/19/2019 10/18/2018 RSV Immunization or 60+ Years (1 - 1-dose 75+ series) 08/30/2022 COVID-19 Vaccine (3 - 2023-2 5 season) 2024 07/26/2020, 06/28/2020 Influenza Adult (#1) 2024 02/05/2020 Zoster Vaccines Completed 02/21/2020, 04/14/2019 Meningococcal B Vaccine Aged Out No l onger eligible based on patient's age to complete this topic Meningococcal Vaccine Aged Out No maria t claudette eligible based on patient's age to complete this topic RSV Immunizations Under 20 Months Aged Out No longer eligible b ased on patient's age to complete this topic Medical Devices Implanted Type Area Rig Operator Device Identifier Shelf Expiration Date Model / Serial / Lot Ra Lead Implant-2010 Implanted: (Quantity not on file) Lead Implant [employer] [id number] / [id number] / Rv Lead Implant-2010 Implanted: (Quantity not on file) Lead Implant [facility] [employer] [id number] / [id number] / Lv Lead- 1 Implanted: (Quantity not on file) Lead [facility]plant [facility] [employer] [id number]/86 / [id number] / Pacemaker-02/14/2019 Implanted:05/2018 by Lexa Tapia MD (Quantity not on file) Pacemaker [facility] C[facility] - DIV [employer] [id number] / [id number] /
--- OUTSIDE RECORDS SUMMARY | 2024-07-10 09:26 | XMS_ITS | Encounter Summary ---
Author Organization [facility] Address [address] [facility] [address] [place] [address] Care Team Providers Care Cable Tender Name Role Phone Hermilo Jacobsen MD Primary Care Provider + [phone] Hermilo Jacobsen MD Primary Care Provider + [phone] Encounter Details Date Type Department Care Team (Late st Contact Info) Description 06/09/2016 Orders Only [facility] ProviderKarli MD [address] [place] [address] Social History Tobacco Use Types Packs/Day Years Used Date Smoking Tobacco: Former Cigarettes Q uit: 05/17/1983 Alcohol Use Standard Drinks/Week Comments Yes 0 (1 standard drink = 0.6 oz pur e alcohol) Sex and Gender Information Value Date Recorded Sex Assigned at Not on file Legal Sex Male 2:25 PM STUNNER ANIMAL Gender Identity Not on file Sexual Orientation Not on file documented as of this encounter Plan of Treatment Not on file documented as of this encounter Procedures Procedure Name Priority Date/Time Associated Diagnosis Comments CARDIOLOGY REPORT 06/09/2016 documented in this encounter Results * CARDIOLOGY REPORT (06/09/2016) Anatomical Region Laterality Modality Other Narrative 06/09/2016 Ordered by an unspecified provider. Historical Provider [facility] ALEXIA CASSIDY Final Result documented in this encounter Visit Diagnoses Not on filedocumented in this encounter Care Teams Cable Tender Relationship Specialty Start Date End Date Hermilo Jacobsen MD PCP - General 08/14/16 Hermilo Jacobsen MD PCP - General 11/06/15 08/13/16 documented as of this encounter
--- OUTSIDE RECORDS SUMMARY | 2024-07-10 09:26 | XMS_ITS | Referral Summary ---
Author Organization [facility] Address [address] [place] [address] Care Team Providers Care Lube Technician Name Role Phone Hermilo Jacobsen MD Primary Care Provider Encounters Date Type Department Care Team Description 07/07/2024 10:05 AM HARDWOOD SAWYER - 07/07/2024 11:59 PM HARDWOOD SAWYER Hospital Encounter [facility] Office Bldg 1 [facility] [address] [facility] [address] [place] [address] Encounter for screening for osteoporosis Discharge Disposition: Discharge to home or self care 05/08/2024 Orders Only [facility] Cardiology [address] [place] [address] [place] [phone] Cyndi Dougherty MD Left bundle branch block (LBBB) (Primary Dx); NICM (nonischemic cardiomyopathy) (CMS/HCC) (HCC); 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); Congestive heart failure, unspecified HF chronicity, unspecified heart failure type (HCC) 04/26/2024 Telephone [facility]iology [address] [facility] [address] [place] [phone] Lidia Gonzales NP 04/25/2024 9:45 AM HARDWOOD SAWYER Ancillary Procedure [facility]iology [address] [place] [address] [place] [phone] 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) (Primary Dx); NICM (nonischemic cardiomyopathy) (CMS/HCC) (HCC); Left bundle branch block (LBBB); VT (ventricular tachycardia) (HCC) 04/17/2024 9:30 AM HARDWOOD SAWYER Office Visit [facility] Cardiology [address] [place] [phone] Lidia Gonzales NP NICM (nonischemic cardiomyopathy) (CMS/HCC) ([facility]); Left bundle branch block (LBBB); ICD (implantable cardioverter-defibrill ator) in place; Nonobstructive atherosclerosis of coronary artery; Lipid screening; Low blood pressure reading; Ventricular tachycardia (HCC); Medication monitoring encounter from Last 3 Months Allergies Active Allergy Reactions Criticality Noted Date [...] valve stenosis, nonrheumatic 02/20/2019 NICM (nonischemic cardiomyopathy) ([facility]) 01/15 Overview (01/31/2019): Added automatically from request for surgery [id number] Assessment & Plan (10/20/2023 12:51 PM CDT): S/p MANAGER CASE MANAGEMENT-D system implantation. LV lead non-functional and programmed [...] year Assessment & Plan (06/23/2023 11:42 AM HARDWOOD SAWYER): S/p MANAGER CASE MANAGEMENT-D system with LV lead fracture. LV function remains generally preserved. He has mild HF symptoms but is quite functional, with no significant recent decline. We discussed indications for device revision with new LV lead. Given clinical stability, favor waiting and reassessing LV function. If there is decline, we would plan to revise his device. --Continue remote device f/u via [employer] --TTE as scheduled in September --F/u with me in October as scheduled Assessment & Plan (11/04/2022 11:23 AM CDT): S/p MANAGER CASE MANAGEMENT-D system implantation. LV lead fracture, now programmed [...] BI-V ICD implanted on 02/14/19 for NICM/CHF/LBBB. [facility]. Chronic RA/RV/LV leads are from 02/12/11. VT (ventricular tachycardia) 11/25/2016 Assessment & Plan (10/20/2023 12:51 PM CDT): Stable, no recurrence. Tolerating sotalol. --Continue sotalol 120 mg BID Assessment & Plan (06/23/2023 11:42 AM HARDWOOD SAWYER): Stable/no events. --Continue sotalol 120 mg BID [...] Plan (11/25/2016 11:49 AM CDT): Status post MANAGER CASE MANAGEMENT. Resolved Problems Problem Noted Date Diagnosed Date [...] has been successful. 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 Immunizations Immunization Administration Dates Next Due Influenza, Quadrivalent, Hig h Dose, Preservative Free, Intrr 02/05/2020 Influenza, Trivalent, High D ose, Split, Preservative Free, Intramuscular 03/30/2019,02/05/2018,02/04/2018 Influenza, Unspecified 02/23/2022 Pneumococcal Conjugate PCV 13 10/18/2018 Tdap 10/18/2018 ZOSTER Recombinant 02/21/2020,04/14/2019 Social History Tobacco Use Types Packs/Day Years [...] on file Legal Sex Male 2:25 PM HARDWOOD SAWYER Gender Identity Not on file Sexual Orientation Not on file Last Filed Vital Signs Vital Sign Reading Time Taken Comments Blood Pressure 90/54 04/17/2024 9:30 AM HARDWOOD SAWYER Pulse 53 04/17/2024 9:30 AM HARDWOOD SAWYER Temperature 37 C (98.6 F) 05/14/2023 1:48 PM HARDWOOD SAWYER Respiratory Rate 18 05/14/2023 5:30 PM HARDWOOD SAWYER Oxygen Saturation 96% 04/17/2024 9:30 AM HARDWOOD SAWYER Inhaled Oxygen Concentration - - Weight 87.1 kg (192 lb) 04/17/2024 9:30 AM HARDWOOD SAWYER Height 182.9 cm (6') 04/17/2024 9:30 AM HARDWOOD SAWYER Body Mass Index 26.04 04/17/2024 9:30 AM HARDWOOD SAWYER Plan of Treatment Not on file Medical Devices Implanted Type Area Christian Science Nurse Device Identifier Shelf Expiration Date Model / Serial / Lot Icd ICD Chest [employer] [id number] Unify Assura Rf Telemetry [id number]-[id number] Is-1 Connector 40j - [id number] - [id number] Implanted:Qty: 1 on 02/14/2019 by Lexa Tapia MD at [facility] ICD [employer] [id number] 04/15/2020 [id number] / [id number] / Procedures Procedure Name Priority Date/Time Associated Diagnosis Comments DEXA AXIAL SKELETON BONE DENSITY 1 OR MORE SITES Schedule Routine, Read Routine (OP Routine) 07/07/2024 10:23 AM HARDWOOD SAWYER Encounter for screening for osteoporosis DEVICE CHECK - REMOTE Routine 05/08/2024 4:22 PM HARDWOOD SAWYER NICM (nonischemic cardiomyopathy) (CMS/HCC) (HCC) Left bundle branch block (LBBB) VT (ventricular tachycardia) (HCC) POCT LIPID PANEL Routine 04/17/2024 9:34 AM HARDWOOD SAWYER Lipid screening ECG 12-LEAD Routine 04/17/2024 Medication monitoring encounter from Last 3 Months Results * Dexa Axial Skeleton Bone Density 1 or 2 Site (07/07/2024 10:23 AM HARDWOOD SAWYER) Anatomical Region Laterality Modality Body N/A Mammography 07/08/2024 11:0 1 AM HARDWOOD SAWYER Narrative 07/08/2024 11:02 AM HARDWOOD SAWYER EXAM DESCRIPTION: DEXA AXIAL SKELETON BONE DENSITY 1 OR MORE SITES REASON FOR STUDY: 78 y/o year old M with given history of: History of rheumatoid arthritis. Christian Science Nurse/Model: Area 1 Security A (S/N [id number]) Facility LSC value of 0.022 for the [...] Natividad Samuel M.D. TW: TW Report ID: [id number] Reading Location: [id number] Procedure Note Natividad Samuel MD - 07/08/2024 EXAM DESCRIPTION: DEXA AXIAL SKELETON BONE DENSITY 1 OR MORE SITES REASON FOR STUDY: 78 y/o year old M with given history of: History of rheumatoid arthritis. Christian Science Nurse/Model: HoloUpNext A (S/N [id number]) Facility LSC value of 0.022 for the [...] see below follow up recommendations. [facility] of low bone mineral density may [...] Natividad Samuel M.D. TW: TW Report ID: [id number] Reading Location: [id number] Tavo Del Angel NP IMG DXA PROCEDURES Final Re sult * DEVICE CHECK - REMOTE (05/08/2024 4:22 PM HARDWOOD SAWYER) Anatomical Region Laterality Modality Other Narrative 06/08/2024 12:54 PM HARDWOOD SAWYER Weathers Unify Assura BI-V ICD implanted on 02/14/19 for NICM/CHF/LBBB. [facility]. Chronic RA/RV/LV leads are from 02/12/11. Routine DDDR ICD Remote. Transmission attached. Battery status 37%, 2.7-3.5 years remaining battery life to LEROY. Stable Charge time and Shock impedance. Stable lead impedances, pacing, and sensing threshold. Presenting rhythm: -AP/V sensed AP-4.4 %, GUSSET MAKER-< 1 % (0) AT/AF episodes noted. (0) Ventricular tachy arrhythmias detected. Medication: ASA 81 mg, metoprolol 25 mg, sotalol 120 mg, losartan 50 mg Follow up: office device pacemaker/ICD 10/25/24 [facility] 08/01/24 Olvin Smith, HELGA Jennifer Engle MD [facility] PROCEDU RES Final Result * POCT lipid panel (04/17/2024 9:34 AM HARDWOOD SAWYER) Cholesterol, POC 100 mg/dL HDL, POC 31 mg/dL Triglycerides, POC 48 mg/dL LDL Cholesterol POC 55 mg/dL Chol/HDL Ratio, POC - Non-HDL Cholesterol, POC - mg/dL Cholesterol Total, POC 100 mg/dL Capillary blood 04/17/2024 9 :34 AM HARDWOOD SAWYER Lidia Gonzales NP POINT OF CARE TEST ORDERA BLES Final Result * ECG 12 lead (04/17/2024) 04/17/2024 Lidia Gonzales NP ECG ORDERABLES Edited Re sult - Final from Last 3 Months Insurance MEDICARE [facility] MEDICARE BLUE CROSS MEDICARE SUPPLEMENT MEDICARE [facility] Care Teams Lube Technician Relationship Specialty Start Date End Date Hermilo Jacobsen MD PCP - General 08/14/16
--- OUTSIDE RECORDS SUMMARY | 2024-07-10 09:26 | XMS_ITS | Encounter Summary ---
Author Organization [facility] Address [address] [facility] [address] [place] [address] Care Team Providers Care Sports Nutritionist Name Role Phone Hermilo Jacobsen MD Primary Care Provider + [phone] Hermilo Jacobsen MD Primary Care Provider + [phone] Encounter Details Date Type Department Care Team (Late st Contact Info) Description 05/20/2016 Orders Only [facility] ProviderKarli MD [address] [place] [address] Social History Tobacco Use Types Packs/Day Years Used Date Smoking Tobacco: Former Cigarettes Q uit: 05/17/1983 Alcohol Use Standard Drinks/Week Comments Yes 0 (1 standard drink = 0.6 oz pur e alcohol) Sex and Gender Information Value Date Recorded Sex Assigned at Not on file Legal Sex Male 2:25 PM ADMITTING COORDINATOR Gender Identity Not on file Sexual Orientation Not on file documented as of this encounter Plan of Treatment Not on file documented as of this encounter Procedures Procedure Name Priority Date/Time Associated Diagnosis Comments CARDIOLOGY REPORT 05/20/2016 documented in this encounter Results * CARDIOLOGY REPORT (05/20/2016) Anatomical Region Laterality Modality Other Narrative 05/20/2016 Ordered by an unspecified provider. Historical Provider [facility] ALEXIA CASSIDY Final Result documented in this encounter Visit Diagnoses Not on filedocumented in this encounter Care Teams Sports Nutritionist Relationship Specialty Start Date End Date Hermilo Jacobsen MD PCP - General 08/14/16 Hermilo Jacobsen MD PCP - General 11/06/15 08/13/16 documented as of this encounter
--- OUTSIDE RECORDS SUMMARY | 2024-07-10 09:26 | XMS_ITS | Encounter Summary ---
Author Organization [facility] Address [address] [facility] [address] [place] [address] Care Team Providers Care Car Scrubber Name Role Phone Hermilo Jacobsen MD Primary Care Provider Encounter Details Date Type Department Care Team (Late st Contact Info) Description 08/18/2016 Orders Only [facility] ProviderKarli MD [address] [place] [address] Social History Tobacco Use Types Packs/Day Years Used Date Smoking Tobacco: Former Cigarettes Q uit: 05/17/1983 Alcohol Use Standard Drinks/Week Comments Yes 0 (1 standard drink = 0.6 oz pur e alcohol) Sex and Gender Information Value Date Recorded Sex Assigned at Not on file Legal Sex Male 2:25 PM PURSE FRAMER Gender Identity Not on file Sexual Orientation Not on file documented as of this encounter Plan of Treatment Not on file documented as of this encounter Procedures Procedure Name Priority Date/Time Associated Diagnosis Comments CARDIOLOGY REPORT 08/18/2016 documented in this encounter Results * CARDIOLOGY REPORT (08/18/2016) Anatomical Region Laterality Modality Other Narrative 08/18/2016 Ordered by an unspecified provider. Historical Provider [facility] ALEXIA CASSIDY Final Result documented in this encounter Visit Diagnoses Not on filedocumented in this encounter Care Teams Car Scrubber Relationship Specialty Start Date End Date Hermilo Jacobsen MD PCP - General 3/31/17 documented as of this encounter
--- OUTSIDE RECORDS SUMMARY | 2024-07-10 09:26 | XMS_ITS | Clinical Summary ---
Author Organization [facility] Address [address] [facility] [place] [address] Care Team Providers Care Electrical Designer Drafter Name Role Phone Hermilo Jacobsen MD Primary Care Provider [phone] Allergies No known active allergies Medications sotalol (BETAPACE) 120 mg Tablet Take 120 mg by mouth every 12 hours . 03/01/2017 Active allopurinol (ZYLOPRIM) 300 mg tablet Take 300 mg by mouth daily . 09/11/2017 Active meloxicam (MOBIC) 15 mg tablet TAKE 1 TABLET BY MOUTH EVERY DAY 3 09/08/2017 Active multivitamin (DAILY-JOAQUÍN) tablet take 1 tablet by oral route every day 12/30/2010 Active cyanocobalamin 1,000 mcg Tablet Take 1,000 mcg by mouth daily . 03/07/2013 Active metoprolol tartrate (LOPRESSOR) 25 mg tablet TAKE 1 TABLET BY MOUTH TWICE A DAY 9 01/23/2018 Active rosuvastatin (CRESTOR) 20 mg tablet 03/04/2020 Active Active Problems Problem Noted Date Diagnosed Date Macrocytic anemia 11/01/2019 Pacemaker 09/15/2017 Resolved Problems Problem Noted Date Diagnosed Date Resolved Date Macrocytosis without anemia 09/15/2017 11/01/2019 Encounters Date Type Department Care Team Description 06/08/2024 External Device Data STL ABSTRACTION Provider, Abstract 06/07/2024 External Device Data STL ABSTRACTION Provider, Abstract 06/06/2024 External Device Data STL ABSTRACTION Provider, Abstract 05/30/2024 External Device Data STL ABSTRACTION Provider, Abstract from Last 3 Months Family History Medical History Relation Name Comments Liver Disease Father Stroke Maternal Grandfather Heart Disease Mother Relation Name Status Comments Father Maternal Grandfather Mother Social History Tobacco Use Types Packs/Day Years Used Date Smoking Tobacco: Former Cigarettes 1 963 1982 Tobacco Cessation:Counseling Given: Not Answered Alcohol Use Standard Drinks/Week Comments No 0 (1 standard drink = 0.6 oz pur e alcohol) Sex and Gender Information Value Date Recorded Sex Assigned at Not on file Legal Sex Male 9:56 AM CDT Gender Identity Not on file Sexual Orientation Not on file Last Filed Vital Signs Vital Sign Reading Time Taken Comments Blood Pressure 127/63 02/02/2024 9:39 AM CDT Pulse 70 02/02/2024 9:39 AM CDT Temperature 36.5 C (97.7 F) 02/02/2024 9:39 AM CDT Respiratory Rate 16 02/02/2024 9:39 AM CDT Oxygen Saturation 94% 02/02/2024 9:39 AM CDT Inhaled Oxygen Concentration - - Weight 89.8 kg (198 lb) 02/02/2024 9:39 AM CDT Height 182.9 cm (6') 01/29/2022 9:49 AM CDT Body Mass Index 26.85 01/29/2022 9:49 AM CDT Plan of Treatment Upcoming Encounters Date Type Department Care Team (Late st Contact Info) Description 02/01/2025 10:15 AM CDT Office Visit [facility] Oncology and Hematology - Blu [address] [facility] [address] [place] [address] Maurice Lang MD [address] [facility] [address] [place] [address] Health Maintenance Due Date Last Done Comments PNEUMOCOCCAL VACCINE 65+ YEA RS (2 of 2 - PPSV23) 10/19/2019 10/18/2018 RSV VACCINE (60+ or ) (1 - 1-dose 75+ series) 08/30/2022 INFLUENZA VACCINE (#1) 2023 0, 03/30/2019, 02/05/2018, Additional history exists COVID-19 Vaccine (3 - 2023-2 5 season) 2024 07/26/2020, 06/28/2020 DTAP/TDAP/TD VACCINES (2 - T d or Tdap) 10/18/2028 10/18/2018 ZOSTER VACCINE Completed 02/21/2020, 04/14/2019 COLORECTAL SCREENING Discontinued 04/15/2020 Colorectal Cancer Screening Discontinued FIT-DNA Q 3 years Discontinued FIT/FOBT Q 1 year Discontinued Flex Sig/CT Colonography Q 5 years Discontinued Insurance [facility] Care Teams Electrical Designer Drafter Relationship Specialty Start Date End Date Hermilo Jacobsen MD [address] [place] [address] PCP - General Family Practice 09/06/17
[2024-07-10 09:52] LABS: Cholesterol 89 mg/dL (0-200); HDL Direct 37 mg/dL; Triglycerides 63 mg/dL (<150)
[2024-07-10 10:02] LABS: LDL Cholesterol Direct 34 mg/dL
[2024-07-10 10:24] LABS: Prostate Specific Antigen 0.2 ng/mL (< OR = 4.0)
[2024-07-10 10:27] LABS: Creatinine Urine 86.9 mg/dL
[2024-07-10 10:31] LABS: MALB Creatinine Ratio 25.1 mg/g (0-30); Microalbumin Urine Random 21.8 mg/L (0-16.7)
== END 2024-07-10 08:52 | disposition home or self-care (01) ==
LOC: ANHLAB 08:53
PROVIDERS: PCP Nurse Practitioner Family; Visit Provider Nurse Practitioner Family
DX: E78.5 Hyperlipidemia, unspecified (principal); R73.03 Prediabetes; R35.1 Nocturia
CPT/HCPCS: 36415; 80061; 82043; 84153

== ENCOUNTER 2024-08-24 09:37 | Outpatient (CLI) | payer MEDICARE, SELFPAY ==
[2024-08-24 10:04] LABS: Hematocrit 38.4 % (42.0-52.0); Hemoglobin 12.8 g/dL (14.0-18.0); Mean Corpuscular HGB Conc 33.3 g/dl (32-36); Mean Corpuscular Hemoglobin 34.2 pg (26-34); Mean Corpuscular Volume 102.7 fl (80-100); Mean Platelet Volume 10.1 fl (7.4-10.4); Platelet Count Result 135 k/mm3 (150-375); Red Blood Count 3.74 M/mm3 (4.6-6.20); Red Cell Distribution Width 13.1 % (11.5-14.5); White Blood Count 4.7 K/mm3 (4.5-10.0)
--- OUTSIDE RECORDS SUMMARY | 2024-08-24 10:06 | XMS_ITS | Referral Summary ---
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) (Primary Dx); NICM (nonischemic cardiomyopathy) (HCC); Left bundle branch block (LBBB); VT (ventricular tachycardia) (HCC) 07/07/2024 10:05 AM EPIDEMIOLOGY INTERN - 07/07/2024 11:59 PM EPIDEMIOLOGY INTERN Hospital Encounter [facility] Medical Office Bldg 1 Breast [facility] [address] [place] [address] Encounter for screening for osteoporosis Discharge Disposition: Discharge to home or self care from Last 3 Months Allergies Active Allergy [...] valve stenosis, nonrheumatic 02/20/2019 NICM (nonischemic cardiomyopathy) 01/31/2019 Overview (01/31/2019): Added automatically from request for surgery [id number] Assessment & Plan (10/20/2023 12:51 PM CDT): S/p BURLAP MAN-D system implantation. LV lead non-functional and programmed [...] year Assessment & Plan (06/23/2023 11:42 AM EPIDEMIOLOGY INTERN): S/p BURLAP MAN-D system with LV lead fracture. LV function remains generally preserved. He has mild HF symptoms but is quite functional, with no significant recent decline. We discussed indications for device revision with new LV lead. Given clinical stability, favor waiting and reassessing LV function. If there is decline, we would plan to revise his device. --Continue remote device f/u via [employer] --TTE as scheduled in September --F/u with me in October as scheduled Assessment & Plan (11/04/2022 11:23 AM CDT): S/p BURLAP MAN-D system implantation. LV lead fracture, now programmed [...] BI-V ICD implanted on 02/14/19 for NICM/CHF/LBBB. [facility]. Chronic RA/RV/LV leads are from 02/12/11. VT (ventricular tachycardia) 11/25/2016 Assessment & Plan (10/20/2023 12:51 PM CDT): Stable, no recurrence. Tolerating sotalol. --Continue sotalol 120 mg BID Assessment & Plan (06/23/2023 11:42 AM EPIDEMIOLOGY INTERN): Stable/no events. --Continue sotalol 120 mg BID [...] Plan (11/25/2016 11:49 AM CDT): Status post BURLAP MAN. Resolved Problems Problem Noted Date Diagnosed Date [...] on file Legal Sex Male 2:25 PM EPIDEMIOLOGY INTERN Gender Identity Not on file Sexual Orientation Not on file Last Filed Vital Signs Vital Sign Reading Time Taken Comments Blood Pressure 90/54 04/17/2024 9:30 AM EPIDEMIOLOGY INTERN Pulse 53 04/17/2024 9:30 AM EPIDEMIOLOGY INTERN Temperature 37 C (98.6 F) 05/14/2023 1:48 PM EPIDEMIOLOGY INTERN Respiratory Rate 18 05/14/2023 5:30 PM EPIDEMIOLOGY INTERN Oxygen Saturation 96% 04/17/2024 9:30 AM EPIDEMIOLOGY INTERN Inhaled Oxygen Concentration - - Weight 87.1 kg (192 lb) 04/17/2024 9:30 AM EPIDEMIOLOGY INTERN Height 182.9 cm (6') 04/17/2024 9:30 AM EPIDEMIOLOGY INTERN Body Mass Index 26.04 04/17/2024 9:30 AM EPIDEMIOLOGY INTERN Plan of Treatment Not on file Medical Devices Implanted Type Area Document Control Assistant Device Identifier Shelf Expiration Date Model / Serial / Lot Icd ICD Chest [employer] [id number] Unify Assura Rf Telemetry Df4-Ll Is-1 Connector 40j - [id number] - [id number] Implanted:Qty: 1 on 02/14/2019 by Lexa Tapia MD at [facility] ICD [employer] [id number] 04/15/2020 [id number] / [id number] / Procedures Procedure Name Priority Date/Time Associated Diagnosis Comments DEVICE CHECK - REMOTE Routine 08/03/2024 10:51 AM CDT NICM (nonischemic cardiomyopathy) (HCC) Left bundle branch block (LBBB) VT (ventricular tachycardia) (HCC) DEXA AXIAL SKELETON BONE DENSITY 1 OR MORE SITES Schedule Routine, Read Routine (OP Routine) 07/07/2024 10:23 AM EPIDEMIOLOGY INTERN Encounter for screening for osteoporosis from Last 3 Months Results * DEVICE CHECK - REMOTE (08/03/2024 10:51 AM CDT) Anatomical Region Laterality Modality Other Narrative 08/07/2024 8:06 AM CDT Weathers Unify Assura BI-V ICD implanted on 02/14/19 for NICM/CHF/LBBB. [facility]. Chronic RA/RV/LV leads are from 02/12/11. Routine DDDR ICD Remote. Transmission attached. Battery status 35%, 2.5-3.2 years remaining battery life to [employer]ERO[employer]. Stable Charge time and Shock impedance. Stable lead impedances, pacing, and sensing threshold. Presenting rhythm: AP/VS AP-15 %, FUSE MAKER-< 1 % (0) AT/AF episodes noted. (0) Ventricular tachy arrhythmias detected. Medication: ASA 81 mg, losartan 50 mg, metoprolol 25 mg, Crestor 40 mg, sotalol 120 mg Follow up: Office Pacemaker/ICD scheduled 10/25/24 [facility] remote 6 months [place] Brendan Luis, RN Jennifer Engle MD [facility] PROCEDU RES Final Result * Dexa Axial Skeleton Bone Density 1 or 2 Site (07/07/2024 10:23 AM EPIDEMIOLOGY INTERN) Anatomical Region Laterality Modality Body N/A Mammography 07/08/2024 11:0 1 AM EPIDEMIOLOGY INTERN Narrative 07/08/2024 11:02 AM EPIDEMIOLOGY INTERN EXAM DESCRIPTION: DEXA AXIAL SKELETON BONE DENSITY 1 OR MORE SITES REASON FOR STUDY: 78 y/o year old M with given history of: History of rheumatoid arthritis. Document Control Assistant/Model: [employer]lines A (S/N [id number]) Facility LSC value of 0.022 for the [...] Natividad Samuel M.D. TW: TW Report ID: [id number] Reading Location: [id number] Procedure Note Natividad Samuel MD - 07/08/2024 EXAM DESCRIPTION: DEXA AXIAL SKELETON BONE DENSITY 1 OR MORE SITES REASON FOR STUDY: 78 y/o year old M with given history of: History of rheumatoid arthritis. Document Control Assistant/Model: 20lines A (S/N [id number]) Facility LSC value of 0.022 for the [...] Electronically signed by Natividad Samuel M.D. TW: MARIA DOLORES Report ID: [id number] Reading Location: [place] [address] Tavo Del Angel NP IMG DXA PROCEDURES Final Re sult from Last 3 Months Insurance MEDICARE [facility] MEDICARE BLUE CROSS MEDICARE SUPPLEMENT MEDICARE [facility] Care Teams Cyber Ops Planner Relationship Specialty Start Date End Date Hermilo Jacobsen MD PCP - General 08/14/16
--- OUTSIDE RECORDS SUMMARY | 2024-08-24 10:06 | XMS_ITS | Encounter Summary ---
Author Organization [facility] Address [address] [facility] [address] [place] [address] Care Team Providers Care Telephone Sales Representative Name Role Phone Hermilo Jacobsen MD Primary Care Provider + [phone] Hermilo Jacobsen MD Primary Care Provider + [phone] Encounter Details Date Type Department Care Team (Late st Contact Info) Description 06/09/2016 [facility] Only [facility] ProviderKarli MD [address] [place] [address] Social History Tobacco Use Types Packs/Day Years Used Date Smoking Tobacco: Former Cigarettes Q uit: 05/17/1983 Alcohol Use Standard Drinks/Week Comments Yes 0 (1 standard drink = 0.6 oz pur e alcohol) Sex and Gender Information Value Date Recorded Sex Assigned at Not on file Legal Sex Male 2:25 PM OFFICE SUPPORT Gender Identity Not on file Sexual Orientation [...] on filedocumented in this encounter Care Teams Telephone Sales Representative Relationship Specialty Start Date End Date Hermilo Jacobsen MD PCP - General 08/14/16 Hermilo Jacobsen MD PCP - General 11/06/15 08/13/16 documented as of this encounter
--- OUTSIDE RECORDS SUMMARY | 2024-08-24 10:06 | XMS_ITS | Clinical Summary ---
Author Organization [facility] Address [address] [place] [address] Care Team Providers Care Vice Investigator Name Role Phone Unavailable Primary Care Provider [...] - 2023-2 5 season) 2024 07/26/2020, 06/28/2020 Zoster Vaccines Completed 02/21/2020, 04/14/2019 Meningococcal B Vaccine Aged Out No l onger eligible based on patient's age to complete this topic Meningococcal Vaccine Aged Out No maria t claudette eligible based on patient's age to complete this topic RSV Immunizations Under 20 Months Aged Out No longer eligible b ased on patient's age to complete this topic Medical Devices Implanted Type Area Spring Production Supervisor Device Identifier Shelf Expiration Date Model / Serial / Lot Ra Lead Implant-2010 Implanted: (Quantity not on file) Lead Implant [employer] [facility] [employer] 5076 / [id number] / Rv Lead Implant-2010 Implanted: (Quantity not on file) Lead Implant [facility] [employer] - [facility] [employer] 7121Q/65 / [id number] / Lv Lead- 1 Implanted: (Quantity not on file) Lead Implant [facility] [employer] - [facility] [employer] 1258T/86 / [id number] / Pacemaker-02/14/2019 Implanted:05/2018 by Lexa Tapia MD (Quantity not on file) Pacemaker [facility] [employer] - [facility] [employer] [id number] / [id number] /
--- OUTSIDE RECORDS SUMMARY | 2024-08-24 10:06 | XMS_ITS | Clinical Summary ---
Author Organization [facility] Address [address] [facility] [place] [address] Care Team Providers Care Director Of Hotel Operations Name Role Phone Hermilo Jacobsen MD Primary [...] (01/31/2019): Added automatically from request for surgery [id number] Assessment & Plan (10/20/2023 12:51 PM CDT): S/p DOSIER OPERATOR-D system implantation. LV lead non-functional and programmed [...] year Assessment & Plan (06/23/2023 11:42 AM FRAME BANDER): S/p DOSIER OPERATOR-D system with LV lead fracture. LV function remains generally preserved. He has mild HF symptoms but is quite functional, with no significant recent decline. We discussed indications for device revision with new LV lead. Given clinical stability, favor waiting and reassessing LV function. If there is decline, we would plan to revise his device. --Continue remote device f/u via Ganesh --TTE as scheduled in September --F/u with me in October as scheduled Assessment & Plan (11/04/2022 11:23 AM CDT): S/p DOSIER OPERATOR-D system implantation. LV lead fracture, now programmed [...] BI-V ICD implanted on 02/14/19 for NICM/CHF/LBBB. [facility]. Chronic RA/RV/LV leads are from 02/12/11. VT (ventricular tachycardia) 11/25/2016 Assessment & Plan (10/20/2023 12:51 PM CDT): Stable, no recurrence. Tolerating sotalol. --Continue sotalol 120 mg BID Assessment & Plan (06/23/2023 11:42 AM FRAME BANDER): Stable/no events. --Continue sotalol 120 mg BID [...] Plan (11/25/2016 11:49 AM CDT): Status post DOSIER OPERATOR. Resolved Problems Problem Noted Date Diagnosed Date [...] Description 08/02/2024 7:00 AM CDT Ancillary Procedure [facility] Cardiology [address] [place] [id number] 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) (Primary Dx); NICM (nonischemic cardiomyopathy) ([facility]); Left bundle branch block (LBBB); VT (ventricular tachycardia) ([facility]) 07/07/2024 10:05 AM FRAME BANDER - 07/07/2024 11:59 PM FRAME BANDER Hospital Encounter [facility] Medical Office Bldg [address] [facility] [address] [place] [address] Encounter for screening for osteoporosis Discharge Disposition: Discharge to home or self care from Last 3 Months Immunizations Immunization Administration [...] Sleep apnea Sleep Apnea, CPA P Cardiomyopathy ([facility]) 2010 Cardiomyopa thy Family History Medical History [...] on file Legal Sex Male 2:25 PM FRAME BANDER Gender Identity Not on file Sexual Orientation Not on file Obstetrics History Last Filed Vital Signs Vital Sign Reading Time Taken Comments Blood Pressure 90/54 04/17/2024 9:30 AM FRAME BANDER Pulse 53 04/17/2024 9:30 AM FRAME BANDER Temperature 37 C (98.6 F) 05/14/2023 1:48 PM FRAME BANDER Respiratory Rate 18 05/14/2023 5:30 PM FRAME BANDER Oxygen Saturation 96% 04/17/2024 9:30 AM FRAME BANDER Inhaled Oxygen Concentration - - Weight 87.1 kg (192 lb) 04/17/2024 9:30 AM FRAME BANDER Height 182.9 cm (6') 04/17/2024 9:30 AM FRAME BANDER Body Mass Index 26.04 04/17/2024 9:30 AM FRAME BANDER Plan of Treatment Health Maintenance Due Date [...] history exists Medical Devices Implanted Type Area Overedge Machine Operator Device Identifier Shelf Expiration Date Model / Serial / Lot Icd ICD Chest [employer] [id number] Unify Assura Rf Telemetry [id number] Is-1 Connector [id number] - [id number] - [id number] Implanted:Qty: 1 on 02/14/2019 by Lexa Tapia MD at [facility] ICD [employer] [id number] 04/15/2020 [id number] / [id number] / Procedures Procedure Name Priority Date/Time Associated Diagnosis Comments DEVICE CHECK - REMOTE Routine 08/03/2024 10:51 AM CDT NICM (nonischemic cardiomyopathy) (HCC) Left bundle branch block (LBBB) VT (ventricular tachycardia) (HCC) DEXA AXIAL SKELETON BONE DENSITY 1 OR MORE SITES Schedule Routine, Read Routine (OP Routine) 07/07/2024 10:23 AM FRAME BANDER Encounter for screening for osteoporosis from Last 3 Months Results * DEVICE CHECK - REMOTE (08/03/2024 10:51 AM CDT) Anatomical Region Laterality Modality Other Narrative 08/07/2024 8:06 AM CDT [place] Unify Assura BI-V ICD implanted on 02/14/19 for NICM/CHF/LBBB. [facility]. Chronic RA/RV/LV leads are from 02/12/11. Routine DDDR ICD Remote. Transmission attached. Battery status 35%, 2.5-3.2 years remaining battery life to LEROY. Stable Charge time and Shock impedance. Stable lead impedances, pacing, and sensing threshold. Presenting rhythm: AP/VS AP-15 %, DEPUTY CORONER-< 1 % (0) AT/AF episodes noted. (0) Ventricular tachy arrhythmias detected. Medication: ASA 81 mg, losartan 50 mg, metoprolol 25 mg, Crestor 40 mg, sotalol 120 mg Follow up: Office Pacemaker/ICD scheduled 10/25/24 at [facility] remote 6 months Olvin Smith RN Jennifer Engle MD [facility] PROCEDU RES Final Result * Dexa Axial Skeleton Bone Density 1 or 2 Site (07/07/2024 10:23 AM FRAME BANDER) Anatomical Region Laterality Modality Body N/A Mammography 07/08/2024 11:0 1 AM FRAME BANDER Narrative 07/08/2024 11:02 AM FRAME BANDER EXAM DESCRIPTION: DEXA AXIAL SKELETON BONE DENSITY 1 OR MORE SITES REASON FOR STUDY: 78 y/o year old M with given history of: History of rheumatoid arthritis. Overedge Machine Operator/Model: TouchPal A (S/N [id number]) Facility LSC value of 0.022 for the [...] Natividad Samuel M.D. TW: TW Report ID: [id number] Reading Location: [id number] Procedure Note SamuelNatividad MD - 07/08/2024 EXAM DESCRIPTION: DEXA AXIAL SKELETON BONE DENSITY 1 OR MORE SITES REASON FOR STUDY: 78 y/o year old M with given history of: History of rheumatoid arthritis. Overedge Machine Operator/Model: Hologic Horizon A (S/N [id number]) Facility LSC value of 0.022 for the [...] Natividad Samuel M.D. TW: TW Report ID: [id number] Reading Location: [id number] Tavo Del Angel NP IMG DXA PROCEDURES Final Re sult from Last 3 Months Insurance MEDICARE [facility] MEDICARE BLUE CROSS MEDICARE SUPPLEMENT MEDICARE [facility] Care Teams Director Of Hotel Operations Relationship Specialty Start Date End Date Hermilo Jacobsen MD PCP - General 08/14/16
--- OUTSIDE RECORDS SUMMARY | 2024-08-24 10:06 | XMS_ITS | Clinical Summary ---
Author Organization [facility] Address [address] [facility] [place] [address] Care Team Providers Care Actuarial Science Teacher Name Role Phone Hermilo Jacobsen MD Primary Care Provider [phone] Allergies No known active allergies Medications sotalol [...] Encounters Date Type Department Care Team Description 08/15/2024 External Device Data ST[facility] ABSTRACTION Provider, Abstract 08/15/2024 External Device Data [facility] ABSTRACTION Provider, Abstract 08/15/2024 External Device Data [facility] ABSTRACTION Provider, Abstract 08/02/2024 External Device Data [facility] ABSTRACTION Provider, Abstract 07/24/2024 External Device Data [facility] ABSTRACTION Provider, Abstract 07/11/2024 External Device Data [facility] ABSTRACTION Provider, Abstract 06/08/2024 External Device Data [facility] ABSTRACTION Provider, [...] Used Date Smoking Tobacco: Former Cigarettes 1 1982 Tobacco Cessation:Counseling Given: Not Answered Alcohol [...] Description 02/01/2025 10:15 AM CDT Office Visit [facility] Oncology and Hematology - [address] [facility] [address] [place] [address] Maurice Lang MD [address] [facility] [address] [place] [address] Health Maintenance Due Date Last Done Comments PNEUMOCOCCAL VACCINE 50+ YEA RS (2 of 2 - PPSV23) [...] Discontinued Insurance MEDICARE PART A AND B [facility] MEDICARE PART A AND B BS SUPP Care Teams Actuarial Science Teacher Relationship Specialty Start Date End Date Hermilo Jacobsen MD [address] [place] [address] PCP - General Family Practice 09/06/17
--- OUTSIDE RECORDS SUMMARY | 2024-08-24 10:06 | XMS_ITS | Encounter Summary ---
Author Organization [facility] Address [address] [facility] [address] [place] [address] Care Team Providers Care Operational Test Mechanic Name Role Phone Hermilo Jacobsen MD Primary Care Provider Encounter Details Date Type Department Care Team (Late st Contact Info) Description 08/18/2016 Orders Only [facility] ProviderKarli MD [address] [place] [address] Social History Tobacco Use Types Packs/Day Years Used Date Smoking Tobacco: Former Cigarettes Q uit: 05/17/1983 Alcohol Use Standard Drinks/Week Comments Yes 0 (1 standard drink = 0.6 oz pur e alcohol) Sex and Gender Information Value Date Recorded Sex Assigned at Not on file Legal Sex Male 2:25 PM SPECIAL AGENT GROUP INSURANCE Gender Identity Not on file Sexual Orientation [...] on filedocumented in this encounter Care Teams Operational Test Mechanic Relationship Specialty Start Date End Date Hermilo Jacobsen MD PCP - General 3/31/17 documented as of this encounter
--- OUTSIDE RECORDS SUMMARY | 2024-08-24 10:06 | XMS_ITS | Encounter Summary ---
Author Organization [facility] Address [address] [facility] [address] [place] [address] Care Team Providers Care Pipe Fitter Apprentice Name Role Phone Hermilo Jacobsen MD Primary Care Provider + [phone] Hermilo Jacobsen MD Primary Care Provider + [phone] Encounter Details Date Type Department Care Team (Late st Contact Info) Description 05/20/2016 Orders Only [facility] ProviderKarli MD [address] [place] [address] Social History Tobacco Use Types Packs/Day Years Used Date Smoking Tobacco: Former Cigarettes Q uit: 05/17/1983 Alcohol Use Standard Drinks/Week Comments Yes 0 (1 standard drink = 0.6 oz pur e alcohol) Sex and Gender Information Value Date Recorded Sex Assigned at Not on file Legal Sex Male 2:25 PM RAMP SUPERVISOR Gender Identity Not on file Sexual Orientation [...] on filedocumented in this encounter Care Teams Pipe Fitter Apprentice Relationship Specialty Start Date End Date Hermilo Jacobsen MD PCP - General 08/14/16 Hermilo Jacobsen MD PCP - General 11/06/15 08/13/16 documented as of this encounter
[2024-08-24 12:24] LABS: Alanine Aminotransferase 52 U/L (6-50); Albumin Level 4.2 g/dL (3.5-5.1); Alkaline Phosphatase 69 U/L (38-126); Anion Gap 9 mmol/L (4-12); Aspartate Amino Transferase 50 U/L (17-59); Bilirubin,Total 0.8 mg/dL (0.2-1.3); Blood Urea Nitrogen 20 mg/dL (9-20); Calcium 9.2 mg/dL (8.4-10.2); Carbon Dioxide 24 mmol/L (22-30); Chloride 106 mmol/L (98-107); Estimated Glomerular Filt Rate 58; Glucose 73 mg/dL (65-110); Potassium 5.1 mmol/L (3.4-5.0); Sodium 139 mmol/L (137-145)
[2024-08-24 14:36] LABS: Immunoglobulin G 1243 mg/dL (700-1600)
[2024-08-24 14:44] LABS: Immunoglobulin M < 25 mg/dL (40-230)
[2024-08-29 12:39] LABS: Immunoglobulin A 263 mg/dL (70-320)
[2024-08-29 22:38] LABS: Actin Antibody (IgG) 74 U (<20)
== END 2024-08-24 09:38 | disposition home or self-care (01) ==
LOC: ANHLAB 09:39
PROVIDERS: PCP Nurse Practitioner Family; Visit Provider Nurse Practitioner Family
DX: R79.89 Other specified abnormal findings of blood chemistry (principal); K90.0 Celiac disease; K76.0 Fatty (change of) liver, not elsewhere classified; E83.110 Hereditary hemochromatosis
CPT/HCPCS: 36415; 80053; 82784; 83516; 85027; 86038; 86039

== ENCOUNTER 2024-09-11 09:38 | Outpatient (CLI) | payer MEDICARE, SELFPAY ==
--- NOTE | ~2024-09-11 | US_ITS ---
Limited ABDOMINAL ULTRASOUND (Doppler ultrasound interrogation techniques used as needed for this exa m.) Ordering provider: JENNIFER Castillo History: . R79.89 - Other specified abnormal findings of blood chemi... . Comparison: None. FINDINGS: PANCREAS: Normal echotexture and size. Visualized portion. PORTAL VEIN: Hepatopedal flow demonstrated. Thickened wall of the intrahepatic portal branches. LIVER: Normal size and echotexture. Measures 15.1 cm. No focal hepatic lesions or perihepatic fluid c ollections are identified. BILIARY DUCTS: No intra or extrahepatic biliary dilation. Common bile duct measures 3.2 mm in diamete r which is normal for patient's age. GALLBLADDER: Normal. No stones, sludge, gallbladder wall thickening or pericholecystic fluid. Wall th ickness is 2 mm. Negative sonographic Cristina's sign. IVC: Patent. Abdominal aorta: Patent. FREE FLUID: None visualized within the upper abdomen. IMPRESSION: Thickened hyperechoic wall of the intrahepatic portal vein branches suggestive of cirrhosis versus po rtal hypertension. Clinical correlation advised. Otherwise, normal limited abdominal ultrasound. Reviewed, dictated and finalized at location A. IMPRESSION: Thickened hyperechoic wall of the intrahepatic portal vein branches suggestive of cirrhosis versus portal hypertension. Clinical correlation advised. Otherwis e, normal limited abdominal ultrasound.
--- OUTSIDE RECORDS SUMMARY | 2024-09-11 10:38 | XMS_ITS | Clinical Summary ---
Author Organization [facility] Address [address] [facility] [place] [address] Care Team Providers Care Order Administrator Name Role Phone Hermilo Jacobsen MD Primary Care Provider [phone] Allergies No known active allergies Medications sotalol (BETAPACE) 120 mg Tablet Take 120 mg by mouth every 12 hours . 03/01/2017 Active allopurinol (ZYLOPRIM) 300 mg tablet Take 300 mg by mouth daily . 09/11/2017 Active meloxicam (MOBIC) 15 mg tablet TAKE 1 TABLET BY MOUTH EVERY DAY 3 09/08/2017 Active multivitamin (DAILY-OJAQUÍN) tablet take 1 tablet by oral route [...] Description 02/01/2025 10:15 AM CDT Office Visit [facility] Oncology and Hematology - Blu [address] [facility] [address] [place] [address] Maurice Lang MD [address] [facility] [address] [place] [address] Health Maintenance Due Date Last Done Comments PNEUMOCOCCAL VACCINE 50+ YEA RS (2 of 2 - PPSV23) 10/19/2019 10/18/2018 RSV VACCINE (60+ or ) (1 - 1-dose 75+ series) 08/30/2022 INFLUENZA VACCINE (#1) 2023 0, 03/30/2019, 02/05/2018, Additional history exists COVID-19 Vaccine ( - 2023-2 5 season) 2024 07/26/2020, 06/28/2020 DTAP/TDAP/TD VACCINES (2 - T d or Tdap) 10/18/2028 10/18/2018 ZOSTER VACCINE Completed 02/21/2020, 04/14/2019 COLORECTAL SCREENING Discontinued 04/15/2020 Colorectal Cancer Screening Discontinued FIT-DNA Q 3 years Discontinued FIT/FOBT Q 1 year Discontinued Flex Sig/CT Colonography Q 5 years Discontinued Insurance MEDICARE PART A AND B [employer] SUPP MEDICARE PART A AND B [employer] SUPP Care Teams Order Administrator Relationship Specialty Start Date End Date Hermilo Jacobsen MD [address] [place] [address] PCP - General Family Practice 09/06/17
--- OUTSIDE RECORDS SUMMARY | 2024-09-11 10:38 | XMS_ITS | Clinical Summary ---
Author Organization [facility] Address [address] [place] [address] Care Team Providers Care Percher Name Role Phone Unavailable Primary Care Provider Unavailabl e Immunizations Immunization Administration Dates Next Due MODERNA COVID-19 (12+) [...] ( 1 - Tdap) 08/30/1966 Pneumococcal Vaccine: 50+ Years (2 of 2 - PPSV23) 10/19/2019 10/18/2018 RSV Immunization or 60+ Years [...] this topic Medical Devices Implanted Type Area Ruby On Rails Engineer Device Identifier Shelf Expiration Date Model / Serial / Lot Ra Lead Implant-2010 Implanted: (Quantity not on file) Lead Implant [facility] [employer] - DIV [employer] 5076 / [id number] / Rv Lead Implant-2010 Implanted: (Quantity not on file) Lead Implant [facility] [employer] - DIV [employer] 7121Q/65 / [id number] / Lv Lead- 1 Implanted: (Quantity not on file) Lead Implant [facility] [employer] - DIV [employer] 1258T/86 / [id number] / Pacemaker-02/14/2019 Implanted:05/2018 by Lexa Tapia MD (Quantity not on file) Pacemaker [facility] [employer] - [facility] DEMI [id number] / [id number] /
--- OUTSIDE RECORDS SUMMARY | 2024-09-11 10:38 | XMS_ITS | Encounter Summary ---
Author Organization [facility] Address [address] [facility] [address] [place] [address] Care Team Providers Care Physician Extender Name Role Phone Hermilo Jacobsen MD Primary Care Provider [phone] Encounter Details Date Type Department Care Team (Late st Contact Info) Description 08/18/2016 Orders Only [facility] ProviderKarli MD [address] [place] [address] Social History Tobacco Use Types Packs/Day Years Used Date Smoking Tobacco: Former Cigarettes Q uit: 05/17/1983 Alcohol Use Standard Drinks/Week Comments Yes 0 (1 standard drink = 0.6 oz pur e alcohol) Sex and Gender Information Value Date Recorded Sex Assigned at Not on file Legal Sex Male 2:25 PM ADULT FAMILY HOME PROGRAM MANAGER Gender Identity Not on file Sexual Orientation [...] on filedocumented in this encounter Care Teams Physician Extender Relationship Specialty Start Date End Date Hermilo Jacobsen MD PCP - General 3/31/17 documented as of this encounter
--- OUTSIDE RECORDS SUMMARY | 2024-09-11 10:38 | XMS_ITS | Encounter Summary ---
Author Organization [facility] Address [address] [facility] [address] [place] [address] Care Team Providers Care Board Operator Name Role Phone Hermilo Jacobsen MD Primary Care Provider + [phone] Hermilo Jacobsen MD Primary Care Provider + [phone] Encounter Details Date Type Department Care Team (Late st Contact Info) Description 06/09/2016 Orders Only [facility] ProviderKarli MD [address] [place] [address] Social History Tobacco Use Types Packs/Day Years Used Date Smoking Tobacco: Former Cigarettes Q uit: 05/17/1983 Alcohol Use Standard Drinks/Week Comments Yes 0 (1 standard drink = 0.6 oz pur e alcohol) Sex and Gender Information Value Date Recorded Sex Assigned at Not on file Legal Sex Male 2: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
--- OUTSIDE RECORDS SUMMARY | 2024-09-11 10:38 | XMS_ITS | Referral Summary ---
Author Organization [facility] C Address [address] [place] [address] Care Team Providers Care Wrapper Opener Name Role Phone Hermilo Jacobsen MD Primary Care Provider [phone] Encounters Date Type Department Care Team Description 08/02/2024 7:00 AM CDT Ancillary Procedure [facility] Cardiology [address] [place] [id number] 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) (Primary Dx); NICM (nonischemic cardiomyopathy) (HCC); Left bundle branch block (LBBB); VT (ventricular tachycardia) (HCC) 07/07/2024 10:05 AM MILLING GENERAL SUPERINTENDENT - 07/07/2024 11:59 PM MILLING GENERAL SUPERINTENDENT Hospital Encounter [facility] Medical Office Bldg 1 Breast [facility] [address] [place] [address] Encounter for screening for osteoporosis Discharge Disposition: Discharge to home or self care from Last 3 Months Allergies Active Allergy Reactions Criticality Noted Date Comments Nitroglycerin Headache Low 05/30/2023 Rec'd TNG LS for CTA coronary arteries 04/2023. Developed MAIN, lightheadedness, pain up and down his back, some shortness of breath and possible some hypoxemia. Seen in the ER, Improved rapidly, discharged. Medications multivitamin-m inerals-lutein (CENTRUM SILVER) tablet take 1 tablet by oral route every day 0 1 Active allopurinol (ZYLOPRIM) 300 mg tablet take 1 tablet by oral route every day 0 0 5 Active meloxicam (MOBIC) 15 mg tablet take 1 tablet by oral route every day 0 0 5 Active Lactobac no.41-Bifidoba ct no.7 70 mg (3 billion cell) capsule Take 1 capsule by mouth daily. Active aspirin 81 mg enteric coated tablet Take 1 tablet (81 mg total) by mouth daily 4 Active sotaloL (BETAPACE) 120 mg tablet TAKE 1 TABLET BY MOUTH TWICE A DAY 180 tablet 3 4 Active escitalopram (LEXAPRO) 10 mg tablet Take 1 tablet (10 mg total) by mouth daily 4 Active rosuvastatin (CRESTOR) 40 mg tablet TAKE 1 TABLET BY MOUTH EVERY DAY 90 tablet 3 4 Active losartan (COZAAR) 50 mg tablet TAKE 1 TABLET BY MOUTH EVERY DAY 90 tablet 3 4 Active metoprolol tartrate (LOPRESSOR) 25 mg immediate release tablet TAKE 1 TABLET BY MOUTH TWICE A DAY 180 tablet 2 5 Active metoprolol tartrate (LOPRESSOR) 25 mg immediate release tablet TAKE 1 TABLET BY MOUTH TWICE A DAY 180 tablet 2 4 09/12/19 25 Discontinued Active Problems Problem Noted Date Diagnosed Date Nonobstructive atherosclerosis of coronary arter y 10/15/2023 HANDY (dyspnea on exertion) 04/13/2023 Pacemaker lead failure, subsequent encounter Hypercholesteremia 09/10/2020 Hyperkalemia 03/05/2020 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 LV lead non-functional and programmed [...] year Assessment & Plan (06/23/2023 11:42 AM MILLING GENERAL SUPERINTENDENT): S/p TILE ROOFER-D system with LV lead fracture. LV function remains generally preserved. He has mild HF symptoms but is quite functional, with no significant recent decline. We discussed indications for device revision with new LV lead. Given clinical stability, favor waiting and reassessing LV function. If there is decline, we would plan to revise his device. --Continue remote device f/u via [place] --TTE as scheduled in September --F/u with me in October as scheduled Assessment & Plan (11/04/2022 11:23 AM CDT): S/p TILE ROOFER-D system implantation. LV lead fracture, now programmed [...] BI-V ICD implanted on 02/14/19 for NICM/CHF/LBBB. [facility]. Chronic RA/RV/LV leads are from 02/12/11. VT (ventricular tachycardia) 11/25/2016 Assessment & Plan (10/20/2023 12:51 PM CDT): Stable, no recurrence. Tolerating sotalol. --Continue sotalol 120 mg BID Assessment & Plan (06/23/2023 11:42 AM MILLING GENERAL SUPERINTENDENT): Stable/no events. --Continue sotalol 120 mg BID [...] Plan (11/25/2016 11:49 AM CDT): Status post TILE ROOFER. Resolved Problems Problem Noted Date Diagnosed Date [...] on file Legal Sex Male 2:25 PM MILLING GENERAL SUPERINTENDENT Gender Identity Not on file Sexual Orientation Not on file Last Filed Vital Signs Vital Sign Reading Time Taken Comments Blood Pressure 90/54 04/17/2024 9:30 AM MILLING GENERAL SUPERINTENDENT Pulse 53 04/17/2024 9:30 AM MILLING GENERAL SUPERINTENDENT Temperature 37 C (98.6 F) 05/14/2023 1:48 PM MILLING GENERAL SUPERINTENDENT Respiratory Rate 18 05/14/2023 5:30 PM MILLING GENERAL SUPERINTENDENT Oxygen Saturation 96% 04/17/2024 9:30 AM MILLING GENERAL SUPERINTENDENT Inhaled Oxygen Concentration - - Weight 87.1 kg (192 lb) 04/17/2024 9:30 AM MILLING GENERAL SUPERINTENDENT Height 182.9 cm (6') 04/17/2024 9:30 AM MILLING GENERAL SUPERINTENDENT Body Mass Index 26.04 04/17/2024 9:30 AM MILLING GENERAL SUPERINTENDENT Plan of Treatment Not on file Medical Devices Implanted Type Area Skating Rink Manager Device Identifier Shelf Expiration Date Model / Serial / Lot Icd ICD Chest [employer] [id number] Unify Assura Rf Telemetry Df4-Ll Is-1 Connector 40j - [id number] - [id number] Implanted:Qty: 1 on 02/14/2019 by Lexa Tapia MD at [facility] ICD [employer] [id number] 04/15/2020 [id number] / [id number] / Procedures Procedure Name Priority Date/Time Associated Diagnosis Comments DEVICE CHECK - REMOTE Routine 08/03/2024 10:51 AM CDT NICM (nonischemic cardiomyopathy) (HCC) Left bundle branch block (LBBB) VT (ventricular tachycardia) (HCC) DEXA AXIAL SKELETON BONE DENSITY 1 OR MORE SITES Schedule Routine, Read Routine (OP Routine) 07/07/2024 10:23 AM MILLING GENERAL SUPERINTENDENT Encounter for screening for osteoporosis from Last 3 Months Results * DEVICE CHECK - REMOTE (08/03/2024 10:51 AM CDT) Anatomical Region Laterality Modality Other Narrative 08/07/2024 8:06 AM CDT Weather[place] Unify Assura BI-V ICD implanted on 02/14/19 for NICM/CHF/LBBB. [facility]. Chronic RA/RV/LV leads are from 02/12/11. Routine DDDR ICD Remote. Transmission attached. Battery status 35%, 2.5-3.2 years remaining battery life to [facility]EROY. Stable Charge time and Shock impedance. Stable lead impedances, pacing, and sensing threshold. Presenting rhythm: AP/VS AP-15 %, AIRCRAFT DESIGNER-< 1 % (0) AT/AF episodes noted. (0) Ventricular tachy arrhythmias detected. Medication: ASA 81 mg, losartan 50 mg, metoprolol 25 mg, Crestor 40 mg, sotalol 120 mg Follow up: Office Pacemaker/ICD scheduled 10/25/24 [facility] 6 months Olvin Smith RN us Jennifer Engle MD CV CARDIAC SERVICES PROCEDU RES Final Result * Dexa Axial Skeleton Bone Density 1 or 2 Site (07/07/2024 10:23 AM MILLING GENERAL SUPERINTENDENT) Anatomical Region Laterality Modality Body N/A Mammography 07/08/2024 11:0 1 AM MILLING GENERAL SUPERINTENDENT Narrative 07/08/2024 11:02 AM MILLING GENERAL SUPERINTENDENT EXAM DESCRIPTION: DEXA AXIAL SKELETON BONE DENSITY 1 OR MORE SITES REASON FOR STUDY: 78 y/o year old M with given history of: History of rheumatoid arthritis. Skating Rink Manager/Model: [employer] A (S/N [id number]) Facility LSC value of 0.022 for the [...] Electronically signed by Natividad Samuel M.D. TW: Report ID: [id number] Reading Location: [place] [address] Procedure Note Natividad Samuel MD - 07/08/2024 EXAM DESCRIPTION: DEXA AXIAL SKELETON BONE DENSITY 1 OR MORE SITES REASON FOR STUDY: 78 y/o year old M with given history of: History of rheumatoid arthritis. Skating Rink Manager/Model: [employer] A (S/N [id number]) Facility LSC value of 0.022 for the [...] Samuel M.D. TW: MARIA DOLORES Report ID: [id number] Reading Location: [place] [address] Tavo Del Angel NP IMG DXA PROCEDURES Final Re sult from Last 3 Months Insurance MEDICARE [facility] MEDICARE BLUE CROSS MEDICARE SUPPLEMENT MEDICARE [facility] Care Teams Wrapper Opener Relationship Specialty Start Date End Date Hermilo Jacobsen MD PCP - General 08/14/16
--- OUTSIDE RECORDS SUMMARY | 2024-09-11 10:38 | XMS_ITS | Encounter Summary ---
Author Organization [facility] Address [address] [facility] [address] [place] [address] Care Team Providers Care Pattern And Chain Maker Name Role Phone Hermilo Jacobsen MD Primary Care Provider + [phone] Hermilo Jacobsen MD Primary Care Provider [phone] Encounter Details Date Type Department Care Team (Late st Contact Info) Description 05/20/2016 Orders Only [facility] ProviderKarli MD [address] [place] [address] Social History Tobacco Use Types Packs/Day Years Used Date Smoking Tobacco: Former Cigarettes Q uit: 05/17/1983 Alcohol Use Standard Drinks/Week Comments Yes 0 (1 standard drink = 0.6 oz pur e alcohol) Sex and Gender Information Value Date Recorded Sex Assigned at Not on file Legal Sex Male 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
--- OUTSIDE RECORDS SUMMARY | 2024-09-11 10:38 | XMS_ITS | Clinical Summary ---
Author Organization [facility] C Address [address] [facility] [place] [address] Care Team Providers Care Gas Engine Repairer Name Role Phone Hermilo Jacobsen MD Primary Care Provider [phone] Allergies Active Allergy Reactions Criticality Noted Date [...] (01/31/2019): Added automatically from request for surgery [id number] Assessment & Plan (10/20/2023 12:51 PM CDT): S/p HEALTH IT SPECIALIST-D system implantation. LV lead non-functional and programmed [...] year Assessment & Plan (06/23/2023 11:42 AM ARCHIVIST ECONOMIC HISTORY): S/p HEALTH IT SPECIALIST-D system with LV lead fracture. LV function remains generally preserved. He has mild HF symptoms but is quite functional, with no significant recent decline. We discussed indications for device revision with new LV lead. Given clinical stability, favor waiting and reassessing LV function. If there is decline, we would plan to revise his device. --Continue remote device f/u via [place] --TTE as scheduled in September --F/u with me in October as scheduled Assessment & Plan (11/04/2022 11:23 AM CDT): S/p HEALTH IT SPECIALIST-D system implantation. LV lead fracture, now programmed [...] BI-V ICD implanted on 02/14/19 for NICM/CHF/LBBB. [facility]. Chronic RA/RV/LV leads are from 02/12/11. VT (ventricular tachycardia) 11/25/2016 Assessment & Plan (10/20/2023 12:51 PM CDT): Stable, no recurrence. Tolerating sotalol. --Continue sotalol 120 mg BID Assessment & Plan (06/23/2023 11:42 AM ARCHIVIST ECONOMIC HISTORY): Stable/no events. --Continue sotalol 120 mg BID [...] Plan (11/25/2016 11:49 AM CDT): Status post HEALTH IT SPECIALIST. Resolved Problems Problem Noted Date Diagnosed Date [...] Description 08/02/2024 7:00 AM CDT Ancillary Procedure [facility] Cardiology [facility] [facility] [address] [place] [phone] 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) (Primary Dx); NICM (nonischemic cardiomyopathy) (HCC); Left bundle branch block (LBBB); VT (ventricular tachycardia) (HCC) 07/07/2024 10:05 AM ARCHIVIST ECONOMIC HISTORY - 07/07/2024 11:59 PM ARCHIVIST ECONOMIC HISTORY Hospital Encounter [facility] Medical Office Bl [address] [place] [address] Encounter for screening for osteoporosis Discharge Disposition: [...] on file Legal Sex Male 2:25 PM ARCHIVIST ECONOMIC HISTORY Gender Identity Not on file Sexual Orientation Not on file Obstetrics History Last Filed Vital Signs Vital Sign Reading Time Taken Comments Blood Pressure 90/54 04/17/2024 9:30 AM ARCHIVIST ECONOMIC HISTORY Pulse 53 04/17/2024 9:30 AM ARCHIVIST ECONOMIC HISTORY Temperature 37 C (98.6 F) 05/14/2023 1:48 PM ARCHIVIST ECONOMIC HISTORY Respiratory Rate 18 05/14/2023 5:30 PM ARCHIVIST ECONOMIC HISTORY Oxygen Saturation 96% 04/17/2024 9:30 AM ARCHIVIST ECONOMIC HISTORY Inhaled Oxygen Concentration - - Weight 87.1 kg (192 lb) 04/17/2024 9:30 AM ARCHIVIST ECONOMIC HISTORY Height 182.9 cm (6') 04/17/2024 9:30 AM ARCHIVIST ECONOMIC HISTORY Body Mass Index 26.04 04/17/2024 9:30 AM ARCHIVIST ECONOMIC HISTORY Plan of Treatment Health Maintenance Due Date [...] history exists Medical Devices Implanted Type Area Physician Credentialing Specialist Device Identifier Shelf Expiration Date Model / Serial / Lot Icd ICD Chest [facility] [employer] [id number] Unify Assura Rf Telemetry 4-Ll Is-1 Connector 40j - [id number] - [id number] Implanted:Qty: 1 on 02/14/2019 by Lexa Tapia MD at [facility] ICD [employer] [id number] 04/15/2020 [id number] / [id number] / Procedures Procedure Name Priority Date/Time Associated Diagnosis Comments DEVICE CHECK - REMOTE Routine 08/03/2024 10:51 AM CDT NICM (nonischemic cardiomyopathy) (HCC) Left bundle branch block (LBBB) VT (ventricular tachycardia) (HCC) DEXA AXIAL SKELETON BONE DENSITY 1 OR MORE SITES Schedule Routine, Read Routine (OP Routine) 07/07/2024 10:23 AM ARCHIVIST ECONOMIC HISTORY Encounter for screening for osteoporosis from Last 3 Months Results * DEVICE CHECK - REMOTE (08/03/2024 10:51 AM CDT) Anatomical Region Laterality Modality Other Narrative 08/07/2024 8:06 AM CDT [place] Unify Assura BI-V ICD implanted on 02/14/19 for NICM/CHF/LBBB. [facility]. Chronic RA/RV/LV leads are from 02/12/11. Routine DDDR ICD Remote. Transmission attached. Battery status 35%, 2.5-3.2 years remaining battery life to [facility]. Stable Charge time and Shock impedance. Stable lead impedances, pacing, and sensing threshold. Presenting rhythm: AP/VS AP-15 %, TRIMMER PRESS CLIPPINGS-< 1 % (0) AT/AF episodes noted. (0) Ventricular tachy arrhythmias detected. Medication: ASA 81 mg, losartan 50 mg, metoprolol 25 mg, Crestor 40 mg, sotalol 120 mg Follow up: Office Pacemaker/ICD scheduled 10/25/24 at [facility] [place] remote 6 months Olvin Smith, HELGA us Jennifer Engle MD CV CARDIAC SERVICES PROCEDU RES Final Result * Dexa Axial Skeleton Bone Density 1 or 2 Site (07/07/2024 10:23 AM ARCHIVIST ECONOMIC HISTORY) Anatomical Region Laterality Modality Body N/A Mammography 07/08/2024 11:0 1 AM ARCHIVIST ECONOMIC HISTORY Narrative 07/08/2024 11:02 AM ARCHIVIST ECONOMIC HISTORY EXAM DESCRIPTION: DEXA AXIAL SKELETON BONE DENSITY 1 OR MORE SITES REASON FOR STUDY: 78 y/o year old M with given history of: History of rheumatoid arthritis. Physician Credentialing Specialist/Model: [employer] A (S/N [id number]) Facility LSC value of 0.022 for the [...] Natividad Samuel M.D. TW: TW Report ID: [id number] Reading Location: [id number] Procedure Note Natividad Samuel MD - 07/08/2024 EXAM DESCRIPTION: DEXA AXIAL SKELETON BONE DENSITY 1 OR MORE SITES REASON FOR STUDY: 78 y/o year old M with given history of: History of rheumatoid arthritis. Physician Credentialing Specialist/Model: [employer] A (S/N [id number]) Facility LSC value of 0.022 for the [...] Samuel M.D. TW: MARIA DOLORES Report ID: [id number] Reading Location: [id number] Tavo Del Angel NP IMG DXA PROCEDURES Final Re sult from Last 3 [place] [address] [facility] MEDICARE BLUE CROSS MEDICARE SUPPLEMENT MEDICARE [facility] Care Teams Gas Engine Repairer Relationship Specialty Start Date End Date Hermilo Jacobsen MD [facility] - General 08/14/16
== END 2024-09-11 09:39 | disposition home or self-care (01) ==
PROVIDERS: PCP Nurse Practitioner Family; Visit Provider Nurse Practitioner Family
DX: R79.89 Other specified abnormal findings of blood chemistry (principal); K76.0 Fatty (change of) liver, not elsewhere classified; E83.110 Hereditary hemochromatosis
CPT/HCPCS: 76705

== ENCOUNTER 2024-10-13 09:52 | Outpatient (CLI) | payer MEDICARE, SELFPAY ==
--- OUTSIDE RECORDS SUMMARY | 2024-10-13 10:06 | XMS_ITS | Clinical Summary ---
Author Organization [facility] Address [address] [place] [address] Care Team Providers Care Associate Professor Of Library Science Name Role Phone Hermilo Jacobsen MD Primary [...] mg total) by mouth daily 05/19/2023 Active sotaloL (BETAPACE) 120 mg tablet TAKE [...] EVERY DAY 90 tablet 3 05/11/2024 Active metoprolol tartrate (LOPRESSOR) 25 mg immediate release tablet TAKE 1 TABLET BY MOUTH TWICE A DAY 180 tablet 2 09/11/2024 Active Active Problems Problem Noted Date Diagnosed Date Nonobstructive atherosclerosis of coronary arter y 10/15/2023 HANDY (dyspnea on exertion) 04/13/2023 Pacemaker lead failure, subsequent encounter Hypercholesteremia 09/10/2020 Hyperkalemia 03/05/2020 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 LV lead non-functional and programmed [...] year Assessment & Plan (06/23/2023 11:42 AM LABORATORY MACHINIST): S/p BULK TANK DRIVER-D system with LV lead fracture. LV function [...] & Plan (11/04/2022 11:23 AM CDT): S/p BULK TANK DRIVER-D system implantation. LV lead fracture, now programmed [...] BI-V ICD implanted on 02/14/19 for NICM/CHF/LBBB. [facility]. Chronic RA/RV/LV leads are from 02/12/11. VT (ventricular tachycardia) 11/25/2016 Assessment & Plan (10/20/2023 12:51 PM CDT): Stable, no recurrence. Tolerating sotalol. --Continue sotalol 120 mg BID Assessment & Plan (06/23/2023 11:42 AM LABORATORY MACHINIST): Stable/no events. --Continue sotalol 120 mg BID [...] Plan (11/25/2016 11:49 AM CDT): Status post BULK TANK DRIVER. Resolved Problems Problem Noted Date Diagnosed Date [...] Encounters Date Type Department Care Team Description 10/11/2024 Orders Only [facility] [address] [address] Donte Stanford III, MD Cardiac arrhythmia, unspecified cardiac arrhythmia type (Primary Dx); Atrial fibrillation, unspecified type (HCC) 08/02/2024 7:00 AM CDT Ancillary Procedure [facility] Cardiology [address] [place] [address] Presence of biventricular automatic cardioverter/defibril lator (AICD) (Primary Dx); NICM (nonischemic cardiomyopathy) (HCC); Left bundle branch block (LBBB); VT (ventricular tachycardia) (HCC) from Last 3 Months Immunizations Immunization Administration [...] Sleep apnea Sleep Apnea, CPA P Cardiomyopathy ([facility]) 2010 Cardiomyopa thy Family History Medical History [...] on file Legal Sex Male 2:25 PM LABORATORY MACHINIST Gender Identity Not on file Sexual Orientation Not on file Obstetrics History Last Filed Vital Signs Vital Sign Reading Time Taken Comments Blood Pressure 90/54 04/17/2024 9:30 AM LABORATORY MACHINIST Pulse 53 04/17/2024 9:30 AM LABORATORY MACHINIST Temperature 37 C (98.6 F) 05/14/2023 1:48 PM LABORATORY MACHINIST Respiratory Rate 18 05/14/2023 5:30 PM LABORATORY MACHINIST Oxygen Saturation 96% 04/17/2024 9:30 AM LABORATORY MACHINIST Inhaled Oxygen Concentration - - Weight 87.1 kg (192 lb) 04/17/2024 9:30 AM LABORATORY MACHINIST Height 182.9 cm (6') 04/17/2024 9:30 AM LABORATORY MACHINIST Body Mass Index 26.04 04/17/2024 9:30 AM LABORATORY MACHINIST Plan of Treatment Health Maintenance Due Date [...] history exists Medical Devices Implanted Type Area Detonator Maker Device Identifier Shelf Expiration Date Model / Serial / Lot Icd ICD Chest [facility] [employer] [id number] Unify Assura Rf Telemetry Df4-Llhh Is-1 Connector 40j - [id number] - [id number] Implanted:Qty: 1 on 02/14/2019 by Lexa Tapia MD at [facility] ICD [employer] [id number] 04/15/2020 [id number] / [id number] / Procedures Procedure Name Priority Date/Time Associated Diagnosis Comments DEVICE CHECK - REMOTE Routine 08/03/2024 10:51 AM CDT NICM (nonischemic cardiomyopathy) (HCC) Left bundle branch block (LBBB) VT (ventricular tachycardia) (HCC) from Last 3 Months Results * DEVICE CHECK - REMOTE (08/03/2024 10:51 AM CDT) Anatomical Region Laterality Modality Other Narrative 08/07/2024 8:06 AM CDT [place] Unify Assura BI-V ICD implanted on 02/14/19 for NICM/CHF/LBBB. [facility]. Chronic RA/RV/LV leads are from 02/12/11. Routine DDDR ICD Remote. Transmission attached. Battery status 35%, 2.5-3.2 years remaining battery life to [place]. Stable Charge time and Shock impedance. Stable lead impedances, pacing, and sensing threshold. Presenting rhythm: AP/VS AP-15 %, INFORMATION TECHNOLOGY TEACHER-< 1 % (0) AT/AF episodes noted. (0) Ventricular tachy arrhythmias detected. Medication: ASA 81 mg, losartan 50 mg, metoprolol 25 mg, Crestor 40 mg, sotalol 120 mg Follow up: Office Pacemaker/ICD scheduled 10/25/24 at the [facility] [place] remote 6 months Olvin Smith, RN Jennifer Engle MD CV CARDIAC SERVICES PROCEDU RES Final Result from Last 3 Months Insurance MEDICARE [facility] MEDICARE [facility] MEDICARE SUPPLEMENT MEDICARE BLUE [facility] Care Teams Associate Professor Of Library Science Relationship Specialty Start Date End Date Hermilo Jacobsen MD PCP - General 08/14/16
--- OUTSIDE RECORDS SUMMARY | 2024-10-13 10:06 | XMS_ITS | Encounter Summary ---
Author Organization [facility] Address [address] [facility] [address] [place] [address] Care Team Providers Care Medical Art Therapist Name Role Phone Hermilo Jacobsen MD Primary Care Provider Encounter Details Date Type Department Care Team (Late st Contact Info) Description 08/18/2016 Orders Only [facility] ProviderKarli MD [address] [place] [address] Social History Tobacco Use Types Packs/Day Years Used Date Smoking Tobacco: Former Cigarettes Q uit: 05/17/1983 Alcohol Use Standard Drinks/Week Comments Yes 0 (1 standard drink = 0.6 oz pur e alcohol) Sex and Gender Information Value Date Recorded Sex Assigned at Not on file Legal Sex Male 2:25 PM INFRASTRUCTURE TECH Gender Identity Not on file Sexual Orientation [...] on filedocumented in this encounter Care Teams Medical Art Therapist Relationship Specialty Start Date End Date Hermilo Jacobsen MD PCP - General 3/31/17 documented as of this encounter
--- OUTSIDE RECORDS SUMMARY | 2024-10-13 10:06 | XMS_ITS | Referral Summary ---
Author Organization [facility] Address [address] [place] [address] Care Team Providers Care Police Crime Scene Technician Name Role Phone Hermilo Jacobsen MD Primary Care Provider Encounters Date Type Department Care Team Description 10/11/2024 Orders Only [facility] [address] [facility] [address] Donte Stanford III, MD Cardiac arrhythmia, unspecified cardiac arrhythmia type (Primary Dx); Atrial fibrillation, unspecified type (HCC) 08/02/2024 7:00 AM CDT Ancillary Procedure [facility] [address] [address] Presence of biventricular automatic cardioverter/defibril lator (AICD) (Primary Dx); NICM (nonischemic cardiomyopathy) (HCC); Left bundle branch block (LBBB); VT (ventricular tachycardia) (HCC) from Last 3 Months Allergies Active Allergy [...] (01/31/2019): Added automatically from request for surgery [id number] Assessment & Plan (10/20/2023 12:51 PM CDT): S/p ESCAPE WHEEL TOOTH CUTTER-D system implantation. LV lead non-functional and programmed [...] year Assessment & Plan (06/23/2023 11:42 AM [employer]): S/p ESCAPE WHEEL TOOTH CUTTER-D system with LV lead fracture. LV function remains generally preserved. He has mild HF symptoms but is quite functional, with no significant recent decline. We discussed indications for device revision with new LV lead. Given clinical stability, favor waiting and reassessing LV function. If there is decline, we would plan to revise his device. --Continue remote device f/u via [facility] --TTE as scheduled in September --F/u with me in October as scheduled Assessment & Plan (11/04/2022 11:23 AM CDT): S/p ESCAPE WHEEL TOOTH CUTTER-D system implantation. LV lead fracture, now programmed [...] BI-V ICD implanted on 02/14/19 for NICM/CHF/LBBB. [facility]. Chronic RA/RV/LV leads are from 02/12/11. VT (ventricular tachycardia) 11/25/2016 Assessment & Plan (10/20/2023 12:51 PM CDT): Stable, no recurrence. Tolerating sotalol. --Continue sotalol 120 mg BID Assessment & Plan (06/23/2023 11:42 AM [employer]): Stable/no events. --Continue sotalol 120 mg BID [...] Plan (11/25/2016 11:49 AM CDT): Status post ESCAPE WHEEL TOOTH CUTTER. Resolved Problems Problem Noted Date Diagnosed Date [...] on file Legal Sex Male 2:25 PM [employer] Gender Identity Not on file Sexual Orientation Not on file Last Filed Vital Signs Vital Sign Reading Time Taken Comments Blood Pressure 90/54 04/17/2024 9:30 AM [employer] Pulse 53 04/17/2024 9:30 AM [employer] Temperature 37 C (98.6 F) 05/14/2023 1:48 PM [employer] Respiratory Rate 18 05/14/2023 5:30 PM [employer] Oxygen Saturation 96% 04/17/2024 9:30 AM [employer] Inhaled Oxygen Concentration - - Weight 87.1 kg (192 lb) 04/17/2024 9:30 AM [employer] Height 182.9 cm (6') 04/17/2024 9:30 AM [employer] Body Mass Index 26.04 04/17/2024 9:30 AM [employer] Plan of Treatment Not on file Medical Devices Implanted Type Area Choir Teacher Device Identifier Shelf Expiration Date Model / Serial / Lot Icd ICD Chest [employer] [id number] Unify Assura Rf Telemetry Df4-Llh Is-1 Connector 40j - [id number] - [id number] Implanted:Qty: 1 on 02/14/2019 by Lexa Tapia MD at [facility] ICD [employer] [id number] 04/15/2020 [id number] / [id number] / Procedures Procedure Name Priority Date/Time Associated [...] ICD implanted on 02/14/19 for NICM/CHF/LBBB. [facility] Eng[facility]. Chronic RA/RV/LV leads are from 02/12/11. Routine DDDR ICD Remote. Transmission attached. Battery status 35%, 2.5-3.2 years remaining battery life to LEROY. Stable Charge time and Shock impedance. Stable lead impedances, pacing, and sensing threshold. Presenting rhythm: AP/VS AP-15 %, HOSPICE CARE CONSULTANT-< 1 % (0) AT/AF episodes noted. (0) Ventricular tachy arrhythmias detected. Medication: ASA 81 mg, losartan 50 mg, metoprolol 25 mg, Crestor 40 mg, sotalol 120 mg Follow up: Office Pacemaker/ICD scheduled 10/25/24 at the [facility] remote 6 months Olvin Smith, HELGA Jennifer Engle MD [facility] PROCEDU RES Final Result from Last 3 Months Insurance MEDICARE [facility] MEDICARE [employer] MEDICARE SUPPLEMENT MEDICARE [employer] Care Teams Police Crime Scene Technician Relationship Specialty Start Date End Date Hermilo Jacobsen MD PCP - General 08/14/16
--- OUTSIDE RECORDS SUMMARY | 2024-10-13 10:07 | XMS_ITS | Clinical Summary ---
Author Organization [facility] Address [address] [place] [address] Care Team Providers Care Oyster Culturist Name Role Phone Hermilo Jacobsen MD Primary Care Provider [phone] Allergies No known active allergies Medications sotalol [...] Encounters Date Type Department Care Team Description 10/05/2024 External Device Data ST[facility] ABSTRACTION Provider, Abstract 10/04/2024 External Device Data [facility] ABSTRACTION Provider, Abstract 10/03/2024 External Device Data [facility] ABSTRACTION Provider, Abstract [...] Description 02/01/2025 10:15 AM CDT Office Visit [facility] Oncology and H[facility]ology - [place] [address] [facility] [address] [place] [address] Maurice Lang MD [address] [place] [address] Health Maintenance Due Date Last [...] Discontinued Insurance MEDICARE PART A AND B [facility] MEDICARE PART A AND B BS SUPP Care Teams Oyster Culturist Relationship Specialty Start Date End Date Hermilo Jacobsen MD [address] [place] [address] PCP - General Family Practice 09/06/17
--- OUTSIDE RECORDS SUMMARY | 2024-10-13 10:07 | XMS_ITS | Encounter Summary ---
Author Organization [facility] Address [address] [facility] [address] [place] [address] Care Team Providers Care Apprentice Lineman Third Step Name Role Phone Hermilo Jacobsen MD Primary Care Provider + [phone] Hermilo Jacobsen MD Primary Care Provider + [phone] Encounter Details Date Type Department Care Team (Late st Contact Info) Description 06/09/2016 Orders Only [facility] ProviderKarli MD [address] [place] [address] Social History Tobacco Use Types Packs/Day Years Used Date Smoking Tobacco: Former Cigarettes Q uit: 05/17/1983 Alcohol Use Standard Drinks/Week Comments Yes 0 (1 standard drink = 0.6 oz pur e alcohol) Sex and Gender Information Value Date Recorded Sex Assigned at Not on file Legal Sex Male 2:25 PM TODDLER LEAD TEACHER Gender Identity Not on file Sexual Orientation [...] on filedocumented in this encounter Care Teams Apprentice Lineman Third Step Relationship Specialty Start Date End Date Hermilo Jacobsen MD PCP - General 08/14/16 Hermilo Jacobsen MD PCP - General 11/06/15 08/13/16 documented as of this encounter
--- OUTSIDE RECORDS SUMMARY | 2024-10-13 10:07 | XMS_ITS | Encounter Summary ---
Author Organization [facility] Address [address] [facility] [address] [place] [address] Care Team Providers Care Broadcast Operations Director Name Role Phone Hermilo Jacobsen MD Primary Care Provider + [phone] Hermilo Jacobsen MD Primary Care Provider + [phone] Encounter Details Date Type Department Care Team (Late st Contact Info) Description 05/20/2016 Orders Only [facility] ProviderKarli MD [address] [place] [address] Social History Tobacco Use Types Packs/Day Years Used Date Smoking Tobacco: Former Cigarettes Q uit: 05/17/1983 Alcohol Use Standard Drinks/Week Comments Yes 0 (1 standard drink = 0.6 oz pur e alcohol) Sex and Gender Information Value Date Recorded Sex Assigned at Not on file Legal Sex Male 2:25 PM MANAGER EMERGENCY DEPARTMENT Gender Identity Not on file Sexual Orientation [...] on filedocumented in this encounter Care Teams Broadcast Operations Director Relationship Specialty Start Date End Date Hermilo Jacobsen MD PCP - General 08/14/16 Hermilo Jacobsen MD PCP - General 11/06/15 08/13/16 documented as of this encounter
[2024-10-13 12:33] LABS: Toxigenic C. Diff NEGATIVE (NEGATIVE)
[2024-10-19 14:38] LABS: Immunoglobulin A 287 mg/dL (70-320); TTG IGA AB 241.5 U/mL
[2024-10-20 00:33] LABS: Pancreatic Elastase, Stool. 376 mcg/g (>200)
== END 2024-10-13 09:53 | disposition home or self-care (01) ==
LOC: ANHLAB 09:56
PROVIDERS: PCP Family Medicine; Referring Provider Nurse Practitioner Family; Visit Provider Internal Medicine Hematology & Oncology
DX: K90.0 Celiac disease (principal)
CPT/HCPCS: 36415; 82653; 82784; 87045; 87177; 87209; 87269; 87427; 87449; 87493

== ENCOUNTER 2024-11-24 01:05 | Day surgery (SDC) | payer MEDICARE, SELFPAY ==
[2024-11-08 09:49] VITALS: BMI 26.0
--- OUTSIDE RECORDS SUMMARY | 2024-11-24 01:08 | XMS_ITS | Clinical Summary ---
Author Organization [facility] C Address [address] [facility] [place] [address] Care Team Providers Care Creel Operator Name Role Phone Hermilo Jacobsen MD [...] (01/31/2019): Added automatically from request for surgery [id number] Assessment & Plan (10/25/2024 11:26 AM CDT): Chronic, stable. S/p DRY STARCH OPERATOR-D system implantation. LV lead nonfunctional and programmed off. LVE stable/normal. Recommend observation for now. Favor LV lead revision at time of generator replacement. Sooner if pt develops new symptoms or EF decline. --Continue remote device monitoring Assessment & Plan (10/20/2023 12:51 PM CDT): S/p DRY STARCH OPERATOR-D system implantation. LV lead non-functional and [...] year Assessment & Plan (06/23/2023 11:42 AM SUPERVISOR RICE MILLING): S/p DRY STARCH OPERATOR-D system with LV lead fracture. LV function remains generally preserved. He has mild HF symptoms but is quite functional, with no significant recent decline. We discussed indications for device revision with new LV lead. Given clinical stability, favor waiting and reassessing LV function. If there is decline, we would plan to revise his device. --Continue remote device f/u via [employer] --TTE as scheduled in September --F/u with me in October as scheduled Assessment & Plan (11/04/2022 11:23 AM CDT): S/p DRY STARCH OPERATOR-D system implantation. LV lead fracture, now [...] BI-V ICD implanted on 02/14/19 for NICM/CHF/LBBB. [facility]. Chronic RA/RV/LV leads are from 02/12/11. VT (ventricular tachycardia) 11/25/2016 Assessment & Plan (10/25/2024 11:24 AM CDT): Chronic, stable. No VT events. Well suppressed on sotalol. ECG personally interpreted- Qtc acceptable for ongoing sotalol use. --Continue sotalol 120 mg BID Assessment & Plan (10/20/2023 12:51 PM CDT): Stable, no recurrence. Tolerating sotalol. --Continue sotalol 120 mg BID Assessment & Plan (06/23/2023 11:42 AM SUPERVISOR RICE MILLING): Stable/no events. --Continue sotalol 120 mg BID [...] Plan (11/25/2016 11:49 AM CDT): Status post DRY STARCH OPERATOR. Resolved Problems Problem Noted Date Diagnosed [...] Encounters Date Type Department Care Team Description 10/25/2024 11:00 AM CDT [facility] [address] [place] [phone] Donte Stanford III, MD NICM (nonischemic cardiomyopathy) (HCC) (Primary Dx); VT (ventricular tachycardia) (HCC); ICD (implantable cardioverter-defibril lator) in place; Cardiac arrhythmia, unspecified cardiac arrhythmia type 10/25/2024 10:45 AM CDT Ancillary Procedure [facility] [address] [place] [phone] NICM (nonischemic cardiomyopathy) (HCC) (Primary Dx); ICD (implantable cardioverter-defibril lator) in place 10/20/2024 Results Follow-Up [facility] [address] [place] [phone] Donte Stanford III, MD Transthoracic Echo (TTE) Complete W Doppler/CF 10/18/2024 6:45 AM CDT - 10/18/2024 11:59 PM CDT Hospital Encounter [facility] OP Cardiac Testing [address] [facility] [address] [place] [address] Cardiac arrhythmia, unspecified cardiac arrhythmia type; Atrial fibrillation, unspecified type (HCC) Discharge Disposition: Discharge to home or self care 10/11/2024 Orders Only [facility] [address] [place] [phone] Donte Stanford III, MD Cardiac arrhythmia, unspecified cardiac arrhythmia type (Primary Dx); Atrial fibrillation, unspecified type (HCC) from Last 3 Months Immunizations Immunization [...] on file Legal Sex Male 2:25 PM SUPERVISOR RICE MILLING Gender Identity Not on file Sexual Orientation Not on file Obstetrics History Last Filed Vital Signs Vital Sign Reading Time Taken Comments Blood Pressure 110/70 10/25/2024 11:11 AM CDT Pulse 51 10/25/2024 11:11 AM CDT Temperature 37 C (98.6 F) 05/14/2023 1:48 PM SUPERVISOR RICE MILLING Respiratory Rate 18 05/14/2023 5:30 PM SUPERVISOR RICE MILLING Oxygen Saturation 96% 10/25/2024 11:11 AM CDT Inhaled Oxygen Concentration - - Weight 86.2 kg (190 lb) 10/25/2024 11:11 AM CDT Height 182.9 cm (6' 0.01) 10/25/2024 11:11 AM C DT Body Mass Index 25.76 10/25/2024 11:11 AM CDT Plan of Treatment Health Maintenance Due Date Last Done Comments Depression Screening 1945 Fall Risk Assessment 1945 Hepatitis C Screening 1945 Hepatitis B Screening 08/30/1965 Abdominal Aortic Aneurysm (A AA) Screen 08/30/2012 Well Visit 65+ 08/30/2012 Pneumococcal vaccine 65+ (2 of 2 - PPSV23) 10/19/2019 10/18/2018 Covid-19 Vaccine (3 - 2023-2 5 season) 2024 07/26/2020, 06/28/2020 Influenza Vaccine (#1) 2025 , 02/23/2022, 02/05/2020, Additional history exists DTaP/Tdap/Td Vaccine (2 - Td or Tdap) 10/18/2028 10/18/2018 Zoster Vaccine Completed 02/21/2020, 04/14/2019 Medical Devices Implanted Type Area Sample Maker Device Identifier Shelf Expiration Date Model / Serial / Lot Icd ICD Chest [employer] [id number] Unify Assura Rf Telemetry [facility] Is-1 Connector 40j - [id number] - [id number] Implanted:Qty: 1 on 02/14/2019 by Lexa Tapia MD at [facility] ICD [employer] [id number] 04/15/2020 [id number] / [id number] / Procedures Procedure Name Priority Date/Time Associated Diagnosis Comments ECG 12-LEAD Routine 10/25/2024 11:12 AM CDT Cardiac arrhythmia, unspecified cardiac arrhythmia type DEVICE CHECK - IN OFFICE Routine 10/25/2024 10:48 AM CDT ICD (implantable cardioverter-defibr illator) in place TRANSTHORACIC ECHO (TTE) COMPLETE W DOPPLER/CF WO CONTRAST Routine 10/18/2024 7:43 AM CDT Cardiac arrhythmia, unspecified cardiac arrhythmia type Atrial fibrillation, unspecified type (HCC) from Last 3 Months Results * ECG 12 lead (10/25/2024 11:12 AM CDT) Donte Stanford III, MD ECG ORDERABLES Fin al Result * DEVICE CHECK - IN OFFICE (10/25/2024 10:48 AM CDT) Anatomical Region Laterality Modality Other Narrative 10/26/2024 4:02 PM CDT Table formatting from the original result was not included. ICD CHECK (IN OFFICE) Patient ID: Yehuda Palm is a 79 y.o. male. This patient received a Weathers ICD. They had a routine in office device interrogation on 10/25/24 Device implant indications: Nonischemic cardiomyopathy, CHF, LBBB Interrogation of the patient's device demonstrates the following: Presenting EGM: A sense V sense @ 47 bpm Underlying Rhythm: A sense V sense in the 40s Original Device Settings Right Atrium Right Ventricle Sensitivity (mV) 1.0 mV Auto mV Pacing Outputs 1.625 V @ 0.5 ms 2.125 V @ 1.0 ms Testing Measurements Right Atrium Right Ventricle Sensitivity (mV) >5 mV 3.2 mV Impedence (Ohms) 290 ohms 260 ohms High Voltage Impedence 49 ohms Pace Threshold 0.62 V @ 0.5 ms 1.62 V @ 1.0 ms Pacing % 18 % <1 % Battery Status: 2.4-3 years to LEROY with Charge Time 9.6 seconds Episodes last 90 days/Comments: AF [place] 0% No new ventricular events NORMAL DEVICE FUNCTION PROGRAMMED MEDICATIONS: Anti-coagulant(s): Aspirin 81 mg Anti-arrhythmic(s): Sotalol 120 mg twice a day, Lopressor 25 mg twice a day PLAN: 1) Weathers ICD evaluation. 2) Weathers remote transmission scheduled in 3 months. 3) Programming appropriate for device measurements Lidia Elizabeth RN Donte Stanford III, MD CV CARDIAC SERVICES PROCEDURES Final Result * TRANSTHORACIC ECHO (TTE) COMPLETE W DOPPLER/CF WO CONTRAST (10/18/2024 7:43 AM CDT) Estimated EF 55-60 % CONS SCIMAGE EF Mod BP 61 % CONS SCIMAGE Anatomical Region Laterality Modality Ultrasound 10/18/2024 6:44 AM CDT Narrative 10/18/2024 10:15 AM CDT [facility] Testing [facility] [address] [place] [address] ECHOCARDIOGRAM Patient Name: YEHUDA PALM : 1945 (79y 1m) Gender: M Study Date: 10/18/2024 06:44:49 AM Ht(Inch): 72 Wt(Lb): 192.02 BSA: 2.1 Draw Machine Operator: ERASMO Location: OPT Order Provider: DONTE STANFORD BMI: 26.04 BP: 90/54 Ref Provider: DONTE STANFORD - PROCEDURES: Echocardiographic Report: Transthoracic Echocardiogram with complete 2D, M-Mode, Spectral and Color Flow Doppler examination. INDICATIONS: I49.9 Cardiac arrhythmia, unspecified and I48.91 Unspecified atrial fibrillation. MEASUREMENTS: 2D/MM Value Range Doppler Value Range IVSd 2D 1.35 cm [ 0.60 - 1.00 ] AV Peak Bernard 1.84 m/s [ 1.00 - 1.70 ] LVIDd 2D 4.69 cm [ 4.20 - 5.80 ] AV Peak PG 13.5 mmHg LVIDs 2D 3.02 cm [ 2.50 - 4.00 ] AV Mean PG 8.6 mmHg LVPWd 2D 1.13 cm [ 0.60 - 1.00 ] AV VTI 51.8 cm EF Mod BP 61 % [ 52 - 72 ] NASRIN V max 1.9 cm2 Estimated EF 55-60 % NASRIN VTI 1.7 cm2 LA Dimen 2D 4.90 cm [ 3.00 - 4.00 ] LVOT Peak Bernard 0.97 m/s [ 0.70 - 1.10 ] AoR Diam 2D 3.20 cm [ 3.10 - 3.70 ] LVOT Diam 2.1 cm AoR Diam 2D Index 1.52 LVOT Peak PG 3.8 mmHg RA Volume 17.00 ml LVOT VTI 25.0 cm TAPSE 2.00 cm [ 1.71 - 5.00 ] MV Peak PG 4.5 mmHg MV Mean PG 1.9 mmHg MV E Peak Bernard 0.7 m/s [ 0.6 - 1.3 ] MV A Peak Bernard 1.0 m/s [ 1.0 - 1.2 ] MV PHT 132.5 ms [ 20.0 - 100.0 ] MV Decel Time 291.9 ms [ 104.0 - 258.0 ] MVA PHT 1.7 ms MV E/A Ratio 0.7 TR Peak Bernard 2.6 m/s [ 1.0 - 2.8 ] TR Peak PG 27 mmHg RVSP 29.5 mmHg [ 10.0 - 36.0 ] RA Pressure 3.0 mmHg PV Peak PG 7.5 mmHg Lat E` Bernard 0.07 m/s [ 0.10 - 0.15 ] Sept E' Bernard 0.05 m/s [ 0.08 - 0.15 ] E/E` 10.00 RV S' 0.10 m/s 2D/MM Value Range Doppler Value Range - FINDINGS: Study Quality: The study was technically adequate. BP: Blood pressure: 90/54 mmHg. Left Ventricle: Normal global and regional left ventricular systolic function. Ejection Fraction (Simpsons) is measured at 61 %. Ejection Fraction is estimated at 55-60 %. Diastolic indices overall most consistent with Grade I diastolic dysfunction (impaired myocardial relaxation without elevated filling pressures). Normal left ventricular cavity size. Mild concentric left ventricular hypertrophy. Right Ventricle: Normal right ventricular systolic function. Normal right ventricular size. Left Atrium: There is mild enlargement of the left atrium. Right Atrium: The right atrium is normal in size. Atrial Septum: Normal appearing atrial septum. Mitral Valve: Normal appearance of the mitral valve leaflets. Mitral stenosis is absent. Mild mitral valve regurgitation. Aortic Valve: Aortic valve appears tricuspid in configuration. Aortic cusps appear mildly calcified. There is mildly reduced aortic valve cusp separation. Mild aortic stenosis. Trace aortic valve regurgitation. Tricuspid Valve: Normal appearance of the tricuspid leaflets. Trace tricuspid regurgitation. Normal right ventricular systolic pressure. Pulmonic Valve: Normal appearance and function of the pulmonic valve. Pericardium: No significant pericardial effusion. Pleural Effusion: There is no apparent pleural effusion. Aortic Root and Aorta: Normal caliber aortic root. Aortic Arch: The aortic arch is poorly visualized. IVC: Normal appearance of the inferior vena cava. CONCLUSIONS: 1. Normal global and regional left ventricular systolic function. Ejection Fraction (Simpsons) is measured at 61 %. Ejection Fraction is estimated at 55-60 %. Diastolic indices overall most consistent with Grade I diastolic dysfunction (impaired myocardial relaxation without elevated filling pressures). Normal left ventricular cavity size. Mild concentric left ventricular hypertrophy. 2. Normal right ventricular systolic function. Normal right ventricular size. 3. There is mild enlargement of the left atrium. 4. Aortic valve appears tricuspid in configuration. Aortic cusps appear mildly calcified. There is mildly reduced aortic valve cusp separation. Mild aortic stenosis. Trace aortic valve regurgitation. Electronically Signed By: Jorge Macario MD [facility] 10/18/2024 10:14:48 AM CDT Procedure Note Jorge Macario MD - 10/18/2024 [facility] Cardiac Testing [facility] [address] [place] [id number] ECHOCARDIOGRAM Patient Name: YEHUDA PALM : 1945 (79y 1m) Gender: M Study Date: 10/18/2024 06:44:49 AM Ht(Inch): 72 Wt(Lb): 192.02 BSA: 2.1 Draw Machine Operator: ERASMO Location: OPT Order Provider: DONTE STANFORD BMI: 26.04 BP: 90/54 Ref Provider: DONTE STANFORD - PROCEDURES: Echocardiographic Report: Transthoracic Echocardiogram with complete 2D,M-Mode, Spectral and Color Flow Doppler examination. INDICATIONS: I49.9 Cardiac arrhythmia, unspecified and I48.91 Unspecified atrialfibrillation. MEASUREMENTS: 2D/MM Value Range Doppler ValueRange IVSd 2D 1.35 cm [ 0.60 - 1.00 ] AV Peak Bernard 1.84m/s [ 1.00 - 1.70 ] LVIDd 2D 4.69 cm [ 4.20 - 5.80 ] AV Peak PG 13.5mmHg LVIDs 2D 3.02 cm [ 2.50 - 4.00 ] AV Mean PG 8.6mmHg LVPWd 2D 1.13 cm [ 0.60 - 1.00 ] AV VTI 51.8cm EF Mod BP 61 % [ 52 - 72 ] NASRIN V max 1.9cm2 Estimated EF 55-60 % NASRIN VTI 1.7cm2 LA Dimen 2D 4.90 cm [ 3.00 - 4.00 ] LVOT Peak Bernard 0.97m/s [ 0.70 - 1.10 ] AoR Diam 2D 3.20 cm [ 3.10 - 3.70 ] LVOT Diam 2.1cm AoR Diam 2D Index 1.52 LVOT Peak PG 3.8mmHg RA Volume 17.00 ml LVOT VTI 25.0cm TAPSE 2.00 cm [ 1.71 - 5.00 ] MV Peak PG 4.5mmHg MV Mean PG 1.9 mmHg MV E Peak Bernard 0.7 m/s [ 0.6 - 1.3 ] MV A Peak Bernard 1.0 m/s [ 1.0 - 1.2 ] MV PHT 132.5 ms [ 20.0 - 100.0 ] MV Decel Time 291.9 ms [ 104.0 - 258.0 ] MVA PHT 1.7 ms MV E/A Ratio 0.7 TR Peak Bernard 2.6 m/s [ 1.0 - 2.8 ] TR Peak PG 27 mmHg RVSP 29.5 mmHg [ 10.0 - 36.0 ] RA Pressure 3.0 mmHg PV Peak PG 7.5 mmHg Lat E` Bernard 0.07 m/s [ 0.10 - 0.15 ] Sept E' Bernard 0.05 m/s [ 0.08 - 0.15 ] E/E` 10.00 RV S' 0.10 m/s 2D/MM Value Range Doppler ValueRange - FINDINGS: Study Quality: The study was technically adequate. BP: Blood pressure: 90/54 mmHg. Left Ventricle: Normal global and regional left ventricular systolicfunction. Ejection Fraction (Simpsons) is measured at 61 %. Ejection Fraction is estimated at55-60 %. Diastolic indices overall most consistent with Grade I diastolicdysfunction (impaired myocardial relaxation without elevated filling pressures). Normal leftventricular cavity size. Mild concentric left ventricular hypertrophy. Right Ventricle: Normal right ventricular systolic function. Normal rightventricular size. Left Atrium: There is mild enlargement of the left atrium. Right Atrium: The right atrium is normal in size. Atrial Septum: Normal appearing atrial septum. Mitral Valve: Normal appearance of the mitral valve leaflets. Mitralstenosis is absent. Mild mitral valve regurgitation. Aortic Valve: Aortic valve appears tricuspid in configuration. Aorticcusps appear mildly calcified. There is mildly reduced aortic valve cusp separation. Mildaortic stenosis. Trace aortic valve regurgitation. Tricuspid Valve: Normal appearance of the tricuspid leaflets. Tracetricuspid regurgitation. Normal right ventricular systolic pressure. Pulmonic Valve: Normal appearance and function of the pulmonic valve. Pericardium: No significant pericardial effusion. Pleural Effusion: There is no apparent pleural effusion. Aortic Root and Aorta: Normal caliber aortic root. Aortic Arch: The aortic arch is poorly visualized. IVC: Normal appearance of the inferior vena cava. CONCLUSIONS: 1. Normal global and regional left ventricular systolic function. EjectionFraction (Simpsons) is measured at 61 %. Ejection Fraction is estimated at 55-60 %.Diastolic indices overall most consistent with Grade I diastolic dysfunction(impaired myocardial relaxation without elevated filling pressures). Normal left ventricularcavity size. Mild concentric left ventricular hypertrophy. 2. Normal right ventricular systolic function. Normal right ventricularsize. 3. There is mild enlargement of the left atrium. 4. Aortic valve appears tricuspid in configuration. Aortic cusps appearmildly calcified. There is mildly reduced aortic valve cusp separation. Mild aorticstenosis. Trace aortic valve regurgitation. Electronically Signed By: Jorge Macario MD [facility] 10/18/2024 10:14:48 AM CDT Donte Stanford III, MD CV ECHO PROCEDURES Final Result from Last 3 Months Insurance MEDICARE [facility] MEDICARE BLUE CROSS MEDICARE SUPPLEMENT MEDICARE [facility] Care Teams Creel Operator Relationship Specialty Start Date End Date Hermilo Jacobsen MD PCP - General 08/14/16
--- OUTSIDE RECORDS SUMMARY | 2024-11-24 01:08 | XMS_ITS | Referral Summary ---
Author Organization [facility] C Address [address] [facility] [place] [address] Care Team Providers Care Mash Tub Cooker Name Role Phone Hermilo Jacobsen MD Primary Care Provider Encounters Date Type Department Care Team Description 10/25/2024 11:00 AM CDT Office Visit [facility] [address] [place] [phone] Donte Stanford III, MD NICM (nonischemic cardiomyopathy) (HCC) (Primary Dx); VT (ventricular tachycardia) (HCC); ICD (implantable cardioverter-defibril lator) in place; Cardiac arrhythmia, unspecified cardiac arrhythmia type 10/25/2024 10:45 AM CDT Ancillary Procedure [facility] [address] [place] [phone] NICM (nonischemic cardiomyopathy) (HCC) (Primary Dx); ICD (implantable cardioverter-defibril lator) in place 10/20/2024 Results Follow-Up [facility] [address] [place] [address] [address], [place] [phone] Donte Stanford III, MD Transthoracic Echo (TTE) Complete W Doppler/CF 10/18/2024 6:45 AM CDT - 10/18/2024 11:59 PM CDT Hospital Encounter [facility] OP Cardiac Testing [address] [facility] [address] [place] [address] Cardiac arrhythmia, unspecified cardiac arrhythmia type; Atrial fibrillation, unspecified type (HCC) Discharge Disposition: Discharge to home or self care 10/11/2024 Orders Only Ar[facility] Center [address] [facility] [address] [place] [address] Donte Stanford III, MD Cardiac arrhythmia, unspecified cardiac arrhythmia type (Primary Dx); Atrial fibrillation, unspecified type (HCC) from Last 3 Months Allergies Active [...] (01/31/2019): Added automatically from request for surgery [id number] Assessment & Plan (10/25/2024 11:26 AM CDT): Chronic, stable. S/p CRM MARKETING ANALYST-D system implantation. LV lead nonfunctional and programmed off. LVE stable/normal. Recommend observation for now. Favor LV lead revision at time of generator replacement. Sooner if pt develops new symptoms or EF decline. --Continue remote device monitoring Assessment & Plan (10/20/2023 12:51 PM CDT): S/p CRM MARKETING ANALYST-D system implantation. LV lead non-functional and programmed [...] year Assessment & Plan (06/23/2023 11:42 AM ENCODING MACHINE OPERATOR): S/p CRM MARKETING ANALYST-D system with LV lead fracture. LV function remains generally preserved. He has mild HF symptoms but is quite functional, with no significant recent decline. We discussed indications for device revision with new LV lead. Given clinical stability, favor waiting and reassessing LV function. If there is decline, we would plan to revise his device. --Continue remote device f/u via [employer] --TTE as scheduled in September --F/u with me in October as scheduled Assessment & Plan (11/04/2022 11:23 AM CDT): S/p CRM MARKETING ANALYST-D system implantation. LV lead fracture, now programmed [...] BI-V ICD implanted on 02/14/19 for NICM/CHF/LBBB. [facility]. Chronic RA/RV/LV leads are from [...] BID Assessment & Plan (06/23/2023 11:42 AM ENCODING MACHINE OPERATOR): Stable/no events. --Continue sotalol 120 mg BID [...] Plan (11/25/2016 11:49 AM CDT): Status post CRM MARKETING ANALYST. Resolved Problems Problem Noted Date Diagnosed Date [...] on file Legal Sex Male 2:25 PM ENCODING MACHINE OPERATOR Gender Identity Not on file Sexual Orientation Not on file Last Filed Vital Signs Vital Sign Reading Time Taken Comments Blood Pressure 110/70 10/25/2024 11:11 AM CDT Pulse 51 10/25/2024 11:11 AM CDT Temperature 37 C (98.6 F) 05/14/2023 1:48 PM ENCODING MACHINE OPERATOR Respiratory Rate 18 05/14/2023 5:30 PM ENCODING MACHINE OPERATOR Oxygen Saturation 96% 10/25/2024 11:11 AM CDT Inhaled Oxygen Concentration - - Weight 86.2 kg (190 lb) 10/25/2024 11:11 AM CDT Height 182.9 cm (6' 0.01) 10/25/2024 11:11 AM C DT Body Mass Index 25.76 10/25/2024 11:11 AM CDT Plan of Treatment Not on file Medical Devices Implanted Type Area Kosher Butcher Device Identifier Shelf Expiration Date Model / Serial / Lot Icd ICD Chest [employer] [id number] Unify Assura Rf Telemetry D[employer]-Ll Is-1 Connector 40j - [id number] - [id number] Implanted:Qty: 1 on 02/14/2019 by Lexa Tapia MD at [facility] ICD [employer] [id number] 04/15/2020 [id number] / [id number] / Procedures Procedure Name Priority Date/Time Associated [...] 9.6 seconds Episodes last 90 days/Comments: AF [place] 0% No new ventricular events NORMAL DEVICE [...] AM CDT Narrative 10/18/2024 10:15 AM CDT [facility] Card[facility] Testing [facility] [address] [place] [id number] ECHOCARDIOGRAM Patient Name: YEHUDA PALM : 1945 (79y 1m) Gender: M Study Date: 10/18/2024 06:44:49 AM Ht(Inch): 72 Wt(Lb): 192.02 BSA: 2.1 Manager Regulatory: ERASMO Location: OPT Order Provider: DONTE STANFORD [...] regurgitation. Electronically Signed By: Jorge Macario MD [facility] 10/18/2024 10:14:48 AM CDT Procedure Note Jorge Macario MD - 10/18/2024 [facility] [address] [place] [address] ECHOCARDIOGRAM Patient Name: YEHUDA PALM : 1945 (79y 1m) Gender: M Study Date: 10/18/2024 06:44:49 AM Ht(Inch): 72 Wt(Lb): 192.02 BSA: 2.1 Manager Regulatory: ERASMO Location: OPT Order Provider: DONTE STANFORD [...] regurgitation. Electronically Signed By: Jorge Macario MD [facility] 10/18/2024 10:14:48 AM CDT Donte Stanford III, MD CV ECHO PROCEDURES Final Result from Last 3 Months Insurance MEDICARE [facility] MEDICARE BLUE CROSS MEDICARE SUPPLEMENT MEDICARE [facility] Care Teams Mash Tub Cooker Relationship Specialty Start Date End Date Hermilo Jacobsen MD [facility] - General 08/14/16
--- OUTSIDE RECORDS SUMMARY | 2024-11-24 01:08 | XMS_ITS | Encounter Summary ---
Author Organization [facility] Address [address] [place] [address] Care Team Providers Care Chief Design Engineer Name Role Phone Hermilo Jacobsen MD Primary Care Provider + [phone] Hermilo Jacobsen MD Primary Care Provider + [phone] Encounter Details Date Type Department Care Team (Late st Contact Info) Description 05/20/2016 Orders Only [facility] ProviderKarli MD [address] [place] [id number] Social History Tobacco Use Types Packs/Day Years Used Date Smoking Tobacco: Former Cigarettes Q uit: 05/17/1983 Alcohol Use Standard Drinks/Week Comments Yes 0 (1 standard drink = 0.6 oz pur e alcohol) Sex and Gender Information Value Date Recorded Sex Assigned at Not on file Legal Sex Male 2:25 PM RESIN MIXER Gender Identity Not on file Sexual Orientation [...] on filedocumented in this encounter Care Teams Chief Design Engineer Relationship Specialty Start Date End Date Hermilo Jacobsen MD PCP - General 08/14/16 Hermilo Jacobsen MD PCP - General 11/06/15 08/13/16 documented as of this encounter
--- OUTSIDE RECORDS SUMMARY | 2024-11-24 01:08 | XMS_ITS | Encounter Summary ---
Author Organization [facility] Address [address] [facility] [address] [place] [address] Care Team Providers Care Hospital Orderly Name Role Phone Hermilo Jacobsen MD Primary Care Provider Encounter Details Date Type Department Care Team (Late st Contact Info) Description 08/18/2016 Orders Only [facility] ProviderKarli MD [address] [place] [address] Social History Tobacco Use Types Packs/Day Years Used Date Smoking Tobacco: Former Cigarettes Q uit: 05/17/1983 Alcohol Use Standard Drinks/Week Comments Yes 0 (1 standard drink = 0.6 oz pur e alcohol) Sex and Gender Information Value Date Recorded Sex Assigned at Not on file Legal Sex Male 2:25 PM ICE PULLER Gender Identity Not on file Sexual Orientation [...] on filedocumented in this encounter Care Teams Hospital Orderly Relationship Specialty Start Date End Date Hermilo Jacobsen MD PCP - General 08/14/16 documented as of this encounter
--- OUTSIDE RECORDS SUMMARY | 2024-11-24 01:08 | XMS_ITS | Clinical Summary ---
Author Organization [facility] Address [address] [place] [address] Care Team Providers Care Surveillance System Monitor Name Role Phone Hermilo Jacobsen MD Primary Care Provider [phone] Allergies No known active allergies Medications sotalol [...] Encounters Date Type Department Care Team Description 10/31/2024 External Device Data STL ABSTRACTION Provider, Abstract 10/20/2024 Orders Only [facility] [address] [place] [address] Maurice Lang MD 10/18/2024 Orders Only [facility] [address] [place] [address] Scanning, Provider 10/05/2024 External Device Data ST[facility] ABSTRACTION Provider, [...] Years Used Date Smoking Tobacco: Former Cigarettes 1982 Tobacco Cessation:Counseling Given: Not Answered Alcohol [...] Description 02/01/2025 10:15 AM CDT Office Visit [facility] [address] [facility] [address] [place] [address] Maurice Lang MD [address] [facility] [address] [place] [address] Health Maintenance Due Date Last Done Comments PNEUMOCOCCAL VACCINE 50+ YEA RS (2 of 2 - PPSV23) 10/19/2019 10/18/2018 RSV VACCINE (60+ or ) (1 - 1-dose 75+ series) 08/30/2022 COVID-19 Vaccine (3 - 2023-2 5 season) 2024 07/26/2020, 06/28/2020 INFLUENZA VACCINE (#1) 2024 0, 03/30/2019, 02/05/2018, Additional history exists DTAP/TDAP/TD VACCINES (2 - T d or Tdap) 10/18/2028 10/18/2018 ZOSTER VACCINE Completed 02/21/2020, 04/14/2019 COLORECTAL SCREENING Discontinued 04/15/2020 Colorectal Cancer Screening Discontinued FIT-DNA Q 3 years Discontinued FIT/FOBT Q 1 year Discontinued Flex Sig/CT Colonography Q 5 years Discontinued Procedures Procedure Name Priority Date/Time Associated Diagnosis Comments C DIFFICILE ANTIGEN AND TOXIN Routine 10/13/2024 11:54 AM CDT OVA AND PARASITE SCREEN Routine 10/13/2024 11:03 AM CDT from Last 3 Months Results * C DIFFICILE ANTIGEN AND TOXIN (10/13/2024 11:54 AM CDT) Stool Maurice Lang MD MICRO - GEN ORDERABLES COM Isabell l Result * OVA AND PARASITE SCREEN (10/13/2024 11:03 AM CDT) Stool STOOL SPECIMEN / Unknown Provider Scanning MICROBIOLOGY - GENERAL ORDERAB LES Final Result from Last 3 Months Insurance [facility] SUPP MEDICARE PART A AND B [facility] SUPP Care Teams Surveillance System Monitor Relationship Specialty Start Date End Date Hermilo Jacobsen MD [address] [place] [address] PCP - General Family Practice 09/06/17
--- OUTSIDE RECORDS SUMMARY | 2024-11-24 01:08 | XMS_ITS | Encounter Summary ---
Author Organization [facility] Address [address] [facility] [address] [place] [address] Care Team Providers Care Piano Maker Name Role Phone Hermilo Jacobsen MD Primary Care Provider [phone] Hermilo Jacobsen MD Primary Care Provider + [phone] Encounter Details Date Type Department Care Team (Late st Contact Info) Description 06/09/2016 Orders Only [facility] ProviderKarli MD [address] [place] [address] Social History Tobacco Use Types Packs/Day Years Used Date Smoking Tobacco: Former Cigarettes Q uit: 05/17/1983 Alcohol Use Standard Drinks/Week Comments Yes 0 (1 standard drink = 0.6 oz pur e alcohol) Sex and Gender Information Value Date Recorded Sex Assigned at Not on file 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
--- OUTSIDE RECORDS SUMMARY | 2024-11-24 01:08 | XMS_ITS | Clinical Summary ---
Author Organization [facility] Address [address] [place] [address] Care Team Providers Care Lithograph Printer Name Role Phone Unavailable Primary Care Provider [...] this topic Medical Devices Implanted Type Area Loan Counselor Device Identifier Shelf Expiration Date Model / Serial / Lot Ra Lead Implant-2010 Implanted: (Quantity not on file) Lead Implant [employer] 5076 / [id number] / Rv Lead Implant-2010 Implanted: (Quantity not on file) Lead Implant [employer] 7121Q/65 / [id number] / Lv Lead- 1 Implanted: (Quantity not on file) Lead Implant [employer] 1258T/86 / [id number] / Pacemaker-02/14/2019 Implanted:05/2018 by Lexa Tapia MD (Quantity not on file) Pacemaker [employer] - [facility] [employer] [id number] / [id number] /
[2024-11-24 08:55] VITALS: BP 124/74; PULSE 66; RESP 20; TEMP 36.3; O2SAT 99; BMI 24.7
--- NOTE | 2024-11-24 09:06 | P.PNAN_ITS ---
Anes - Initial Pre Proc Eval Procedure: Operation Date: 11/24/24 10:00 Proposed Procedures p Colonoscopy - Joce Puga MD s Esophagogastroduodenoscopy - Joce Puga MD Date/Time: 11/24/24 09:06 Surgeon: Joce Puga MD Pre Op Diagnosis: Diarrhea, unspecified,Personal Hx of colon polyps Patient Data Age: 79 Gender: M Height: 1.83 m Weight: 82.8 kg Last Vital Signs Temp 36.3 C L 11/24/24 08:55 Pulse 66 11/24/24 08:55 Resp 20 11/24/24 08:55 BP 124/74 11/24/24 08:55 Pulse Ox 99 11/24/24 08:55 O2 Del Method Room Air 11/24/24 08:55 Allergies Allergy/AdvReac Type Severity Reaction Status Date / Time nitroglycerin AdvReac Severe Loss of Verified 11/24/24 08:53 Consciousness Home Medications ?Medication ?Instructions ?Recorded ?Confirmed ?Type metoprolol tartrate 25 mg tablet 25 mg PO BID 06/23/19 11/24/24 History sotalol 120 mg tablet 120 mg PO Q12H 06/23/19 11/24/24 History Lactobacillus rhamnosus GG 10 1 cap PO DAILY 05/21/23 11/24/24 History billion cell capsule (Culturelle) aspirin 81 mg capsule 81 mg PO DAILY 05/21/23 11/24/24 History losartan 50 mg tablet 50 mg PO BID #1 tablet 05/21/23 11/24/24 Rx rosuvastatin 20 mg tablet 40 mg (2 x 20 mg) .Route .COMPLEX 05/21/23 11/24/24 Rx #90 tabs vitamin E (dl, acetate) 180 mg 180 mg PO DAILY 05/21/23 11/24/24 History (400 unit) capsule cyanocobalamin (vitamin B-12) 500 250 mcg PO .COMPLEX 03/14/24 11/24/24 History mcg tablet (Vitamin B-12) allopurinol 300 mg tablet See Rx Instructions .Route 07/05/24 11/24/24 Rx .COMPLEX #90 tabs escitalopram oxalate 10 mg tablet 10 mg PO DAILY #90 tabs 10/12/24 11/24/24 Rx (Lexapro) memantine 10 mg tablet (Namenda) 10 mg PO BID #180 tabs 10/16/24 11/24/24 Rx memantine 5 mg-10 mg tablets in a See Rx Instructions PO PER PKG DIR 10/16/24 11/24/24 Rx dose pack (Namenda Titration Nino) #49 ea meloxicam 15 mg tablet See Rx Instructions .Route 10/30/24 11/24/24 Rx .COMPLEX #30 tabs scmvaqcodepi-ozhnvij-nuejx acid 1 tablet PO DAILY 11/08/24 11/24/24 History 400 mcg-lutein 250 mcg chewable tablet (Centrum Silver) omega 3 350 mg-dha 235 mg-epa 90 1 cap PO DAILY 11/08/24 11/24/24 History mg-fish oil 597 mg capsule,delay rel ([place]-3) Patient hx anesthesia problems: none Family hx anesthesia problems: none Results Review: All pre-operative results and documents have been reviewed as part of the pre- operative evaluation. [facility] Past Medical History Medical History Vascular dementia Diarrhea Hereditary hemochromatosis Presence of combination internal cardiac defibrillator (ICD) and pacemaker MCI (mild cognitive impairment) Memory change Medication reaction Medial knee pain History of meniscal tear Fatty liver Abnormal results of liver function studies History of adenomatous polyp of colon Overweight (BMI 25.0-29.9) BMI 28.0-28.9,adult Celiac disease Colon cancer screening Dyspnea on exertion Cardiomyopathy Need for pneumococcal vaccination BMI 27.0-27.9,adult Tinea cruris Anemia, unspecified Surgical History Surgical History Hx of cataract surgery Family History Family History Sibling Family history of elevated blood lipids Father Hypertension Family history of heart disease in male family member before age 55 Mother Hypertension Family history of heart disease in male family member before age 55 Social History Social History Smoking status: Former smoker Tobacco type: cigarettes Alcohol intake: never Substance use: never Substance use type: does not use Do You Feel Safe in your Home?: Yes Lack of Transportation: No Lack of Food: Never True Current Housing: I Have Housing Concerned About Future Housing: No Difficulty Paying Gas/Electric Bills: No Difficulty Paying for Meds: No Currently Unemployed: No Education: High School Diploma/GED Difficulty w/ Childcare or Family Care: No Living arrangements: with family Additional living arrangements comments: Occupation/Education: retired Gender identity (if verbalized by the patient): Male Sexual Orientation (if Verbalized by the Patient): Straight or Heterosexual Spiritual care concerns: No Agree to blood products: Yes Anes - Eval Final PreProcedure Day of Procedure 11/24/24 09:06 Patient weight: normal Heart: regular rate and rhythm Lungs: clear to auscultation Airway: Mallampati scale class II Neurological: alert and oriented Last oral intake: >/= 8 hours ASA classification: IV Emergent: no Anesthetic plan: proceed Anesthesia type and monitoring: general GIVS and standard monitoring Results Review: All pre-operative results and documents have been reviewed as part of the pre- operative evaluation. Informed Consent: The patient's anesthetic plan and its attendant risks and benefits were discussed with the patient/family/POA. Questions were solicited and answers provided to the satisfaction of the patient/family/POA.
[2024-11-24] MEDS: LACTATED RINGERS 1,000 ML 150 ML IV CONT (09:12)
--- NOTE | 2024-11-24 09:21 | PM.HPGS ---
History of Present Illness History of Present Illness Consent: Risks, benefits, and alternatives have been discussed and questions answered. Patient agrees to proceed with procedure. Chief complaint: Diarrhea, unspecified,Personal Hx of colon polyps Narrative: Yehuda Palm is a 79 year old male with known celiac on gluten diet, recent blood work + serology for celiac, also colon polyps 5 years ago Review of Systems Review of Systems: All systems reviewed & are unremarkable except as noted in HPI and below PMFSH Past Medical History Medical History Vascular dementia Diarrhea Hereditary hemochromatosis Presence of combination internal cardiac defibrillator (ICD) and pacemaker MCI (mild cognitive impairment) Memory change Medication reaction Medial knee pain History of meniscal tear Fatty liver Abnormal results of liver function studies History of adenomatous polyp of colon Overweight (BMI 25.0-29.9) BMI 28.0-28.9,adult Celiac disease Colon cancer screening Dyspnea on exertion Cardiomyopathy Need for pneumococcal vaccination BMI 27.0-27.9,adult Tinea cruris Anemia, unspecified Surgical History Surgical History Hx of cataract surgery Family History Family History Sibling Family history of elevated blood lipids Father Hypertension Family history of heart disease in male family member before age 55 Mother Hypertension Family history of heart disease in male family member before age 55 Social History Social History Smoking status: Former smoker Tobacco type: cigarettes Alcohol intake: never Substance use: never Substance use type: does not use Do You Feel Safe in your Home?: Yes Lack of Transportation: No Lack of Food: Never True Current Housing: I Have Housing Concerned About Future Housing: No Difficulty Paying Gas/Electric Bills: No Difficulty Paying for Meds: No Currently Unemployed: No Education: High School Diploma/GED Difficulty w/ Childcare or Family Care: No Living arrangements: with family Additional living arrangements comments: Occupation/Education: retired Gender identity (if verbalized by the patient): Male Sexual Orientation (if Verbalized by the Patient): Straight or Heterosexual Spiritual care concerns: No Agree to blood products: Yes Meds Home Medications and Allergies Home Medications ?Medication ?Instructions ?Recorded ?Confirmed ?Type metoprolol tartrate 25 mg tablet 25 mg PO BID 06/23/19 11/24/24 History sotalol 120 mg tablet 120 mg PO Q12H 06/23/19 11/24/24 History Lactobacillus rhamnosus GG 10 1 cap PO DAILY 05/21/23 11/24/24 History billion cell capsule (Culturelle) aspirin 81 mg capsule 81 mg PO DAILY 05/21/23 11/24/24 History losartan 50 mg tablet 50 mg PO BID #1 tablet 05/21/23 11/24/24 Rx rosuvastatin 20 mg tablet 40 mg (2 x 20 mg) .Route .COMPLEX 05/21/23 11/24/24 Rx #90 tabs vitamin E (dl, acetate) 180 mg 180 mg PO DAILY 05/21/23 11/24/24 History (400 unit) capsule cyanocobalamin (vitamin B-12) 500 250 mcg PO .COMPLEX 03/14/24 11/24/24 History mcg tablet (Vitamin B-12) allopurinol 300 mg tablet See Rx Instructions .Route 07/05/24 11/24/24 Rx .COMPLEX #90 tabs escitalopram oxalate 10 mg tablet 10 mg PO DAILY #90 tabs 10/12/24 11/24/24 Rx (Lexapro) memantine 10 mg tablet (Namenda) 10 mg PO BID #180 tabs 10/16/24 11/24/24 Rx memantine 5 mg-10 mg tablets in a See Rx Instructions PO PER PKG DIR 10/16/24 11/24/24 Rx dose pack (Namenda Titration Nino) #49 ea meloxicam 15 mg tablet See Rx Instructions .Route 10/30/24 11/24/24 Rx .COMPLEX #30 tabs skexwwrwoqvr-lrabhob-hbyfv acid 1 tablet PO DAILY 11/08/24 11/24/24 History 400 mcg-lutein 250 mcg chewable tablet (Centrum Silver) omega 3 350 mg-dha 235 mg-epa 90 1 cap PO DAILY 11/08/24 11/24/24 History mg-fish oil 597 mg capsule,delay rel ([place]-3) Allergies Allergy/AdvReac Type Severity Reaction Status Date / Time nitroglycerin AdvReac Severe Loss of Verified 11/24/24 08:53 Consciousness Vital Signs Vital Signs - 24 hr 11/24/24 08:55 Temperature 97.3 F L Pulse Rate 66 Respiratory Rate 20 Blood Pressure 124/74 Pulse Oximetry 99 Oxygen Delivery Room Air Exam Const: General: comfortable and no acute distress HENMT: Face/Nose/Sinus: Normal nares present Eyes: General: appearance normal, both eyes and all related structures Neck: Neck: no JVD Resp: Auscultation: clear to auscultation bilaterally Cardio: Rate: regular rate Rhythm: regular rhythm GI: Inspection: non-distended GI Palp: Yes Soft to palpation Skin: General skin exam: normal color Neuro: Speech: normal speech Extrem: General: normal to inspection Psych: Mental Status: mental status grossly normal Assessment and Plan Assessment and plan (1) Celiac disease: Code(s): K90.0 - Celiac disease Status: Acute Assessment and Plan: will get duodenal bx (2) History of adenomatous polyp of colon: Code(s): Z86.010 - Personal history of colon polyps Status: Acute Assessment and Plan: colonoscopy
--- NOTE | 2024-11-24 09:27 | S_PTH ---
PATIENT: Yehuda Palm LOC: [facility] Garcia#:[id number] AGE/SX: 79/M ROOM: RE11/24/[address]: Joce Puga MD : 1945 BED: DIS: 11/24/2024 SPEC #: [id number] RECD: 11/24/24 10:20 STATUS: MISTY REKrys #: [id number] MAYA: 11/24/24 09:[address]: Joce Puga DEPT: [facility] Surgical RECD BY: Patricia Morse ENTERED: 11/24/24 10:21 SP TYPE: Surgical OTHR DR: Evelin Martinez, MALCOLM Tissues: A - Small Bowel Bx B - Gastric Biopsy C - Colon Biopsy Procedures: Hematoxylin and Eosin Stain Gross and Microscopic Level 4
--- NOTE | 2024-11-24 09:33 | SUR.OPER ---
EGD: COLON: Start 931
[2024-11-24 09:45] VITALS: BP 133/64; PULSE 51; RESP 13; O2SAT 99
[2024-11-24 09:54] VITALS: BP 104/65; PULSE 63; RESP 20; O2SAT 99
[2024-11-24 10:04] VITALS: BP 108/66; PULSE 62; RESP 22; O2SAT 99
== END 2024-11-24 10:15 | disposition home or self-care (01) ==
PROVIDERS: PCP Nurse Practitioner Family; Visit Provider Internal Medicine Gastroenterology
PROC: 0DJD8ZZ Inspection of Lower Intestinal Tract, Via Natural or Artificial Opening Endoscopic (ICD-10-PCS; CPT 45378; principal; 2024-11-24 10:00)
PROC: 0DJ08ZZ Inspection of Upper Intestinal Tract, Via Natural or Artificial Opening Endoscopic (ICD-10-PCS; CPT 45380; 2024-11-24 10:00)
DX: R19.7 Diarrhea, unspecified (principal); K64.8 Other hemorrhoids; Z86.0100 Personal history of colon polyps, unspecified; K90.0 Celiac disease; K29.70 Gastritis, unspecified, without bleeding; Z87.891 Personal history of nicotine dependence
CPT/HCPCS: 45380; 43239; 88305; J2003; J2371; J2704; J7120

== ENCOUNTER 2025-01-08 09:01 | Outpatient (CLI) | payer MEDICARE, SELFPAY ==
--- NOTE | ~2025-01-08 | US_ITS ---
US arterial ankle brachial ind INDICATION: Cold sensation of the skin TECHNIQUE: Segmental pressures and plethysmographic and Doppler waveforms of the brachial and lower extremity arteries were obtained. COMPARISON: None. FINDINGS: Right and left brachial artery pressures of 104 mm Hg and 98 mm Hg, respectively, are concordant (normal difference <= 30 mmHg). The right ankle-brachial index (SAGE) is 1.11 (normal >= 0.9-1.0). The right great toe-brachial index (TBI) is 0.8 (normal >= 0.60). The left SAGE is 1.21. The left TBI is 0.7. IMPRESSION: 1. Normal ankle-brachial indices. Reviewed, dictated and finalized at location O.
--- OUTSIDE RECORDS SUMMARY | 2025-01-08 09:35 | XMS_ITS | Encounter Summary ---
Author Organization [facility] Address [address] [facility] [address] [place] [address] Care Team Providers Care Painter Bottom Name Role Phone Hermilo Jacobsen MD Primary Care Provider + [phone] Hermilo Jacobsen MD Primary Care Provider + [phone] Encounter Details Date Type Department Care Team (Late st Contact Info) Description 05/20/2016 Orders Only [facility] ProviderKarli MD [address] [place] [address] Social History Tobacco Use Types Packs/Day Years Used Date Smoking Tobacco: Former Cigarettes Q uit: 05/17/1983 Alcohol Use Standard Drinks/Week Comments Yes 0 (1 standard drink = 0.6 oz pur e alcohol) Sex and Gender Information Value Date Recorded Sex Assigned at Not on file 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
--- OUTSIDE RECORDS SUMMARY | 2025-01-08 09:35 | XMS_ITS | Clinical Summary ---
Author Organization [facility] Address [address] [facility] [place] [address] Care Team Providers Care Shipping And Receiving Specialist Name Role Phone Hermilo Jacobsen MD Primary [...] mg total) by mouth daily 4 Active escitalopram (LEXAPRO) 10 mg tablet [...] A DAY 180 tablet 2 5 Active memantine (NAMENDA) 10 mg tablet Take 1 tablet (10 mg total) by mouth 2 (two) times a day 5 Active calcium carbonate (OS-NAIF) 1,500 mg (600 mg elemental) tablet Take 1 tablet (1,500 mg total) by mouth Active cholecalcifero l (VITAMIN D-3) 2000 unit capsule 1 capsule (2,000 Units total) Active omega-3 fatty acids-fish oil 300-400 mg capsule Take 600 mg by mouth Active turmeric root extract 500 mg capsule Take 1,000 mg by mouth Active cyanocobalamin , vitamin B-12, (Vitamin B-12) 5,000 mcg tablet, sublingual Place under the tongue Active sotaloL (BETAPACE) 120 mg tablet TAKE 1 TABLET BY MOUTH TWICE A DAY 180 tablet 3 5 Active sotaloL (BETAPACE) 120 mg tablet TAKE 1 TABLET BY MOUTH TWICE A DAY 180 tablet 3 4 12/30/19 25 Discontinued Active Problems Problem Noted Date Diagnosed Date Nonobstructive atherosclerosis of coronary arter y 10/15/2023 HANDY (dyspnea on exertion) 04/13/2023 Pacemaker lead failure, subsequent encounter Hypercholesteremia 09/10/2020 Hyperkalemia 03/05/2020 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 S/p ROTATING EQUIPMENT ENGINEER-D system implantation. LV lead nonfunctional and programmed off. LVE stable/normal. Recommend observation for now. Favor LV lead revision at time of generator replacement. Sooner if pt develops new symptoms or EF decline. --Continue remote device monitoring Assessment & Plan (10/20/2023 12:51 PM CDT): S/p ROTATING EQUIPMENT ENGINEER-D system implantation. LV lead non-functional and programmed [...] year Assessment & Plan (06/23/2023 11:42 AM FOREST NURSERY SUPERVISOR): S/p ROTATING EQUIPMENT ENGINEER-D system with LV lead fracture. LV function remains generally preserved. He has mild HF symptoms but is quite functional, with no significant recent decline. We discussed indications for device revision with new LV lead. Given clinical stability, favor waiting and reassessing LV function. If there is decline, we would plan to revise his device. --Continue remote device f/u via [place] --TTE as scheduled in September --F/u with me in October as scheduled Assessment & Plan (11/04/2022 11:23 AM CDT): S/p ROTATING EQUIPMENT ENGINEER-D system implantation. LV lead fracture, now programmed [...] BI-V ICD implanted on 02/14/19 [facility] Chronic RA/RV/LV leads are from [...] BID Assessment & Plan (06/23/2023 11:42 AM FOREST NURSERY SUPERVISOR): Stable/no events. --Continue sotalol 120 mg BID [...] Plan (11/25/2016 11:49 AM CDT): Status post ROTATING EQUIPMENT ENGINEER. Resolved Problems Problem Noted Date Diagnosed Date [...] Encounters Date Type Department Care Team Description 12/05/2024 8:30 AM CDT Office Visit [facility] Cardiology [address] [place] [phone] Lidia Gonzales NP NICM (nonischemic cardiomyopathy) (HCC); Nonobstructive atherosclerosis of coronary artery; VT (ventricular tachycardia) (HCC); ICD (implantable cardioverter-defibrill ator) in place; Cold sensation of skin; Other specified symptoms and signs involving the circulatory and respiratory systems 12/05/2024 Telephone [facility] Cardiology [address] [facility] [address], [place] [address] Lidia Gonzales NP 10/25/2024 11:00 AM CDT [facility] [address] [facility] [address] [place] [address] Donte Stanford III, MD NICM (nonischemic cardiomyopathy) (HCC) (Primary Dx); VT (ventricular tachycardia) (HCC); ICD (implantable cardioverter-defibrill ator) in place; Cardiac arrhythmia, unspecified cardiac arrhythmia type 10/25/2024 10:45 AM CDT Ancillary Procedure [facility] [address] [place] [address], [place] [phone] NICM (nonischemic cardiomyopathy) (HCC) (Primary Dx); ICD (implantable cardioverter-defibrill ator) in place 10/20/2024 Results [facility]Up [facility] [address] [place] [phone] Donte Stanford III, MD Transthoracic Echo (TTE) Complete W Doppler/CF 10/18/2024 6:45 AM CDT - 10/18/2024 11:59 PM CDT Hospital Encounter [facility] OP Cardiac Testing [address] [facility] [address] [place], [place] [id number] Cardiac arrhythmia, unspecified cardiac arrhythmia type; Atrial fibrillation, unspecified type (HCC) Discharge Disposition: Discharge to home or self care 10/11/2024 Orders Only [facility] [address] [place] [address] Donte Stanford III, MD Cardiac arrhythmia, [...] Sleep apnea Sleep Apnea, CPA P Cardiomyopathy 2010 Cardiomyopathy Family History Medical History Relation Name Comments [...] on file Legal Sex 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 Gender Identity Not on file Sexual Orientation Not on file Obstetrics History Last Filed Vital Signs Vital Sign Reading Time Taken Comments Blood Pressure 102/56 12/05/2024 8:35 AM CDT Pulse 56 12/05/2024 8:35 AM CDT Temperature 37 C (98.6 F) 05/14/2023 1:48 PM FOREST NURSERY SUPERVISOR Respiratory Rate 18 05/14/2023 5:30 PM FOREST NURSERY SUPERVISOR Oxygen Saturation 97% 12/05/2024 8:35 AM CDT Inhaled Oxygen Concentration - - Weight 86.2 kg (190 lb) 12/05/2024 8:35 AM CDT Height 182.9 cm (6') 12/05/2024 8:35 AM CDT Body Mass Index 25.77 12/05/2024 8:35 AM CDT Plan of Treatment Health Maintenance Due Date Last Done Comments Depression Screening 1945 Fall Risk Assessment 1945 Hepatitis C Screening 1945 Hepatitis B Screening 08/30/1965 Abdominal Aortic Aneurysm (A AA) Screen 08/30/2012 Well Visit 65+ 08/30/2012 Pneumococcal vaccine 65+ (2 of 2 - PCV20 or PCV21) 10/19/2019 10/18/2018 Covid-19 Vaccine (3 - 2023-2 5 season) 2024 07/26/2020, 06/28/2020 Influenza Vaccine (#1) 2025 4, 02/23/2022, 02/05/2020, Additional history exists DTaP/Tdap/Td Vaccine (2 - Td or Tdap) 10/18/2028 10/18/2018 Zoster Vaccine Completed 02/21/2020, 04/14/2019 Medical Devices Implanted Type Area Dancer Or Choreographer Device Identifier Shelf Expiration Date Model / Serial / Lot Icd ICD Chest [employer] [id number] Unify Assura Rf Telemetry Df4-[facility] Is-1 Connector 40j - [id number] - [id number] Implanted:Qty: 1 on 02/14/2019 by Lexa Tapia MD at [facility] ICD [employer] [id number] 04/15/2020 [id number] / [id number] / Procedures Procedure Name Priority Date/Time Associated [...] 9.6 seconds Episodes last 90 days/Comments: AF [place] 0% No new ventricular events NORMAL DEVICE FUNCTION PROGRAMMED MEDICATIONS: Anti-coagulant(s): Aspirin 81 mg Anti-arrhythmic(s): Sotalol 120 mg twice a day, Lopressor 25 mg twice a day PLAN: 1) Weathers ICD evaluation. 2) [facility] remote transmission scheduled in 3 months. 3) Programming appropriate for device measurements Lidia Elizabeth, HELGA Donte Stanford III, MD CV CARDIAC SERVICES PROCEDURES Final Result * TRANSTHORACIC ECHO (TTE) COMPLETE W DOPPLER/CF WO CONTRAST (10/18/2024 7:43 AM CDT) Estimated EF 55-60 % CONS SCIMAGE EF Mod BP 61 % CONS SCIMAGE Anatomical Region Laterality Modality Ultrasound 10/18/2024 6:44 AM CDT Narrative 10/18/2024 10:15 AM CDT [facility] [address] [place] [address] ECHOCARDIOGRAM Patient Name: YEHUDA PALM : 1945 (79y 1m) Gender: M Study Date: 10/18/2024 06:44:49 AM Ht(Inch): 72 Wt(Lb): 192.02 BSA: 2.1 Home Sales Service Professional: ERASMO Location: [place] Order Provider: DONTE STANFORD [...] regurgitation. Electronically Signed By: Jorge Macario MD [facility] 10/18/2024 10:14:48 AM CDT Procedure Note Jorge Macario MD - 10/18/2024 [facility] Cardiac Testing Center [address] [place] [address] ECHOCARDIOGRAM Patient Name: YEHUDA PALM : 1945 (79y 1m) Gender: M Study Date: 10/18/2024 06:44:49 AM Ht(Inch): 72 Wt(Lb): 192.02 BSA: 2.1 Home Sales Service Professional: ERASMO Location: [place] Order Provider: DONTE STANFORD [...] regurgitation. Electronically Signed By: Jorge Macario MD [facility] 10/18/2024 10:14:48 AM CDT Donte Stanford III, MD CV ECHO PROCEDURES Final Result from Last 3 Months Insurance MEDICARE [facility] MEDICARE BLUE CROSS MEDICARE SUPPLEMENT MEDICARE [facility] Care Teams Shipping And Receiving Specialist Relationship Specialty Start Date End Date Hermilo Jacobsen MD PCP - General 08/14/16
--- OUTSIDE RECORDS SUMMARY | 2025-01-08 09:35 | XMS_ITS | Encounter Summary ---
Author Organization [facility] Address [address] [facility] [address] [place] [address] Care Team Providers Care Director Of Pediatric Rehabilitation Name Role Phone Hermilo Jacobsen MD Primary Care Provider Encounter Details Date Type Department Care Team (Late st Contact Info) Description 08/18/2016 Orders Only [facility] ProviderKarli MD [address] [place] [address] Social History Tobacco Use Types Packs/Day Years Used Date Smoking Tobacco: Former Cigarettes Q uit: 05/17/1983 Alcohol Use Standard Drinks/Week Comments Yes 0 (1 standard drink = 0.6 oz pur e alcohol) Sex and Gender Information Value Date Recorded Sex Assigned at Not on file 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
--- OUTSIDE RECORDS SUMMARY | 2025-01-08 09:35 | XMS_ITS | Encounter Summary ---
Author Organization [facility] Address [address] [facility] [address] [place] [address] Care Team Providers Care Wagon Person Name Role Phone Hermilo Jacobsen MD Primary Care Provider + [phone] Hermilo Jacobsen MD Primary Care Provider + [phone] Encounter Details Date Type Department Care Team (Late st Contact Info) Description 06/09/2016 Orders Only [facility] ProviderKarli MD [address] [place] [address] Social History Tobacco Use Types Packs/Day Years Used Date Smoking Tobacco: Former Cigarettes Q uit: 05/17/1983 Alcohol Use Standard Drinks/Week Comments Yes 0 (1 standard drink = 0.6 oz pur e alcohol) Sex and Gender Information Value Date Recorded Sex Assigned at Not on file 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
== END 2025-01-08 09:02 | disposition home or self-care (01) ==
PROVIDERS: PCP Nurse Practitioner Family; Visit Provider Nurse Practitioner Adult Health
DX: R20.9 Unspecified disturbances of skin sensation (principal); R09.89 Other specified symptoms and signs involving the circulatory and respiratory systems
CPT/HCPCS: 93922

== ENCOUNTER 2025-01-11 14:15 | Outpatient (CLI) | payer MEDICARE, SELFPAY ==
--- OUTSIDE RECORDS SUMMARY | 2025-01-11 14:18 | XMS_ITS | Encounter Summary ---
Author Organization [facility] Address [address] [facility] [address] [place] [address] Care Team Providers Care Wireless Field Technician Name Role Phone Hermilo Jacobsen MD Primary Care Provider Encounter Details Date Type Department Care Team (Late st Contact Info) Description 08/18/2016 Orders Only [facility] ProviderKarli MD [address] [place] [address] Social History Tobacco Use Types Packs/Day Years Used Date Smoking Tobacco: Former Cigarettes Q uit: 05/17/1983 Alcohol Use Standard Drinks/Week Comments Yes 0 (1 standard drink = 0.6 oz pur e alcohol) Sex and Gender Information Value Date Recorded Sex Assigned at Not on file 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
--- OUTSIDE RECORDS SUMMARY | 2025-01-11 14:18 | XMS_ITS | Encounter Summary ---
Author Organization [facility] Address [address] [facility] [address] [place] [address] Care Team Providers Care Band Top Maker Name Role Phone Hermilo Jacobsen MD Primary Care Provider + [phone] Hermilo Jacobsen MD Primary Care Provider + [phone] Encounter Details Date Type Department Care Team (Late st Contact Info) Description 05/20/2016 Orders Only [facility] ProviderKarli MD [address] [place] [address] Social History Tobacco Use Types Packs/Day Years Used Date Smoking Tobacco: Former Cigarettes Q uit: 05/17/1983 Alcohol Use Standard Drinks/Week Comments Yes 0 (1 standard drink = 0.6 oz pur e alcohol) Sex and Gender Information Value Date Recorded Sex Assigned at Not on file 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
--- OUTSIDE RECORDS SUMMARY | 2025-01-11 14:18 | XMS_ITS | Clinical Summary ---
Author Organization [facility] Address [address] [facility] [place] [address] Care Team Providers Care Insurance Verification Specialist Name Role Phone Hermilo Jacobsen MD [...] (01/31/2019): Added automatically from request for surgery [id number] Assessment & Plan (10/25/2024 11:26 AM CDT): Chronic, stable. S/p WASHTUB WORKER HELPER-D system implantation. LV lead nonfunctional and programmed off. LVE stable/normal. Recommend observation for now. Favor LV lead revision at time of generator replacement. Sooner if pt develops new symptoms or EF decline. --Continue remote device monitoring Assessment & Plan (10/20/2023 12:51 PM CDT): S/p WASHTUB WORKER HELPER-D system implantation. LV lead non-functional and programmed [...] year Assessment & Plan (06/23/2023 11:42 AM COOK CHILL TECHNICIAN): S/p WASHTUB WORKER HELPER-D system with LV lead fracture. LV function remains generally preserved. He has mild HF symptoms but is quite functional, with no significant recent decline. We discussed indications for device revision with new LV lead. Given clinical stability, favor waiting and reassessing LV function. If there is decline, we would plan to revise his device. --Continue remote device f/u via [place] --TTE as scheduled in September --F/u with me in October as scheduled Assessment & Plan (11/04/2022 11:23 AM CDT): S/p WASHTUB WORKER HELPER-D system implantation. LV lead fracture, now programmed [...] BI-V ICD implanted on 02/14/19 for [facility]. Chronic RA/RV/LV leads are from 02/12/11. [...] BID Assessment & Plan (06/23/2023 11:42 AM COOK CHILL TECHNICIAN): Stable/no events. --Continue sotalol 120 mg [...] Plan (11/25/2016 11:49 AM CDT): Status post WASHTUB WORKER HELPER. Resolved Problems Problem Noted Date Diagnosed Date [...] Description 12/05/2024 8:30 AM CDT Office Visit [facility] Cardiology [address] [place] [phone] Lidia Gonzales NP NICM (nonischemic cardiomyopathy) (HCC); Nonobstructive atherosclerosis of coronary artery; VT (ventricular tachycardia) (HCC); ICD (implantable cardioverter-defibrill ator) in place; Cold sensation of skin; Other specified symptoms and signs involving the circulatory and respiratory systems 12/05/2024 Telephone [facility] Cardiology [address] [facility] [address] [address] Lidia Gonzales NP 10/25/2024 11:00 AM CDT Office Visit [facility] [address] [facility] [address] [place] [address] Donte Stanford III, MD NICM (nonischemic cardiomyopathy) (HCC) (Primary Dx); VT (ventricular tachycardia) (HCC); ICD (implantable cardioverter-defibrill ator) in place; Cardiac arrhythmia, unspecified cardiac arrhythmia type 10/25/2024 10:45 AM CDT Ancillary Procedure [facility] [address] [place] [address], [place] [phone] NICM (nonischemic cardiomyopathy) (HCC) (Primary Dx); ICD (implantable cardioverter-defibrill ator) in place 10/20/2024 Results Follow[facility]Up [facility] [address] [place] [phone] Donte Stanford III, MD Transthoracic Echo (TTE) Complete W Doppler/CF 10/18/2024 6:45 AM CDT - 10/18/2024 11:59 PM CDT Hospital Encounter [facility] OP Cardiac Testing [address] [facility] [address] [place], [place] [id number] Cardiac arrhythmia, unspecified cardiac arrhythmia type; Atrial fibrillation, unspecified type (HCC) Discharge Disposition: Discharge to home or self care 10/11/2024 Orders Only [facility] [address] [place] [phone] Donte Stanford III, MD Cardiac arrhythmia, [...] on file Legal Sex Male 2:25 PM COOK CHILL TECHNICIAN Gender Identity Not on file Sexual Orientation Not on file Obstetrics History Last Filed Vital Signs Vital Sign Reading Time Taken Comments Blood Pressure 102/56 12/05/2024 8:35 AM CDT Pulse 56 12/05/2024 8:35 AM CDT Temperature 37 C (98.6 F) 05/14/2023 1:48 PM COOK CHILL TECHNICIAN Respiratory Rate 18 05/14/2023 5:30 PM COOK CHILL TECHNICIAN Oxygen Saturation 97% 12/05/2024 8:35 AM CDT [...] 02/21/2020, 04/14/2019 Medical Devices Implanted Type Area Cabinet Maker Device Identifier Shelf Expiration Date Model / Serial / Lot Icd ICD Chest [facility] [employer] [id number] Unify Assura Rf Telemetry Df4-[facility] Is-1 Connector 40j - [id number] - [id number] Implanted:Qty: 1 on 02/14/2019 by Lexa Tapia MD at [facility] ICD [employer] [id number] 04/15/2020 [id number] / [id number] / Procedures Procedure Name Priority Date/Time Associated [...] 9.6 seconds Episodes last 90 days/Comments: AF [place] 0% No new ventricular events NORMAL DEVICE FUNCTION PROGRAMMED MEDICATIONS: Anti-coagulant(s): Aspirin 81 mg Anti-arrhythmic(s): Sotalol 120 mg twice a day, Lopressor 25 mg twice a day PLAN: 1) Weathers ICD evaluation. 2) Specialists On Call remote transmission scheduled in 3 months. 3) [...] AM CDT Narrative 10/18/2024 10:15 AM CDT [facility] Outpatient Cardiac Testing [facility] [address] [place] [address] ECHOCARDIOGRAM Patient Name: YEHUDA PALM : 1945 (79y 1m) Gender: M Study Date: 10/18/2024 06:44:49 AM Ht(Inch): 72 Wt(Lb): 192.02 BSA: 2.1 Mechanic/Welder: ERASMO Location: [facility] Order Provider: DONTE STANFORD [...] regurgitation. Electronically Signed By: Jorge Macario MD [facility] 10/18/2024 10:14:48 AM CDT Procedure Note Jorge Macario MD - 10/18/2024 [facility] Cardiac Testing Center [address] [place] [address] ECHOCARDIOGRAM Patient Name: YEHUDA PALM : 1945 (79y 1m) Gender: M Study Date: 10/18/2024 06:44:49 AM Ht(Inch): 72 Wt(Lb): 192.02 BSA: 2.1 Mechanic/Welder: ERASMO Location: [facility] Order Provider: DONTE STANFORD [...] regurgitation. Electronically Signed By: Jorge Macario MD [facility] 10/18/2024 10:14:48 AM CDT Donte Stanford III, MD CV ECHO PROCEDURES Final Result from Last 3 Months Insurance MEDICARE [facility] MEDICARE BLUE CROSS MEDICARE SUPPLEMENT MEDICARE [facility] Care Teams Insurance Verification Specialist Relationship Specialty Start Date End Date Hermilo Jacobsen MD PCP - General 08/14/16
--- OUTSIDE RECORDS SUMMARY | 2025-01-11 14:18 | XMS_ITS | Clinical Summary ---
Author Organization [facility] Address [address] [place] [address] Care Team Providers Care Broodmare Foreman Name Role Phone Unavailable Primary Care Provider [...] this topic Medical Devices Implanted Type Area Plunger Shovel Operator Device Identifier Shelf Expiration Date Model / Serial / Lot Ra Lead Implant-2010 Implanted: (Quantity not on file) Lead Implant [facility] [employer] [facility] [employer] 5076 / [id number] / Rv Lead Implant-2010 Implanted: (Quantity not on file) Lead Implant [facility] [employer] [facility] [employer] 7121Q/65 / [id number] / Lv Lead- 1 Implanted: (Quantity not on file) Lead Implant [facility] [employer] [facility] [employer] 1258T/86 / [id number] / Pacemaker-02/14/2019 Implanted:05/2018 by Lexa Tapia MD (Quantity not on file) Pacemaker [facility] [employer] - [facility] [employer] [id number] / [id number] /
--- OUTSIDE RECORDS SUMMARY | 2025-01-11 14:18 | XMS_ITS | Clinical Summary ---
Author Organization [facility] Address [address] [facility] [place] [address] Care Team Providers Care Maintenance Planning Clerk Name Role Phone Hermilo Jacobsen MD Primary Care Provider [phone] Allergies No known active allergies Medications sotalol [...] Encounters Date Type Department Care Team Description 01/02/2025 External Device Data [facility] ABSTRACTION Provider, Abstract 01/02/2025 External Device Data [facility] ABSTRACTION Provider, Abstract 12/20/2024 External Device Data [facility] ABSTRACTION Provider, Abstract 11/29/2024 External Device Data [facility] ABSTRACTION Provider, Abstract 11/28/2024 External Device Data [facility] ABSTRACTION Provider, Abstract 10/31/2024 External Device Data [facility] ABSTRACTION Provider, Abstract 10/20/2024 Orders Only [facility] Oncology and H[facility]ology - [address] [place] [address] Maurice Lang MD 10/18/2024 Orders Only [facility] Oncology and Hematology [address] [place] [address] Scanning, Provider from Last 3 Months Family History Medical [...] Description 02/01/2025 10:15 AM CDT Office Visit [facility] Oncology and Hematology [address] [place] [address] Maurice Lang MD [address] [place] [address] Health Maintenance Due Date Last Done Comments PNEUMOCOCCAL VACCINE 50+ YEA RS (2 of 2 - PCV20 or PCV21) 10/19/2019 10/18/2018 RSV VACCINE (60+ or ) [...] Result from Last 3 Months Insurance MEDICARE PART A AND B [facility] SUPP MEDICARE PART A AND B [facility] SUPP Care Teams Maintenance Planning Clerk Relationship Specialty Start Date End Date Hermilo Jacobsen MD [address] [place] [address] PCP - General Family Practice 09/06/17
--- OUTSIDE RECORDS SUMMARY | 2025-01-11 14:18 | XMS_ITS | Encounter Summary ---
Author Organization [facility] Address [address] [facility] [address] [place] [address] Care Team Providers Care Philosophy Professor Name Role Phone Hermilo Jacobsen MD Primary Care Provider + [phone] Hermilo Jacobsen MD Primary Care Provider + [phone] Encounter Details Date Type Department Care Team (Late st Contact Info) Description 06/09/2016 [facility] Only [facility] ProviderKarli MD [address] [place] [address] Social History Tobacco Use Types Packs/Day Years Used Date Smoking Tobacco: Former Cigarettes Q uit: 05/17/1983 Alcohol Use Standard Drinks/Week Comments Yes 0 (1 standard drink = 0.6 oz pur e alcohol) Sex and Gender Information Value Date Recorded Sex Assigned at Not on file 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
== END 2025-01-11 14:16 | disposition home or self-care (01) ==
PROVIDERS: PCP Family Medicine; Visit Provider Nurse Practitioner Family
DX: K90.0 Celiac disease (principal)
CPT/HCPCS: 82784; 86231; 86364

== ENCOUNTER 2025-01-23 10:16 | Outpatient (CLI) | payer MEDICARE, SELFPAY ==
[2025-01-23 10:37] LABS: Hematocrit 36.6 % (42.0-52.0); Hemoglobin 12.1 g/dL (14.0-18.0); Immature Granulocyte Percent A 0.2 % (0-0.5); Lymphocytes Absolute Auto 0.63 K/mm3 (0.9-3.2); Mean Corpuscular HGB Conc 33.1 g/dl (32-36); Mean Corpuscular Hemoglobin 34.9 pg (26-34); Mean Corpuscular Volume 105.5 fl (80-100); Nucleated Red Blood Cells Absolute Auto 0.000 K/mm3 (0.0-0.012); Nucleated Red Blood Cells Perc 0.0 % (0.0-0.2); Platelet Count Result 155 k/mm3 (150-375); Red Blood Count 3.47 M/mm3 (4.6-6.20); White Blood Count 4.1 K/mm3 (4.5-10.0)
--- OUTSIDE RECORDS SUMMARY | 2025-01-23 11:52 | XMS_ITS | Encounter Summary ---
Author Organization [facility] Address [address] [facility] [address] [place] [address] Care Team Providers Care Educational Specialist Name Role Phone Hermilo Jacobsen MD Primary Care Provider + [phone] Hermilo Jacobsen MD Primary Care Provider + [phone] Encounter Details Date Type Department Care Team (Late st Contact Info) Description 06/09/2016 Orders Only [facility] ProviderKarli MD [address] [place] [address] Social History Tobacco Use Types Packs/Day Years Used Date Smoking Tobacco: Former Cigarettes Q uit: 05/17/1983 Alcohol Use Standard Drinks/Week Comments Yes 0 (1 standard drink = 0.6 oz pur e alcohol) Sex and Gender Information Value Date Recorded Sex Assigned at Not on file 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
--- OUTSIDE RECORDS SUMMARY | 2025-01-23 11:52 | XMS_ITS | Encounter Summary ---
Author Organization [facility] Address [address] [facility] [address] [place] [address] Care Team Providers Care Baker Doughnut Name Role Phone Hermilo Jacobsen MD Primary Care Provider + [phone] Hermilo Jacobsen MD Primary Care Provider + [phone] Encounter Details Date Type Department Care Team (Late st Contact Info) Description 05/20/2016 Orders Only [facility] ProviderKarli MD [address] [place] [address] Social History Tobacco Use Types Packs/Day Years Used Date Smoking Tobacco: Former Cigarettes Q uit: 05/17/1983 Alcohol Use Standard Drinks/Week Comments Yes 0 (1 standard drink = 0.6 oz pur e alcohol) Sex and Gender Information Value Date Recorded Sex Assigned at Not on file 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
--- OUTSIDE RECORDS SUMMARY | 2025-01-23 11:52 | XMS_ITS | Encounter Summary ---
Author Organization [facility] Address [address] [facility] [address] [place] [address] Care Team Providers Care Restaurant Assistant Name Role Phone Hermilo Jacobsen MD Primary Care Provider Encounter Details Date Type Department Care Team (Late st Contact Info) Description 08/18/2016 Orders Only [facility] ProviderKarli MD [address] [place] [address] Social History Tobacco Use Types Packs/Day Years Used Date Smoking Tobacco: Former Cigarettes Q uit: 05/17/1983 Alcohol Use Standard Drinks/Week Comments Yes 0 (1 standard drink = 0.6 oz pur e alcohol) Sex and Gender Information Value Date Recorded Sex Assigned at Not on file Legal Sex Male 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
--- OUTSIDE RECORDS SUMMARY | 2025-01-23 11:52 | XMS_ITS | Clinical Summary ---
Author Organization [facility] Address [address] [place] [address] Care Team Providers Care Overnight Caregiver Name Role Phone Unavailable Primary Care Provider [...] 75+ series) 08/30/2022 COVID-19 Vaccine (3 - 2024-2 6 season) 2025 07/26/2020, 06/28/2020 Zoster Vaccines Completed 02/21/2020, 04/14/2019 [...] this topic Medical Devices Implanted Type Area Hospice Entrance Attendant Device Identifier Shelf Expiration Date Model / Serial / Lot Ra Lead Implant-2010 Implanted: (Quantity not on file) Lead Implant [facility] [facility] [id number] / [id number] / Rv Lead Implant-2010 Implanted: (Quantity not on file) Lead Implant [facility] [id number]/65 / [id number] / Lv Lead- 1 Implanted: (Quantity not on file) Lead Implant [facility] 1258T/86 / [id number] / Pacemaker-02/14/2019 Implanted:05/2018 by Lexa Tapia MD (Quantity not on file) Pacemaker [facility] - [facility] [id number] / [id number] /
--- OUTSIDE RECORDS SUMMARY | 2025-01-23 11:52 | XMS_ITS | Clinical Summary ---
Author Organization [facility] Address [address] [facility] [place] [address] Care Team Providers Care Screener Perfumer Name Role Phone Hermilo Jacobsen MD Primary Care Provider Allergies No known active allergies Medications sotalol [...] Description 02/01/2025 10:15 AM CDT Office Visit [facility] Oncology and Hematology - [place] [address] [facility] [address] [place] [address] Maurice Lang MD [address] [facility] [address] [place] [address] Health Maintenance Due Date Last Done Comments Traditional Medicare (ACO) A nnual Wellness Visit 08/30/1966 PNEUMOCOCCAL VACCINE 50+ YEA RS (2 of 2 - PCV20 or PCV21) 10/19/2019 10/18/2018 RSV VACCINE (60+ or ) (1 - 1-dose 75+ series) 08/30/2022 INFLUENZA VACCINE (#1) 2024 0, 03/30/2019, 02/05/2018, Additional history exists COVID-19 Vaccine (3 - 2024-2 6 season) 2025 07/26/2020, 06/28/2020 DTAP/TDAP/TD VACCINES (2 - T d or Tdap) 10/18/2028 10/18/2018 ZOSTER VACCINE Completed 02/21/2020, 04/14/2019 COLORECTAL SCREENING Discontinued 11/24/2024, 04/15/20 20 Colorectal Cancer Screening Discontinued FIT-DNA Q 3 years Discontinued FIT/FOBT Q 1 year Discontinued Flex Sig/CT Colonography Q 5 years Discontinued Insurance MEDICARE PART A AND B [facility] MEDICARE PART A AND B [facility] [facility] SUPP Care Teams Screener Perfumer Relationship Specialty Start Date End Date Hermilo Jacobsen MD [address] [place] [address] PCP - General Family Practice 09/06/17
--- OUTSIDE RECORDS SUMMARY | 2025-01-23 11:52 | XMS_ITS | Clinical Summary ---
Author Organization [facility] Address [address] [place] [address] Care Team Providers Care Emergency Planner Name Role Phone Hermilo Jacobsen MD [...] (01/31/2019): Added automatically from request for surgery [id number] Assessment & Plan (10/25/2024 11:26 AM CDT): Chronic, stable. S/p BELT KNIFE FEEDER-D system implantation. LV lead nonfunctional and programmed off. LVE stable/normal. Recommend observation for now. Favor LV lead revision at time of generator replacement. Sooner if pt develops new symptoms or EF decline. --Continue remote device monitoring Assessment & Plan (10/20/2023 12:51 PM CDT): S/p BELT KNIFE FEEDER-D system implantation. LV lead non-functional and programmed [...] year Assessment & Plan (06/23/2023 11:42 AM GRADER OPERATOR): S/p BELT KNIFE FEEDER-D system with LV lead fracture. LV function remains generally preserved. He has mild HF symptoms but is quite functional, with no significant recent decline. We discussed indications for device revision with new LV lead. Given clinical stability, favor waiting and reassessing LV function. If there is decline, we would plan to revise his device. --Continue remote device f/u via [place] --TTE as scheduled in September --F/u with me in October as scheduled Assessment & Plan (11/04/2022 11:23 AM CDT): S/p BELT KNIFE FEEDER-D system implantation. LV lead fracture, now programmed [...] BI-V ICD implanted on 02/14/19 [facility]. Chronic RA/RV/LV leads are from [...] BID Assessment & Plan (06/23/2023 11:42 AM GRADER OPERATOR): Stable/no events. --Continue sotalol 120 mg [...] Plan (11/25/2016 11:49 AM CDT): Status post BELT KNIFE FEEDER. Resolved Problems Problem Noted Date Diagnosed Date [...] Description 12/05/2024 8:30 AM CDT Office Visit [facility] Cardiology [address] [place] [phone] Lidia Gonzales NP NICM (nonischemic cardiomyopathy) (HCC); Nonobstructive atherosclerosis of coronary artery; VT (ventricular tachycardia) (HCC); ICD (implantable cardioverter-defibrill ator) in place; Cold sensation of skin; Other specified symptoms and signs involving the circulatory and respiratory systems 12/05/2024 Telephone [facility] Cardiology [address] [facility] [address], [place] [address] Lidia Gonzales NP 10/25/2024 11:00 AM CDT [facility] Visit [facility] [address] [facility] [address] [place] [address] Donte Stanford III, MD NICM (nonischemic cardiomyopathy) (HCC) (Primary Dx); VT (ventricular tachycardia) (HCC); ICD (implantable cardioverter-defibrill ator) in place; Cardiac arrhythmia, unspecified cardiac arrhythmia type 10/25/2024 10:45 AM CDT Ancillary Procedure [facility] [address] [facility] [address] [place] [address] NICM (nonischemic cardiomyopathy) ([facility]) (Primary Dx); ICD (implantable cardioverter-defibrill ator) in place from Last 3 Months Immunizations Immunization Administration [...] on file Legal Sex Male 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 PM GRADER OPERATOR Gender Identity Not on file Sexual Orientation Not on file Obstetrics History Last Filed Vital Signs Vital Sign Reading Time Taken Comments Blood Pressure 102/56 12/05/2024 8:35 AM CDT Pulse 56 12/05/2024 8:35 AM CDT Temperature 37 C (98.6 F) 05/14/2023 1:48 PM GRADER OPERATOR Respiratory Rate 18 05/14/2023 5:30 PM GRADER OPERATOR Oxygen Saturation 97% 12/05/2024 8:35 AM CDT [...] 02/21/2020, 04/14/2019 Medical Devices Implanted Type Area Lab Tech Device Identifier Shelf Expiration Date Model / Serial / Lot Icd ICD Chest [facility] [employer] [id number] Unify Assura Rf Telemetry [facility] Is-1 Connector 40j - [id number] - [id number] Implanted:Qty: 1 on 02/14/2019 by Lexa Tapia MD at [facility] ICD [facility] [employer] [id number] 04/15/2020 [id number] / [id number] / Procedures Procedure Name Priority Date/Time Associated Diagnosis Comments ECG 12-LEAD Routine 10/25/2024 11:12 AM CDT Cardiac arrhythmia, unspecified cardiac arrhythmia type DEVICE CHECK - IN OFFICE Routine 10/25/2024 10:48 AM CDT ICD (implantable cardioverter-defibri llator) in place from Last 3 Months Results * ECG [...] 9.6 seconds Episodes last 90 days/Comments: AF [place] 0% No new ventricular events NORMAL DEVICE FUNCTION PROGRAMMED MEDICATIONS: Anti-coagulant(s): Aspirin 81 mg Anti-arrhythmic(s): Sotalol 120 mg twice a day, Lopressor 25 mg twice a day PLAN: 1) Weathers ICD evaluation. 2) Weathers remote transmission scheduled in 3 months. 3) Programming appropriate for device measurements Lidia Elizabeth RN Donte Stanford III, MD CV CARDIAC SERVICES PROCEDURES Final Result from Last 3 Months Insurance MEDICARE [facility] MEDICARE BLUE CROSS MEDICARE SUPPLEMENT [facility] Care Teams Emergency Planner Relationship Specialty Start Date End Date Hermilo Jacobsen MD PCP - General 08/14/16
[2025-01-23 11:56] LABS: Iron 83 ug/dL (49-181)
[2025-01-23 12:01] LABS: Alanine Aminotransferase 51 U/L (6-50); Albumin Level 3.8 g/dL (3.5-5.1); Alkaline Phosphatase 112 U/L (38-126); Anion Gap 8 mmol/L (4-12); Aspartate Amino Transferase 48 U/L (17-59); Bilirubin,Total 0.7 mg/dL (0.2-1.3); Blood Urea Nitrogen 26 mg/dL (9-20); Calcium 9.0 mg/dL (8.4-10.2); Carbon Dioxide 22 mmol/L (22-30); Chloride 108 mmol/L (98-107); Estimated Glomerular Filt Rate 53; Glucose 103 mg/dL (65-110); Potassium 4.9 mmol/L (3.4-5.0); Sodium 138 mmol/L (137-145); Total Protein 6.9 g/dL (6.3-8.2)
[2025-01-23 12:10] LABS: Percent Iron Saturation 24 % (20-50)
[2025-01-23 12:40] LABS: Ferritin 35.20 ng/mL (11.1-264)
[2025-01-23 13:16] LABS: Vitamin B12 716.0 pg/mL (239-931)
== END 2025-01-23 10:17 | disposition home or self-care (01) ==
PROVIDERS: PCP Family Medicine; Visit Provider Internal Medicine Hematology & Oncology
DX: D53.9 Nutritional anemia, unspecified (principal); E83.110 Hereditary hemochromatosis
CPT/HCPCS: 36415; 80053; 82607; 82728; 82746; 83540; 83550; 85025

== ENCOUNTER 2025-03-26 12:15 | Outpatient (CLI) | payer MEDICARE, SELFPAY ==
--- OUTSIDE RECORDS SUMMARY | 2025-03-26 12:38 | XMS_ITS | Encounter Summary ---
Author Organization [facility] Address [address] [facility] [address] [place] [address] Care Team Providers Care Production Material Handler Name Role Phone Hermilo Jacobsen MD Primary Care Provider Encounter Details Date Type Department Care Team (Late st Contact Info) Description 08/18/2016 Orders Only [facility] ProviderKarli MD [address] [place] [address] Social History Tobacco Use Types Packs/Day Years Used Date Smoking Tobacco: Former Cigarettes Q uit: 05/17/1983 Alcohol Use Standard Drinks/Week Comments Yes 0 (1 standard drink = 0.6 oz pur e alcohol) Sex and Gender Information Value Date Recorded Sex Assigned at Not on file 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
--- OUTSIDE RECORDS SUMMARY | 2025-03-26 12:38 | XMS_ITS | Clinical Summary ---
Author Organization [facility] Address [address] [place] [address] Care Team Providers Care Brattice Builder Name Role Phone Hermilo Jacobsen MD Primary Care Provider Allergies Active Allergy Reactions Criticality Noted Date Comments Nitroglycerin Headache Low 05/30/2023 Rec'd TNG LS for CTA coronary arteries 04/2023. Developed MAIN, lightheadedness, pain up and down his back, some shortness of breath and possible some hypoxemia. Seen in the ER, Improved rapidly, discharged. Medications sotalol (BETAPACE) 120 mg Tablet Take [...] rosuvastatin (CRESTOR) 20 mg tablet 03/04/2020 Active aspirin (ECOTRIN EC) 81 mg Tablet, Delayed Release (E.C.) Take 81 mg by mouth daily. 05/19/2023 Active calcium as CARBONATE (CALTRATE) 1,500 mg (600 mg elemental) Tablet Take 1,500 mg by mouth. Active Cholecalciferol, Vitamin D3, 50 mcg (2,000 unit) Capsule 2,000 Units. Active escitalopram oxalate (LEXAPRO) 10 mg tablet Take 10 mg by mouth daily. 04/11/2024 Active losartan (COZAAR) 50 mg tablet Take 50 mg by mouth daily. Active turmeric root extract 500 mg Capsule Take 1,000 mg by mouth. Active omega-3 fatty acids-fish oil 300-400 mg Capsule Take 600 mg by mouth. Active Active Problems Problem Noted Date Diagnosed Date Macrocytic anemia 11/01/2019 Pacemaker 09/15/2017 Resolved Problems Problem Noted Date Diagnosed Date Resolved Date Macrocytosis without anemia 09/15/2017 11/01/2019 Encounters Date Type Department Care Team Description 03/14/2025 External Device Data STL ABSTRACTION Provider, Abstract 03/13/2025 External Device Data ST[facility] ABSTRACTION Provider, Abstract 03/07/2025 External Device Data [facility] ABSTRACTION Provider, Abstract 03/06/2025 External Device Data [facility] ABSTRACTION Provider, Abstract 02/01/2025 10:15 AM CDT Office Visit [facility] Oncology and [facility] [address] [place] [address] Maurice Lang MD Hereditary hemochromatosis (Primary Dx); Macrocytic anemia 01/30/2025 External Device Data STL ABSTRACTION Provider, Abstract 01/30/2025 External Device Data ST[facility] ABSTRACTION Provider, Abstract 01/23/2025 Orders Only [facility] Oncology and [facility] [address] [place] [address] Maurice Lang MD 01/02/2025 External Device Data STL ABSTRACTION Provider, [...] Sign Reading Time Taken Comments Blood Pressure 125/64 02/01/2025 9:38 AM CDT Pulse 54 02/01/2025 9:38 AM CDT Temperature 36.2 C (97.1 F) 02/01/2025 9:38 AM CDT Respiratory Rate 15 02/01/2025 9:38 AM CDT Oxygen Saturation 98% 02/01/2025 9:38 AM CDT Inhaled Oxygen Concentration - - Weight 84 kg (185 lb 3.2 oz) 02/01/2025 9:38 AM CDT Height 182.9 cm (6') 01/29/2022 9:49 AM CDT Body Mass Index 25.12 01/29/2022 9:49 AM CDT Plan of Treatment Upcoming Encounters Date Type Department Care Team (Late st Contact Info) Description 10/29/2025 11:00 AM CDT Office Visit [facility] Oncology and Hematology - [place] [address] [facility] [address] [place] [address] Maurice Lang MD [address] [facility] [address] [place] [address] Health Maintenance Due Date Last [...] Procedure Name Priority Date/Time Associated Diagnosis Comments COMPREHENSIVE METABOLIC PANEL Routine 01/23/2025 3:56 PM CDT CBC WITH AUTODIFFERENTIAL Routine 2024 3:43 PM CDT from Last 3 Months Results * COMPREHENSIVE METABOLIC PANEL (01/23/2025 3:56 PM CDT) Blood us Maurice Lang MD CHEMISTRY ORDERABLES Final Resu lt * CBC WITH AUTODIFFERENTIAL (01/23/2025 3:43 PM CDT) Blood Maurice Lang MD HEMATOLOGY ORDERABLES Final Res ult from Last 3 Months Insurance MEDICARE PART A AND B [facility] MEDICARE PART A AND B BS SUPP Care Teams Brattice Builder Relationship Specialty Start Date End Date Hermlio Jacobsen MD [address] [place] [address] PCP - General Family Practice 09/06/17
--- OUTSIDE RECORDS SUMMARY | 2025-03-26 12:38 | XMS_ITS | Encounter Summary ---
Author Organization [facility] Address [address] [facility] [address] [place] [address] Care Team Providers Care Medical Research Associate Name Role Phone Hermilo Jacobsen MD Primary Care Provider + [phone] Hermilo Jacobsen MD Primary Care Provider + [phone] Encounter Details Date Type Department Care Team (Late st Contact Info) Description 05/20/2016 Orders Only [facility] ProviderKarli MD [address] [place] [address] Social History Tobacco Use Types Packs/Day Years Used Date Smoking Tobacco: Former Cigarettes Q uit: 05/17/1983 Alcohol Use Standard Drinks/Week Comments Yes 0 (1 standard drink = 0.6 oz pur e alcohol) Sex and Gender Information Value Date Recorded Sex Assigned at Not on file 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
--- OUTSIDE RECORDS SUMMARY | 2025-03-26 12:38 | XMS_ITS | Encounter Summary ---
Author Organization [facility] Address [address] [facility] [address] [place] [address] Care Team Providers Care Medical Billing Specialist Name Role Phone Hermilo Jacobsen MD Primary Care Provider + [phone] Hermilo Jacobsen MD Primary Care Provider + [phone] Encounter Details Date Type Department Care Team (Late st Contact Info) Description 06/09/2016 Orders Only [facility] ProviderKarli MD [address] [place] [address] Social History Tobacco Use Types Packs/Day Years Used Date Smoking Tobacco: Former Cigarettes Q uit: 05/17/1983 Alcohol Use Standard Drinks/Week Comments Yes 0 (1 standard drink = 0.6 oz pur e alcohol) Sex and Gender Information Value Date Recorded Sex Assigned at Not on file 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
--- OUTSIDE RECORDS SUMMARY | 2025-03-26 12:38 | XMS_ITS | Clinical Summary ---
[facility] Organization [facility] Address [address] [place] [address] Care Team Providers Care Kennel Keeper Name Role Phone Hermilo Jacobsen MD Primary Care Provider [phone] Allergies Active Allergy Reactions Criticality Noted Date [...] mg total) by mouth daily 05/19/2023 Active escitalopram (LEXAPRO) 10 mg tablet Take [...] A DAY 180 tablet 2 09/11/2024 Active memantine (NAMENDA) 10 mg tablet Take 1 tablet (10 mg total) by mouth 2 (two) times a day 10/16/2024 Active calcium carbonate (OS-NAIF) 1,500 mg (600 mg elemental) tablet Take 1 tablet (1,500 mg total) by mouth Active cholecalciferol (VITAMIN D-3) 2000 unit capsule 1 capsule (2,000 Units total) Active omega-3 fatty acids-fish oil 300-400 mg capsule Take 600 mg by mouth Active turmeric root extract 500 mg capsule Take 1,000 mg by mouth Active cyanocobalamin, vitamin B-12, (Vitamin B-12) 5,000 mcg tablet, sublingual Place under the tongue Active sotaloL (BETAPACE) 120 mg tablet TAKE 1 TABLET BY MOUTH TWICE A DAY 180 tablet 3 12/29/2024 Active Active Problems Problem Noted Date Diagnosed Date Nonobstructive atherosclerosis of coronary arter y 10/15/2023 HANDY (dyspnea on exertion) 04/13/2023 Pacemaker lead failure, subsequent encounter Hypercholesteremia 09/10/2020 Hyperkalemia 03/05/2020 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 S/p MILLING/POLISHING OPERATOR-D system implantation. LV lead nonfunctional and programmed off. LVE stable/normal. Recommend observation for now. Favor LV lead revision at time of generator replacement. Sooner if pt develops new symptoms or EF decline. --Continue remote device monitoring Assessment & Plan (10/20/2023 12:51 PM CDT): S/p MILLING/POLISHING OPERATOR-D system implantation. LV lead non-functional and [...] year Assessment & Plan (06/23/2023 11:[address]): S/p MILLING/POLISHING OPERATOR-D system with LV lead fracture. LV function remains generally preserved. He has mild HF symptoms but is quite functional, with no significant recent decline. We discussed indications for device revision with new LV lead. Given clinical stability, favor waiting and reassessing LV function. If there is decline, we would plan to revise his device. --Continue remote device f/u via [place] --TTE as scheduled in September --F/u with me in October as scheduled Assessment & Plan (11/04/2022 11:23 AM CDT): S/p MILLING/POLISHING OPERATOR-D system implantation. LV lead fracture, now [...] BI-V ICD implanted on 02/14/19 for NICM/CHF/LBBB. [employer]. Chronic RA/RV/LV leads are from 02/12/11. VT (ventricular tachycardia) 11/25/2016 Assessment & Plan (10/25/2024 11:24 AM CDT): Chronic, stable. No VT events. Well suppressed on sotalol. ECG personally interpreted- Qtc acceptable for ongoing sotalol use. --Continue sotalol 120 mg BID Assessment & Plan (10/20/2023 12:51 PM CDT): Stable, no recurrence. Tolerating sotalol. --Continue sotalol 120 mg BID Assessment & Plan (06/23/2023 11:[address]ER): Stable/no events. --Continue sotalol 120 mg BID [...] Plan (11/25/2016 11:49 AM CDT): Status post MILLING/POLISHING OPERATOR. Resolved Problems Problem Noted Date Diagnosed [...] Encounters Date Type Department Care Team Description 01/30/2025 8:15 AM CDT Ancillary Procedure [facility] [address] [place] [id number] Left bundle branch block (LBBB); NICM (nonischemic cardiomyopathy) (HCC); 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); Congestive heart failure, unspecified HF chronicity, unspecified heart failure type (HCC) from Last 3 Months Immunizations [...] on file Legal Sex Male 2:[address] Gender Identity Not on file Sexual Orientation Not on file Last Filed Vital Signs Vital Sign Reading Time Taken Comments Blood Pressure 102/56 12/05/2024 8:35 AM CDT Pulse 56 12/05/2024 8:35 AM CDT Temperature 37 C (98.6 F) 05/14/2023 1:[address] Respiratory Rate 18 05/14/2023 5:[address] Oxygen Saturation 97% 12/05/2024 8:35 AM CDT [...] AA) Screen 08/30/2012 Well Visit 65+ 08/30/2012 Covid-19 Vaccine (5 - 5-2 6 season) 2025 12/21/2021, 03/28/2021, 07/26/2020, Additional history exists Influenza Vaccine (#1) 2025 4, 02/23/2022, 02/03/2021, Additional history exists DTaP/Tdap/Td Vaccine (2 - Td or Tdap) 10/18/2028 10/18/2018 Zoster Vaccine Completed 02/21/2020, 04/14/2019 Pneumococcal vaccine 65+ Completed 03/07/2020, 08/2018 Medical Devices Implanted Type Area Teaching Manager Device Identifier Shelf Expiration Date Model / Serial / Lot Icd ICD Chest [employer] [id number] Unify Assura Rf Telemetry [id number] Is-1 Connector 40j - [id number] - [id number] Implanted:Qty: 1 on 02/14/2019 by Lexa Tapia MD at [facility] ICD [employer] [id number] 04/15/2020 [id number] / [id number] / Procedures Procedure Name Priority Date/Time Associated Diagnosis Comments DEVICE CHECK - REMOTE Routine 02/01/2025 11:44 AM CDT Left bundle branch block (LBBB) NICM (nonischemic cardiomyopathy) (HCC) 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 Regina Kadie Ganesh. Chronic RA/RV/LV leads are from 02/12/11. Routine DDDR ICD Remote. Transmission attached. Battery status 31%, 2.2-2.9 years remaining battery life to [place]. Stable Charge time and Shock impedance. Stable lead impedances, pacing, and sensing threshold. Presenting rhythm: /VS AP-10 %, RVP-< 1 % (0) AT/AF episodes noted. (1) Ventricular tachy arrhythmias detected. IEGM demonstrates 6 sec of NSVT. Medication: ASA 81 mg, losartan 50 mg, metoprolol 25 mg, sotalol 120 mg Follow up: Office Pacemaker/ICD scheduled 11/07/25 [facility] 05/01/25 Olvin Smith RN [facility] Tarik Dougherty MD CV CARDIAC SERVICES PRO CEDURES Final Result from Last 3 Months Insurance MEDICARE [facility] MEDICARE [employer] MEDICARE SUPPLEMENT MEDICARE [facility] Care Teams Kennel Keeper Relationship Specialty Start Date End Date Hermilo Jacobsen MD PCP - General 08/14/16
[2025-03-26 13:38] LABS: CRP < 0.5 mg/dL (<1.0)
[2025-03-27 14:08] LABS: Deamidated Gliadin Abs, IgA 53 units (0-19); Deamidated Gliadin Abs, IgG 3 units (0-19); Immunoglobulin A, Qn 297 mg/dL (61-437)
== END 2025-03-26 12:16 | disposition home or self-care (01) ==
LOC: ANHLAB 12:17
PROVIDERS: PCP Family Medicine; Visit Provider Nurse Practitioner Family
DX: K90.0 Celiac disease (principal)
CPT/HCPCS: 36415; 82784; 85652; 86140; 86231; 86258